=== PATIENT | male | born 1955 | race Two or more races ===

== ENCOUNTER 2018-05-07 10:13 | Emergency (ER) | payer OTHER ==
[~2018-05-07] VITALS: Ht 167.6 cm; Wt 99.8 kg
[2018-05-07] MEDS ORDERED: ETOMIDATE (2MG/ML) 20ML VIAL IV ONE ×3 (11:00→13:15)
[2018-05-07 13:22] VITALS: BP 162/95
== END 2018-05-07 14:24 | disposition home or self-care (01) ==
LOC: ER 10:13
DX: S53.105A Unspecified dislocation of left ulnohumeral joint, initial encounter (principal); S52.022A Displaced fracture of olecranon process without intraarticular extension of left ulna, initial encounter for closed fracture; S00.81XA Abrasion of other part of head, initial encounter; E11.9 Type 2 diabetes mellitus without complications; M10.9 Gout, unspecified; E78.5 Hyperlipidemia, unspecified; Y08.89XA Assault by other specified means, initial encounter; Y93.89 Activity, other specified; Y99.8 Other external cause status; Y92.89 Other specified places as the place of occurrence of the external cause
CPT/HCPCS: 24600; 73060; 73070; 73080; 73090; 99285; J7030

== ENCOUNTER 2019-04-11 11:06 | Emergency (ER) | payer MEDICAID, OTHER ==
[~2019-04-11] VITALS: Ht 167.6 cm; Wt 97.5 kg
[2019-04-11 11:15] VITALS: BP 150/77
== END 2019-04-11 12:19 | disposition home or self-care (01) ==
LOC: ER 11:06
DX: B86 Scabies (principal); E11.9 Type 2 diabetes mellitus without complications; E78.5 Hyperlipidemia, unspecified

== ENCOUNTER 2019-11-07 12:07 | Emergency (ER) | payer SELFPAY ==
[~2019-11-07] VITALS: Ht 167.6 cm; Wt 99.8 kg
[2019-11-07] MEDS ORDERED: cefTRIAXone SOD 1,000 MG VL IM ONE (14:30)
[2019-11-07] MEDS ORDERED: ETHYL CHLORIDE SPRAY TOP ONE (15:00)
[2019-11-07 15:46] VITALS: BP 127/76
== END 2019-11-07 16:02 | disposition home or self-care (01) ==
LOC: ER 12:07
DX: M79.5 Residual foreign body in soft tissue (principal); E11.9 Type 2 diabetes mellitus without complications; M10.9 Gout, unspecified; E78.5 Hyperlipidemia, unspecified
CPT/HCPCS: 10120; 73620; 73630; 96372; 99284; J0696

== ENCOUNTER 2021-03-01 10:49 | Emergency (ER) | payer MEDICAID ==
[~2021-03-01] VITALS: Ht 167.6 cm; Wt 95.3 kg
[2021-03-01 16:43] VITALS: BP 115/72
== END 2021-03-01 15:04 | disposition short-term general hospital (02) ==
LOC: ER 10:49
DX: H54.61 Unqualified visual loss, right eye, normal vision left eye (principal); E11.9 Type 2 diabetes mellitus without complications; E78.5 Hyperlipidemia, unspecified; I10 Essential (primary) hypertension
CPT/HCPCS: 70480

== ENCOUNTER 2023-01-21 11:08 | Emergency (ER) | payer MEDICARE, MEDICAID ==
[~2023-01-21] VITALS: Ht 167.6 cm; Wt 52.0 kg
[2023-01-21] MEDS ORDERED: FLUORESCEIN SOD OPTH TEST STRIP OP ONE (11:35)
[2023-01-21] MEDS ORDERED: SODIUM CHLORIDE 0.9% 1,000 ML IV ONE (11:45)
[2023-01-21] MEDS ORDERED: TETRACAINE HCL 0.5% OPTH(EYE) SOLN 4ML LEFTEYE ONE (11:45)
[2023-01-21] MEDS ORDERED: InsuLIN REG 1unit/0.01ml Soln (100units/ml) IV ONE (11:45)
[2023-01-21 12:02] LABS: Basophils # (auto) 0.1 10 ^3/uL (0-0.2); Basophils % (auto) 1.1 % (0.0-2.0); Eosinophils # (auto) 0.2 10 ^3/uL (0-0.8); Eosinophils % (auto) 1.7 % (0.0-7.0); Hematocrit 41.8 % (41.0-53.0); Hemoglobin 14.3 g/dL (13.5-17.5); Lymphocytes # (auto) 1.6 10 ^3/uL (0.4-5.4); Lymphocytes % (auto) 15.5 % (10.0-50.0); Mean Corpuscular Hemoglobin 29.7 pg (28.0-32.0); Mean Corpuscular Hgb Conc. 34.3 g/dL (32.0-36.0); Mean Corpuscular Volume 86.6 fL (80.0-100.0); Monocytes # (auto) 0.4 10 ^3/uL (0-1.3); Monocytes % (auto) 3.7 % (0.0-12.0); Neutrophils # (auto) 8.2 10 ^3/uL (1.6-8.6); Nucleated Red Blood Cells % 0.1 %; Red Blood Cells 4.83 10^6/uL (4.5-5.90); Red Cell Distribution Width 13.6 % (11.8-14.3); White Blood Cell 10.5 10^3/uL (4.4-10.8)
[2023-01-21 12:24] LABS: Albumin 2.8 g/dL (3.4-5.0); Calcium 9.2 mg/dL (8.5-10.1); Potassium 3.8 mmol/L (3.5-5.1)
[2023-01-21 12:28] LABS: BUN/Creatinine Ratio 15.5 (10.0-20.0); Bilirubin, Total 0.7 mg/dL (0.2-1.0); Total Protein 6.8 g/dL (6.4-8.2)
[2023-01-21] MEDS ORDERED: POLYSOL15 OP (13:19)
[2023-01-21 16:20] VITALS: BP 142/82
== END 2023-01-21 16:20 | disposition home or self-care (01) ==
LOC: ER 11:08
DX: D49.89 Neoplasm of unspecified behavior of other specified sites (principal); H10.9 Unspecified conjunctivitis; E11.9 Type 2 diabetes mellitus without complications; E78.5 Hyperlipidemia, unspecified; I10 Essential (primary) hypertension; M10.9 Gout, unspecified
CPT/HCPCS: 36415; 80053; 82962; 85025; 96361; 96374; 99283; J1815; J7030

== ENCOUNTER 2023-03-09 15:19 | Emergency (ER) | payer MEDICARE, MEDICAID ==
[~2023-03-09] VITALS: Ht 167.6 cm; Wt 77.5 kg
[~2023-03-09 15:19] MED LIST: POLYSOL28 OP
[2023-03-09] MEDS ORDERED: SODIUM CHLORIDE 0.9% 1,000 ML IV ONE (16:00)
[2023-03-09 16:18] LABS: Basophils # (auto) 0.1 10 ^3/uL (0-0.2); Basophils % (auto) 0.5 % (0.0-2.0); Eosinophils # (auto) 0.2 10 ^3/uL (0-0.8); Hematocrit 42.4 % (41.0-53.0); Hemoglobin 14.6 g/dL (13.5-17.5); Lymphocytes # (auto) 1.9 10 ^3/uL (0.4-5.4); Lymphocytes % (auto) 19.1 % (10.0-50.0); Mean Corpuscular Hemoglobin 29.6 pg (28.0-32.0); Mean Corpuscular Hgb Conc. 34.4 g/dL (32.0-36.0); Mean Corpuscular Volume 86.2 fL (80.0-100.0); Monocytes # (auto) 0.6 10 ^3/uL (0-1.3); Monocytes % (auto) 6.3 % (0.0-12.0); Neutrophils # (auto) 7.3 10 ^3/uL (1.6-8.6); Neutrophils % (auto) 72.1 % (37.0-80.0); Nucleated Red Blood Cells % 0.1 %; Red Blood Cells 4.92 10^6/uL (4.5-5.90); Red Cell Distribution Width 14.2 % (11.8-14.3); White Blood Cell 10.1 10^3/uL (4.4-10.8)
[2023-03-09 16:19] LABS: Urine Bacteria NONE SEEN /hpf (None Seen); Urine Blood 1+ /uL (Negative); Urine Hyaline Cast FEW /lpf (0 - 2); Urine Mucus FEW (None Seen); Urine Specific Gravity 1.019 (1.001-1.035); Urine WBC 2 /hpf (0 - 3)
[2023-03-09 16:43] LABS: Albumin 2.9 g/dL (3.4-5.0); Calcium 8.5 mg/dL (8.5-10.1); Potassium 3.6 mmol/L (3.5-5.1)
[2023-03-09 16:47] LABS: BUN/Creatinine Ratio 15.2 (10.0-20.0); Bilirubin, Total 1.1 mg/dL (0.2-1.0); Total Protein 6.4 g/dL (6.4-8.2)
[2023-03-09 19:15] VITALS: BP 149/85
== END 2023-03-09 19:19 | disposition home or self-care (01) ==
LOC: ER 15:19
DX: E11.65 Type 2 diabetes mellitus with hyperglycemia (principal); I10 Essential (primary) hypertension; M10.9 Gout, unspecified; E78.5 Hyperlipidemia, unspecified; Z79.899 Other long term (current) drug therapy
CPT/HCPCS: 36415; 80053; 81001; 82010; 85025; 99283; J7030

== ENCOUNTER 2023-03-25 09:02 | Emergency (ER) | payer MEDICARE, MEDICAID ==
[~2023-03-25] VITALS: Ht 393.7 cm; Wt 74.8 kg
[2023-03-25 09:28] LABS: Basophils # (auto) 0.1 10 ^3/uL (0-0.2); Basophils % (auto) 0.8 % (0.0-2.0); Eosinophils # (auto) 0.2 10 ^3/uL (0-0.8); Eosinophils % (auto) 2.2 % (0.0-7.0); Hematocrit 44.6 % (41.0-53.0); Hemoglobin 15.3 g/dL (13.5-17.5); Lymphocytes # (auto) 1.7 10 ^3/uL (0.4-5.4); Lymphocytes % (auto) 19.8 % (10.0-50.0); Mean Corpuscular Hemoglobin 29.8 pg (28.0-32.0); Mean Corpuscular Hgb Conc. 34.3 g/dL (32.0-36.0); Mean Corpuscular Volume 86.7 fL (80.0-100.0); Monocytes # (auto) 0.4 10 ^3/uL (0-1.3); Monocytes % (auto) 4.4 % (0.0-12.0); Neutrophils # (auto) 6.2 10 ^3/uL (1.6-8.6); Neutrophils % (auto) 72.8 % (37.0-80.0); Red Blood Cells 5.14 10^6/uL (4.5-5.90); Red Cell Distribution Width 14.4 % (11.8-14.3); White Blood Cell 8.4 10^3/uL (4.4-10.8)
[2023-03-25 09:54] LABS: Albumin 2.8 g/dL (3.4-5.0); Calcium 9.4 mg/dL (8.5-10.1); Potassium 4.2 mmol/L (3.5-5.1)
[2023-03-25 09:57] LABS: BUN/Creatinine Ratio 25.5 (10.0-20.0); Bilirubin, Total 0.8 mg/dL (0.2-1.0); Total Protein 7.4 g/dL (6.4-8.2)
[2023-03-25] MEDS ORDERED: KETOROLAC TROMETH 60MG/2ML VIAL IM ONE (10:45)
[2023-03-25 10:47] VITALS: BP 146/90
== END 2023-03-25 10:49 | disposition home or self-care (01) ==
LOC: ER 09:02
DX: R51.9 Headache, unspecified (principal); E11.9 Type 2 diabetes mellitus without complications; E78.5 Hyperlipidemia, unspecified; I10 Essential (primary) hypertension
CPT/HCPCS: 36415; 70450; 80053; 85025

== ENCOUNTER 2023-09-13 12:50 | Emergency (ER) | payer MEDICARE, MEDICAID ==
[~2023-09-13] VITALS: Ht 162.6 cm; Wt 84.0 kg
[2023-09-13] MEDS ORDERED: LABETALOL HCL 5 MG/ML 4ML SYRINGE IV ONE (13:00)
[2023-09-13 13:40] LABS: Basophils # (auto) 0.1 10 ^3/uL (0-0.2); Basophils % (auto) 0.7 % (0.0-2.0); Eosinophils # (auto) 0.3 10 ^3/uL (0-0.8); Hematocrit 37.4 % (41.0-53.0); Hemoglobin 12.6 g/dL (13.5-17.5); Lymphocytes # (auto) 1.6 10 ^3/uL (0.4-5.4); Lymphocytes % (auto) 18.2 % (10.0-50.0); Mean Corpuscular Hemoglobin 30.1 pg (28.0-32.0); Mean Corpuscular Hgb Conc. 33.8 g/dL (32.0-36.0); Mean Corpuscular Volume 88.9 fL (80.0-100.0); Monocytes # (auto) 0.6 10 ^3/uL (0-1.3); Monocytes % (auto) 7.2 % (0.0-12.0); Neutrophils # (auto) 6.2 10 ^3/uL (1.6-8.6); Neutrophils % (auto) 70.9 % (37.0-80.0); White Blood Cell 8.7 10^3/uL (4.4-10.8)
[2023-09-13 13:57] LABS: INR 0.96 (0.9-1.15); Partial Thromboplastin Time 32.2 SEC (24.5-34.5); Prothrombin Time 10.1 sec (9.3-11.8)
[2023-09-13 13:59] LABS: Alkaline Phosphatase 109 U/L (46-116)
[2023-09-13 14:00] LABS: Alanine Aminotransferase 13 U/L (7-40); Albumin 3.7 g/dL (3.2-4.8); Anion Gap 7 (5-15); Aspartate Aminotransferase 24 U/L (13-40); BUN/Creatinine Ratio 23.4 (10.0-20.0); Bilirubin, Total 0.6 mg/dL (0.2-1.0); Blood Urea Nitrogen 26 mg/dL (9-23); Calcium 8.7 mg/dL (8.7-10.4); Carbon Dioxide 25 mmol/L (20-30); Chloride 108 mmol/L (98-107); Glucose 101 mg/dL (74-106); Magnesium 2.2 mg/dL (1.6-2.6); Potassium 4.1 mmol/L (3.5-5.1); Sodium 140 mmol/L (136-145); Total Protein 6.3 g/dL (5.7-8.2)
[2023-09-13] MEDS ORDERED: IOHEXOL 350 MG/ML 100ML IJ ONE (16:51)
[2023-09-13] MEDS ORDERED: FUROSEMIDE 40 MG/4 ML VIAL IV ONE (18:45)
[2023-09-13 21:25] VITALS: PULSE 79; RESP 18; TEMP 98.9; O2SAT 98
[2023-09-13] MEDS ORDERED: AML5T PO (21:35)
[2023-09-13] MEDS ORDERED: CEPH500C PO (21:35)
[2023-09-13] MEDS ORDERED: NEOMYCIN-BACITRACIN-POLYM UNITDOSE PKG TOP OINT TOP ONE (21:45)
[2023-09-13] MEDS ORDERED: FURO1TAB33 PO (21:55)
[2023-09-13 22:38] VITALS: BP 158/80; PULSE 73; RESP 18; O2SAT 98
== END 2023-09-13 22:57 | disposition home or self-care (01) ==
LOC: ER 12:50
DX: T24.231A Burn of second degree of right lower leg, initial encounter (principal); R60.0 Localized edema; I16.9 Hypertensive crisis, unspecified; J90 Pleural effusion, not elsewhere classified; R07.89 Other chest pain; E11.9 Type 2 diabetes mellitus without complications; Z79.899 Other long term (current) drug therapy; X16.XXXA Contact with hot heating appliances, radiators and pipes, initial encounter; Y93.89 Activity, other specified; Y92.89 Other specified places as the place of occurrence of the external cause; Y99.8 Other external cause status
CPT/HCPCS: 36415; 71045; 71275; 80053; 83735; 83880; 84484; 85025; 85379; 85610; 85730; 93005; 96374; 96375; 99285; J1940; J3490; J7030; Q9967

== ENCOUNTER 2023-12-18 09:30 | Inpatient (IN) | payer MEDICARE, MEDICAID ==
[~2023-12-18] VITALS: Ht 167.6 cm; Wt 92.9 kg
[~2023-12-18 09:30] MED LIST changes: +AML5T PO; +CEPH500C PO; +FURO1TAB33 PO
[2023-12-18] MEDS: ALBUTEROL SULF 2.5 MG/0.5ML(0.5%) NEB SOLN NEB ONE (09:59)
[2023-12-18] MEDS: IPRATROPIUM BROM 0.5 MG/2.5ML INH SOL NEB ONE (09:59)
[2023-12-18 10:09] VITALS: PULSE 74; RESP 20; O2SAT 99
[2023-12-18 10:23] LABS: Basophils # (auto) 0 10 ^3/uL (0-0.2); Basophils % (auto) 0.8 % (0.0-2.0); Eosinophils # (auto) 0.2 10 ^3/uL (0-0.8); Eosinophils % (auto) 4.1 % (0.0-7.0); Hematocrit 35.5 % (41.0-53.0); Hemoglobin 11.6 g/dL (13.5-17.5); Lymphocytes # (auto) 1.3 10 ^3/uL (0.4-5.4); Lymphocytes % (auto) 20.6 % (10.0-50.0); Mean Corpuscular Hemoglobin 29.2 pg (28.0-32.0); Mean Corpuscular Hgb Conc. 32.8 g/dL (32.0-36.0); Monocytes # (auto) 0.3 10 ^3/uL (0-1.3); Monocytes % (auto) 5.7 % (0.0-12.0); Neutrophils # (auto) 4.2 10 ^3/uL (1.6-8.6); Neutrophils % (auto) 68.8 % (37.0-80.0); Red Blood Cells 3.98 10^6/uL (4.5-5.90); White Blood Cell 6.1 10^3/uL (4.4-10.8)
[2023-12-18 10:30] LABS: Alanine Aminotransferase 20 U/L (7-40); Alkaline Phosphatase 111 U/L (46-116); Anion Gap 4 (5-15); BUN/Creatinine Ratio 30.5 (10.0-20.0); Blood Urea Nitrogen 43 mg/dL (9-23); Calcium 9.1 mg/dL (8.5-10.1); Carbon Dioxide 26 mmol/L (20-30); Chloride 110 mmol/L (98-107); Glucose 125 mg/dL (74-106); Potassium 4.7 mmol/L (3.5-5.1); Sodium 140 mmol/L (136-145)
[2023-12-18 10:31] LABS: Albumin 3.7 g/dL (3.2-4.8); Aspartate Aminotransferase 26 U/L (13-40); Bilirubin, Total 0.5 mg/dL (0.2-1.0); Total Protein 5.9 g/dL (5.7-8.2)
[2023-12-18] MEDS: LABETALOL HCL 5 MG/ML 4ML SYRINGE IV ONE (10:42)
[2023-12-18 10:56] LABS: INR 0.99 (0.9-1.15); Prothrombin Time 10.4 sec (9.3-11.8)
[2023-12-18] MEDS: ASPirin-EC 325mg tab PO ONE (12:33)
[2023-12-18] MEDS: FUROSEMIDE 40 MG/4 ML VIAL IV ONE (12:37)
[2023-12-18 20:00] VITALS: PULSE 71; RESP 18; O2SAT 96
[2023-12-18] MEDS: METOPROLOL TARTRATE 50 MG TAB PO SCH (20:04)
[2023-12-18] MEDS: FUROSEMIDE 20 MG/2 ML VIAL IV SCH (20:07)
[2023-12-18] MEDS: amLODIPine BESYLATE 5 MG TAB PO SCH (20:07)
[2023-12-18] MEDS ORDERED: METOPROLOL TARTRATE 50 MG TAB PO SCH (22:00)
[2023-12-18] MEDS: ATORVASTATIN 20 MG TAB PO SCH (23:05)
[2023-12-19] VITALS (10 sets, daily range): BP systolic 103–145; BP diastolic 61–79; PULSE 5–64; RESP 14–19; TEMP 96.8–98.2; O2SAT 96–98
[2023-12-19] MEDS: hydrALAZINE HCL 20 MG/ML VL IV PRN (00:30)
[2023-12-19 06:30] LABS: Basophils # (auto) 0.1 10 ^3/uL (0-0.2); Basophils % (auto) 1.1 % (0.0-2.0); Eosinophils # (auto) 0.2 10 ^3/uL (0-0.8); Eosinophils % (auto) 4.4 % (0.0-7.0); Hematocrit 32.2 % (41.0-53.0); Hemoglobin 10.7 g/dL (13.5-17.5); Lymphocytes # (auto) 1.2 10 ^3/uL (0.4-5.4); Lymphocytes % (auto) 21.3 % (10.0-50.0); Mean Corpuscular Hemoglobin 29.6 pg (28.0-32.0); Mean Corpuscular Hgb Conc. 33.2 g/dL (32.0-36.0); Mean Corpuscular Volume 89.1 fL (80.0-100.0); Monocytes # (auto) 0.4 10 ^3/uL (0-1.3); Monocytes % (auto) 7.1 % (0.0-12.0); Neutrophils # (auto) 3.6 10 ^3/uL (1.6-8.6); Neutrophils % (auto) 66.1 % (37.0-80.0); Nucleated Red Blood Cells % 0.1 %; Red Blood Cells 3.62 10^6/uL (4.5-5.90); Red Cell Distribution Width 15.9 % (11.8-14.3); White Blood Cell 5.5 10^3/uL (4.4-10.8)
[2023-12-19 06:53] LABS: Alanine Aminotransferase 15 U/L (7-40); Albumin 3.4 g/dL (3.2-4.8); Alkaline Phosphatase 82 U/L (46-116); Anion Gap 8 (5-15); Aspartate Aminotransferase 25 U/L (13-40); BUN/Creatinine Ratio 23.3 (10.0-20.0); Bilirubin, Total 0.6 mg/dL (0.2-1.0); Blood Urea Nitrogen 35 mg/dL (9-23); Calcium 9.1 mg/dL (8.5-10.1); Carbon Dioxide 22 mmol/L (20-30); Chloride 110 mmol/L (98-107); Cholesterol 157 mg/dL (< 200); Glucose 87 mg/dL (74-106); HDL Cholesterol 57 mg/dL (40-59); LDL Cholesterol 85 mg/dL (< 100); Potassium 4.2 mmol/L (3.5-5.1); Sodium 140 mmol/L (136-145); Total Protein 5.7 g/dL (5.7-8.2); Triglycerides 122 mg/dL (< 150)
[2023-12-19] MEDS: ENOXAPARIN SOD 40 MG/0.4 ML SYRINGE SC SCH (09:19)
[2023-12-19 10:37] LABS: COVID19 ANTIGEN SOFIA FIA NEGATIVE (NEGATIVE)
[2023-12-19 11:02] LABS: Folate (Folic Acid) 8.65 ng/mL (>5.38)
[2023-12-19 11:52] LABS: Amphetamine Screen, Urine Neg (NEGATIVE); Protein, Urine 213.4 mg/dL (0.0-11.9)
[2023-12-19 11:53] LABS: Barbiturate Scree,Urine Neg (NEGATIVE); Benzodiazephine Screen, Urine Neg (NEGATIVE); Cannabinoid Screen, Urine Pos (NEGATIVE); Cocaine Screen, Urine Neg (NEGATIVE); Opiate Scree,Urine Neg (NEGATIVE); Phencyclidine Screen, Urine Neg (NEGATIVE)
[2023-12-19 11:54] LABS: Creatinine, Urine 18.42 mg/dL (30.0-125.0); Urine Protein/Creatinine Ratio 11.59
[2023-12-19 11:56] LABS: Urine Bacteria NONE SEEN /hpf (None Seen); Urine Blood 1+ /uL (Negative); Urine Clarity Clear (Clear); Urine Color Colorless (Yellow); Urine Protein, UAD 2+ (Negative); Urine Specific Gravity 1.008 (1.001-1.035); Urine Urobilinogen Normal (Negative); Urine WBC <1 /hpf (0 - 3); Urine pH 6.5 (5.0-9.0)
[2023-12-19 13:23] LABS: Rapid Influenza A Negative (Negative); Rapid Influenza B Negative (Negative)
[2023-12-19 14:38] LABS: Hepatitis B Surface Antibody Negative (Negative)
[2023-12-19 14:50] LABS: Hepatitis B Surface Antigen Negative (Negative)
[2023-12-19 15:11] LABS: Hepatitis B Core IgM Negative
[2023-12-20] VITALS (11 sets, daily range): BP systolic 125–145; BP diastolic 58–86; PULSE 52–61; RESP 16–18; TEMP 97.6–98.5; O2SAT 96–99
[2023-12-20 06:37] LABS: Chloride 110 mmol/L (98-107); Potassium 4.7 mmol/L (3.5-5.1); Sodium 141 mmol/L (136-145)
[2023-12-20 06:38] LABS: Anion Gap 3 (5-15); Carbon Dioxide 28 mmol/L (20-30)
[2023-12-20 06:39] LABS: Calcium 9.1 mg/dL (8.5-10.1)
[2023-12-20 06:43] LABS: Glucose 103 mg/dL (74-106)
[2023-12-20 06:44] LABS: BUN/Creatinine Ratio 25.9 (10.0-20.0); Blood Urea Nitrogen 41 mg/dL (9-23)
[2023-12-20 08:07] LABS: Complement C3 133 mg/dL (82-167); Immunoglobulin A 482 mg/dL (61-437); Immunoglobulin G, Serum 791 mg/dL (603-1613); Immunoglobulin M 53 mg/dL (20-172)
[2023-12-20] MEDS ORDERED: METF-370 PO (10:56)
[2023-12-20] MEDS ORDERED: LISI10TA34 PO (10:56)
[2023-12-20] MEDS ORDERED: FERR325T20 PO (10:56)
[2023-12-20 11:06] LABS: Anti-Centromere B Antibody <0.2 AI (0.0-0.9); Anti-Jo-1 Antibody <0.2 AI (0.0-0.9); Anti-dsDNA Antibody 6 IU/mL (0-9); Antichromatin Antibody <0.2 AI (0.0-0.9); Antiscleroderma-70 Antibody <0.2 AI (0.0-0.9); RNP Antibody <0.2 AI (0.0-0.9); Sjogren's Anti-SS-A Antibody <0.2 AI (0.0-0.9); Sjogren's Anti-SS-B Antibody <0.2 AI (0.0-0.9); Smith Antibody <0.2 AI (0.0-0.9)
[2023-12-20 13:07] LABS: Albumin 2.8 g/dL (2.9-4.4); Alpha-1-Globulin 0.3 g/dL (0.0-0.4); Alpha-2-Globulin 1.1 g/dL (0.4-1.0); Gamma Globulin 0.8 g/dL (0.4-1.8); Globulin Total 3.6 g/dL (2.2-3.9); Protein Total Serum 6.4 g/dL (6.0-8.5)
[2023-12-21] VITALS (7 sets, daily range): BP systolic 135–156; BP diastolic 66–83; PULSE 51–60; RESP 16–19; TEMP 98–98.5; O2SAT 95–100
[2023-12-21 07:31] LABS: Anion Gap 3 (5-15); Carbon Dioxide 28 mmol/L (20-30); Chloride 109 mmol/L (98-107); Potassium 4.5 mmol/L (3.5-5.1); Sodium 140 mmol/L (136-145)
[2023-12-21 07:37] LABS: BUN/Creatinine Ratio 27.6 (10.0-20.0); Blood Urea Nitrogen 45 mg/dL (9-23); Glucose 113 mg/dL (74-106)
[2023-12-21] MEDS: FUROSEMIDE 20 MG/2 ML VIAL IV SCH (11:24)
[2023-12-21 13:07] LABS: Cytoplasmic (C-ANCA) <1:20 titer (Neg:<1:20); Perinuclear (P-ANCA) <1:20 titer (Neg:<1:20)
[2023-12-21 19:06] LABS: Antiglomerular BM Antibody <0.2 units (0.0-0.9); Antimyeloperoxidase (MPO) Ab <0.2 units (0.0-0.9); Antiproteinase 3 (PR-3) Ab <0.2 units (0.0-0.9)
[2023-12-22] VITALS (9 sets, daily range): BP systolic 111–150; BP diastolic 67–79; PULSE 46–61; RESP 18; TEMP 97.4–98.2; O2SAT 96–99
[2023-12-22] MEDS: amLODIPine BESYLATE 5 MG TAB PO SCH (10:46)
[2023-12-22] MEDS ORDERED: LIDOCAINE 2%HCL (LOCAL ANESTH.) INJ 10ml MDV ONE (12:27)
[2023-12-22] MEDS ORDERED: GELATIN 1 SPONGE SIZE 50 TOP ONE (12:36)
[2023-12-22] MEDS: fentaNYL CITRATE 100 MCG/2 ML VL IV ONE (12:48)
[2023-12-22] MEDS: MIDAZOLAM HCL 2MG/2ML 2ml VIAL (1mg/ml) IV ONE (12:48)
[2023-12-22 16:06] LABS: Albumin Urine 65.7 % (.); Alpha-1-Globulin Urine 7.5 % (.); Alpha-2-Globulin Urine 5.8 % (.); Beta Globulin Urine 13.5 % (.); Gamma Globulin Urine 7.5 % (.); Protein Total Urine 231.3 mg/dL (Not Estab.)
[2023-12-23 01:09] VITALS: BP 150/80; PULSE 51; RESP 18; TEMP 98; O2SAT 93
[2023-12-23 05:00] VITALS: BP 125/67; PULSE 55; RESP 18; TEMP 98.1; O2SAT 94
[2023-12-23 07:09] LABS: Basophils # (auto) 0.1 10 ^3/uL (0-0.2); Basophils % (auto) 1.4 % (0.0-2.0); Eosinophils # (auto) 0.2 10 ^3/uL (0-0.8); Eosinophils % (auto) 3.4 % (0.0-7.0); Hematocrit 29.7 % (41.0-53.0); Hemoglobin 9.7 g/dL (13.5-17.5); Lymphocytes % (auto) 21.2 % (10.0-50.0); Mean Corpuscular Hgb Conc. 32.6 g/dL (32.0-36.0); Monocytes # (auto) 0.4 10 ^3/uL (0-1.3); Neutrophils # (auto) 3.2 10 ^3/uL (1.6-8.6); Red Blood Cells 3.34 10^6/uL (4.5-5.90); White Blood Cell 4.9 10^3/uL (4.4-10.8)
[2023-12-23 07:22] LABS: Anion Gap 4 (5-15); Calcium 8.8 mg/dL (8.5-10.1); Carbon Dioxide 28 mmol/L (20-30); Chloride 109 mmol/L (98-107); Potassium 4.6 mmol/L (3.5-5.1); Sodium 141 mmol/L (136-145)
[2023-12-23 07:28] LABS: BUN/Creatinine Ratio 30.1 (10.0-20.0); Blood Urea Nitrogen 49 mg/dL (9-23); Glucose 86 mg/dL (74-106)
[2023-12-23 08:00] VITALS: PULSE 55; PULSE 59; RESP 20; O2SAT 94
[2023-12-23 08:18] VITALS: BP 112/52; PULSE 59; RESP 20; TEMP 97.9; O2SAT 94
[2023-12-23] MEDS ORDERED: ATOR20TA50 PO (12:02)
[2023-12-23] MEDS ORDERED: AML5T PO (12:02)
[2023-12-23] MEDS ORDERED: FURO1TAB31 PO (12:02)
[2023-12-23] MEDS ORDERED: MET50T PO (12:02)
[2023-12-23 12:33] VITALS: BP 114/66; PULSE 64; RESP 17; TEMP 97.5; O2SAT 93
[2023-12-23 12:57] VITALS: BP 140/64; PULSE 59; TEMP 36.4; O2SAT 96
== END 2023-12-23 15:15 | disposition home or self-care (01) | DRG 291 ==
LOC: ER 09:30 → TELE 13:10 → TELE-WESTW 12-19 01:56
PROVIDERS: ADMIT Nurse Practitioner Family; ATTEND Internal Medicine
DX: I13.0 Hypertensive heart and chronic kidney disease with heart failure and stage 1 through stage 4 chronic kidney disease, or unspecified chronic kidney disease (principal); I50.33 Acute on chronic diastolic (congestive) heart failure; I16.1 Hypertensive emergency; N17.9 Acute kidney failure, unspecified; Z20.822 Contact with and (suspected) exposure to COVID-19; D64.9 Anemia, unspecified; M17.0 Bilateral primary osteoarthritis of knee; I25.10 Atherosclerotic heart disease of native coronary artery without angina pectoris; E11.22 Type 2 diabetes mellitus with diabetic chronic kidney disease; N18.31 Chronic kidney disease, stage 3a; E66.9 Obesity, unspecified; Z68.33 Body mass index [BMI] 33.0-33.9, adult; Z79.899 Other long term (current) drug therapy; Z82.49 Family history of ischemic heart disease and other diseases of the circulatory system; Z83.3 Family history of diabetes mellitus
CPT/HCPCS: 10005; 36415; 71045; 71250; 74150; 74176; 76705; 76775; 77012; 80048; 80053; 80061; 80307; 81001; 82570; 82607; 82746; 82784; 83036; 83516; 83520; 83615; 83880; 84155; 84156; 84165; 84166; 84443; 84484; 85025; 85379; 85610; 86160; 86225; 86235; 86256; 86334; 86335; 86703; 86705; 86706; 86803; 87081; 87340; 87426; 87804; 93005; 93306; 93970; 94640; 96374; 96375; 97110; 97116; 97163; 97530; G0378; J2001; J2250; J3490

== ENCOUNTER 2024-08-06 03:56 | Inpatient (IN) | payer MEDICARE, MEDICAID ==
[2024-08-06] VITALS (12 sets, daily range): BP systolic 131–204; BP diastolic 65–93; PULSE 53–75; RESP 17–20; TEMP 97.4–97.5; O2SAT 95–100
[~2024-08-06] VITALS: Ht 167.6 cm; Wt 82.3 kg
[~2024-08-06 03:56] MED LIST changes: +AMLO1TAB23 PO; +ATOR20TA50 PO; -CEPH500C PO; +FERR325T20 PO; +FURO1TAB31 PO; -FURO1TAB33 PO; +LISI10TA34 PO; +MET50T PO; +METF-370 PO; -POLYSOL28 OP; +POTA-228 PO
--- NOTE | 2024-08-06 04:24 | ED.PDOC ---
History of Present Illness HPI Comments 69 y/o M, with CHF, DM, HLD, HTN, and medication non-compliancy, is BIBA for c/o shortness of breath, today. Per EMS report, patient endorses on unprovoked and sudden onset of difficulty breathing, while going to use his bathroom at home, at 0000, this morning. Patient was found on scene with a SpO2 of 94%RA and bilateral rales in addition to a blood pressure of 220/103 and a blood glucose of 112. All remaining vitals were within normal limits. En route, patient received 2x 0.4mg NTG, with SpO2 improving to mid 90's range. At time of assessment, patient comments on being non-compliant with all his prescribed medications for the past 4-5x months. Patient endorses no recent sick contact, travel, spoiled food, injuries, or substance use/exposure. Patient denies having any chest pain, wheezing, cough, dyspnea, fever, chills, or other associated symptoms or modifiers at this time. Chief Complaint: Shortness of Breath Time Seen by MD: 04:10 Primary Care Provider: ? Reviewed Notes: Nurses Notes, Client Care Manager Notes, Medications, Allergies Allergies: Coded Allergies: NO KNOWN ALLERGIES (Unverified , 05/07/18) Home Meds Active Scripts Furosemide (Lasix) 40 Mg Tab, 40 MG PO BID for 30 Days, #60 TAB 3 Refills Prov:UMA GARNICA MD 12/23/23 Atorvastatin Calcium (ATORVASTATIN CALCIUM) 20 Mg Tab, 20 MG PO HS for 30 Days, #30 TAB 3 Refills Prov:UMA GARNICA MD 12/23/23 Metoprolol Tartrate (LOPRESSOR TABLET) 50 Mg Tb, 50 MG PO BID for 30 Days, #60 TAB 3 Refills Prov:UMA GARNICA MD 12/23/23 Amlodipine Besylate (NORVASC TABLET) 5 Mg Tb, 10 MG PO DAILY for 30 Days, #30 TAB 3 Refills Prov:UMA GARNICA MD 12/23/23 Reported Medications Ferrous Sulfate (Ferosul) 325 Mg Tab, 1 TAB PO DAILY 12/20/23 Metformin Hydrochloride (Metformin Hcl) 500 Mg Tab, 1 TAB PO DAILY 12/20/23 Lisinopril (Lisinopril) 10 Mg Tab, 1 TAB PO DAILY 12/20/23 Information Source: Patient, Emergency Med Personnel Mode of Arrival: EMS Severity: Moderate Timing: Hours Duration: Since onset Prehospital treatment: 12 Lead EKG, Accucheck (112), Process Stripper, NTG (2x 0.4mg ) Past Medical History PAST MEDICAL HISTORY: CHF, DM, High Lipids, HTN Past Medical History (Other): medication non-compliancy Surgical History: Denies all surgeries Family History Family History: Reviewed,noncontributory to illness Social History Smoker: Non-Smoker Alcohol: Denies ETOH Use Drugs: Denies Drug Use Lives In: Home Constitutional: denies: chills, diaphoresis, fatigue, fever, malaise, sweats, weakness, others EENTM: denies: blurred vision, double vision, ear bleeding, ear discharge, ear drainage, ear pain, ear ringing, eye pain, eye redness, hearing loss, mouth pain, mouth swelling, nasal discharge, nose bleeding, nose congestion, nose pain, photophobia, tearing, throat pain, throat swelling, voice changes, others Respiratory: reports: shortness of breath; denies: cough, hemoptysis, orthopnea, SOB at rest, SOB with excertion, stridor, wheezing, others Cardiovascular: denies: chest pain, dizzy spells, diaphoresis, Dyspnea on exertion, edema, irregular heart beat, left arm pain, lightheadedness, palpitations, PND, syncope, others Gastrointestinal: denies: abdomen distended, abdominal pain, blood streaked bowels, constipated, diarrhea, dysphagia, difficulty swallowing, hematemesis, melena, nausea, poor appetite, poor fluid intake, rectal bleeding, rectal pain, vomiting, others Genitourinary: denies: burning, dysuria, flank pain, frequency, hematuria, incontinence, penile discharge, penile sore, pain, testicle pain, testicle swelling, urgency, others Neurological: denies: dizziness, fainting, headache, left sided numbness, left sided weakness, numbness, paresthesia, pre-existing deficit, right sided numbness, right sided weakness, seizure, speech problems, tingling, tremors, weakness, others Musculoskeletal: denies: back pain, gout, joint pain, joint swelling, muscle pain, muscle stiffness, neck pain, others Integumetry: denies: bruises, change in color, change in hair/nails, dryness, laceration, lesions, lumps, rash, wounds, others Allergic/Immunocompromised: denies: Difficulty Healing, Frequent Infections, Hives, Itching, others Hematologic/Lymphatic: denies: anemia, blood clots, easy bleeding, easy bruising, swollen glands, others Endocrine: denies: excessive hunger, excessive sweating, excessive thirst, excessive urination, flushing, intolerance to cold, intolerance to heat, u nexplained weight gain, unexplained weight loss, others Psychiatric: denies: anxiety, bipolar disorder, depression, hopeless, panic disorder, schizophrenia, sleepless, suicidal, others All Other Systems: Reviewed and Negative Physical Exam General Appearance: Moderate Distress HEENT: Normal ENT Inspection, Pharynx Normal, TMs Normal Neck: Full Range of Motion, Non-Tender, Normal, Normal Inspection Respiratory: Other (Coarse breath sounds) Cardiovascular: No Edema, No JVD, No Murmur, No Gallop, Normal Peripheral Pulses, Regular Rate/Rhythm Breast Exam: Deferred Gastrointestinal: No Organomegaly, Non Tender, No Pulsatile Mass, Normal Bowel Sounds, Soft Genitalia: Deferred Pelvic: Deferred Rectal: Deferred Extremities: Pedal edema Musculoskeletal : Apperance: Normal Neurologic: Alert Cerebellar Function: NOT DONE Reflexes: NOT DONE Skin: Normal Color Peripheral Pulses: 3+ Radial (R), 3+ Radial (L) Lymphatic: No Adenopathy Was a procedure done? Was a procedure done?: No EKG EKG : Pulse Rate (adult): 85 [place]: Normal Cardiac Rhythm: NSR Block: None Hypertrophy: None ST: Normal Differential Dx Considerations may include: PNA, bronchitis, Covid19, URI, PE, medication non-compliancy, CHF exacerbation X-Ray, Labs, Meds, VS Vital Signs Date Time Temp Pulse Resp B/P (MAP) Pulse Ox O2 Delivery O2 Flow Rate FiO2 08/06/24 04:50 188/81 08/06/24 04:41 188/81 08/06/24 04:30 98.0 75 18 188/81 (116) 95 98.0 08/06/24 04:24 85 08/06/24 04:02 98.7 90 20 189/91 (123) 95 98.7 08/06/24 04:02 Room Air 08/06/24 04:02 98.7 90 20 189/91 (123) 95 08/06/24 03:59 85 Lab Test 08/06/24 04:00 Range/Units White Blood Count 6.0 4.4-10.8 10^3/uL Red Blood Count 3.09 L 4.5-5.90 10^6/uL Hemoglobin 9.8 L 13.5-17.5 g/dL Hematocrit 29.0 L 41.0-53.0 % Mean Corpuscular Volume 93.8 80.0-100.0 fL Mean Corpuscular Hemoglobin 31.6 28.0-32.0 pg Mean Corpuscular Hemoglobin Concent 33.7 32.0-36.0 g/dL Red Cell Distribution Width 14.8 H 11.8-14.3 % Platelet Count 196 140-450 10^3/uL Mean Platelet Volume 8.6 6.9-10.8 fL Neutrophils (%) (Auto) 65.6 37.0-80.0 % Lymphocytes (%) (Auto) 21.4 10.0-50.0 % Monocytes (%) (Auto) 7.0 0.0-12.0 % Eosinophils (%) (Auto) 5.2 0.0-7.0 % Basophils (%) (Auto) 0.8 0.0-2.0 % Neutrophils # (Auto) 4.0 1.6-8.6 10 ^3/uL Lymphocytes # (Auto) 1.3 0.4-5.4 10 ^3/uL Monocytes # (Auto) 0.4 0-1.3 10 ^3/uL Eosinophils # (Auto) 0.3 0-0.8 10 ^3/uL Basophils # (Auto) 0 0-0.2 10 ^3/uL Nucleated Red Blood Cells 0.0 % Sodium Level 142 136-145 mmol/L Potassium Level 5.3 H 3.5-5.1 mmol/L Chloride Level 115 H 98-107 mmol/L Carbon Dioxide Level 18 L 20-31 mmol/L Anion Gap 9 5-15 Blood Urea Nitrogen 54 H 9-23 mg/dL Creatinine 3.76 H 0.700-1.30 mg/dL Glomerular Filtration Rate Calc 17 >90 mL/min BUN/Creatinine Ratio 14.4 10.0-20.0 Serum Glucose 101 74-106 mg/dL Calcium Level 8.7 8.7-10.4 mg/dL Troponin I High Sensitivity 29 </=54 ng/L B-Type Natriuretic Peptide Pending Current Medications Medications (Trade) Dose Ordered Sig/Scott Route Start Time Stop Time Status Last Admin Furosemide (Lasix Injection) 40 mg ONCE ONCE IV 08/06/24 04:15 08/06/24 04:16 DC 08/06/24 04:41 Clonidine HCl (Catapres Tablet) 0.1 mg ONCE ONCE PO 08/06/24 04:45 08/06/24 04:46 DC 08/06/24 04:50 Patient alert. Complaining of shortness a breath. He does have CHF. Vitals stable. Mild lower extremity edema. Establish intravenous access. Was given Lasix. Chest x-ray reviewed does show CHF with pneumonia. EKG reviewed does not show any acute process. Reviewed his previous visit. Explained to the patient. Continue cardiac monitoring. Time of 1ST Reevaluation: 04:40 Reevaluation 1ST: Unchanged Patient Education/Counseling: Diagnosis, Treatment Family Education/Counseling: No Family Present Departure 1 Departure Time of Disposition: 04:33 Impression: Primary Impression: Congestive heart failure Qualified Codes: I50.43 - Acute on chronic combined systolic (congestive) and diastolic (congestive) heart failure Additional Impressions: Uncontrolled diabetes mellitus Qualified Codes: E13.65 - Other specified diabetes mellitus with hyperglycemia Hypertensive urgency Pneumonia Qualified Codes: J18.9 - Pneumonia, unspecified organism Disposition: ADMITTED INPATIENT Admit to: Med Surg Condition: Guarded Critical Care Note Critical Care Time?: Yes (90 min-critical care time only) Stability Stability form required: No Heart Score Heart Score: Heart Score Response (Comments) Value History Moderate Suspicious 1 EKG Normal 0 Age >65 2 Risk Factors >3 or Hx ASHD 2 Troponin Normal limit 0 Total 5 I personally scribed for LADONNA NORRIS MD ([email or web address]) on 08/06/24 at 04:24. Electronically submitted by Gene Allen [email or web address]). LADONNA NORRIS MD Aug 06, 2024 04:24
[2024-08-06 04:35] LABS: Basophils # (auto) 0 10 ^3/uL (0-0.2); Basophils % (auto) 0.8 % (0.0-2.0); Eosinophils # (auto) 0.3 10 ^3/uL (0-0.8); Eosinophils % (auto) 5.2 % (0.0-7.0); Hemoglobin 9.8 g/dL (13.5-17.5); Lymphocytes # (auto) 1.3 10 ^3/uL (0.4-5.4); Lymphocytes % (auto) 21.4 % (10.0-50.0); Mean Corpuscular Hemoglobin 31.6 pg (28.0-32.0); Mean Corpuscular Hgb Conc. 33.7 g/dL (32.0-36.0); Mean Corpuscular Volume 93.8 fL (80.0-100.0); Monocytes # (auto) 0.4 10 ^3/uL (0-1.3); Neutrophils % (auto) 65.6 % (37.0-80.0); Platelet Count (auto) 196 10^3/uL (140-450); Red Blood Cells 3.09 10^6/uL (4.5-5.90); Red Cell Distribution Width 14.8 % (11.8-14.3)
[2024-08-06 04:36] LABS: Chloride 115 mmol/L (98-107); Potassium 5.3 mmol/L (3.5-5.1); Sodium 142 mmol/L (136-145)
[2024-08-06 04:37] LABS: Anion Gap 9 (5-15); Calcium 8.7 mg/dL (8.7-10.4); Carbon Dioxide 18 mmol/L (20-31)
--- NOTE | 2024-08-06 04:38 | DVH ---
CHEST RADIOGRAPH Indication:sob Technique: Single frontal view of the chest was obtained Comparison: XY CHEST PORTABLE on DOS: 01/03/24 FINDINGS: Lines and Tubes: None Lungs: Diffuse bilateral airspace and interstitial opacities. Pleura: No effusion. No pneumothorax. Cardiomediastinal contours: Unremarkable Bones: No acute osseous abnormality. IMPRESSION: 1. Bilateral interstitial and airspace opacities which may reflect edema or pneumonia.
[2024-08-06] MEDS: FUROSEMIDE 40 MG/4 ML VIAL IV ONE (04:41)
[2024-08-06 04:42] LABS: Blood Urea Nitrogen 54 mg/dL (9-23); Glucose 101 mg/dL (74-106)
[2024-08-06 04:44] LABS: BUN/Creatinine Ratio 14.4 (10.0-20.0)
[2024-08-06] MEDS: cloNIDine HCL 0.1 MG TAB PO ONE (04:50)
[2024-08-06] MEDS: levoFLOXacin 500MG 100 ML IV ONE (05:55)
[2024-08-06] MEDS ORDERED: ONDANSETRON HCL 4 MG/2 ML VIAL IV PRN (14:30)
[2024-08-06] MEDS ORDERED: ACETAMINOPHEN 325 MG TAB PO PRN (14:30)
[2024-08-06] MEDS ORDERED: DOCUSATE SOD 100 MG CAP PO PRN (14:30)
[2024-08-06] MEDS ORDERED: DEXTROSE (50%) 50ML SYRG IV PRN (14:30)
[2024-08-06] MEDS ORDERED: HYDROcodone-ACET 5/325MG TAB PO PRN (14:30)
[2024-08-06] MEDS: cloNIDine HCL 0.1 MG TAB PO PRN (14:54)
--- NOTE | 2024-08-06 14:59 | ECG ---
[facility] Test Date: 2024-08-06 Test Time: 03:59:36 Pat Name: HILTON COLEMAN Department: er Room: 0294T Gender: M Cashier Gambling: valerie : 1954-12-08 Requested By: LADONNA NORRIS Order Number: [id number] Reading MD: Sebastian Li Measurements Intervals [place] Rate: 85 P: 51 GA: 216 QRS: 91 QRSD: 94 T: 22 QT: 371 QTc: 442 Interpretive Statements Sinus rhythm Borderline prolonged GA interval Right axis deviation Electronically Signed On 08-10-2024 17:05:47 PST by Sebastian Li Please click the below link to view image of tracing.
[2024-08-06] MEDS: DOXYCYCLINE 100MG/250ML 250 ML IV SCH (15:03)
--- NOTE | 2024-08-06 15:32 | DVHHP2 ---
History of Present Illness Reason for Visit: Hypertensive urgency History of Present Illness The patient is a 69-year-old male with past medical history of CHF, DM, hyperlipidemia, and hypertension who presented to [facility] ED with complaint of shortness of breaths. Patient reports symptoms progressively get worse with weakness, difficulty breathing with hypoxia, bilateral rales, getting worse that EMS were called. When EMS arrived on the scene, patient's blood pressure was 220/103 and was given breathing treatment en route to our facility ED. Patient reports on being non-compliant with all his prescribed medications for the past 4-5 months. Patient was seen and evaluated in the ED, laboratory data shows WBC 6.0 hemoglobin 9.8, hematocrit 29.0, platelets 196, sodium 142, potassium 5.3, BUN 54, creatinine 3.76, glucose 101, troponin 29, BNP 160.51, blood pressure 200/85, heart rate 55, temperature 97.4 F O2 saturation 98% on oxygen. Chest x-ray revealing bilateral interstitial and airspace opacity which may reflect edema or pneumonia. Please see medication orders section in the computer. On my assessment, patient denies chest pain, no headache, no dizziness, no diaphoresis, currently on oxygen, no nausea, no vomiting, no fever, no chills. Patient was admitted for further evaluation and medical management. Past Medical History CHF, DM, High Lipids, HTN Past Surgical History Denies all surgeries Family History Reviewed, noncontributory to the management of this case. Past Social History The patient lives at home, denies smoking, alcohol or illicit drugs abuse. Review of Systems Constitutional: No: Fever, Chills, Sweats, Weakness, Malaise, Other Eyes: No: Pain, Vision change, Conjunctivae inflammation, Eyelid inflammation, Other, Redness ENT: No: Ear pain, Ear discharge, Nose pain, Nose discharge, Nose congestion, Mouth pain, Mouth swelling, Throat pain, Throat swelling, Other Respiratory: Shortness of breath, SOB with excertion; No: Cough, Dry, Wheezing, Hemoptysis, Pleuritic Pain, Sputum, Wheezing, Other Cardiovascular: No: Chest Pain, Palpitations, Orthopnea, Paroxysmal Noc. Dyspnea, Edema, Lt Headedness, Other Gastrointestinal: No: Nausea, Vomiting, Abdominal Pain, Diarrhea, Constipation, Melena, Hematochezia, Other Genitourinary: No Dysuria, No Frequency, No Incontinence, No Hematuria, No Retention, No Other Musculoskeletal: No: other, neck pain, shoulder pain, arm pain, back pain, hand pain, leg pain, foot pain Skin: No: Rash, Lesions, Jaundice, Bruising, Other Neurological: No: Weakness, Numbness, Incoordination, Change in speech, Confusion, Seizures, Other Allergies: Coded Allergies: NO KNOWN ALLERGIES (Unverified , 05/07/18) Medications Current Medications Medications Dose Ordered Sig/Scott Route Start Time Stop Time Status Last Admin Dose Admin Aspirin 81 mg DAILY PO 08/07/24 10:00 Amlodipine Besylate 5 mg DAILY PO 08/07/24 10:00 Furosemide 40 mg DAILY IV 08/07/24 10:00 Doxycycline Hyclate 250 ml @ 125 mls/hr Q12H IV 08/06/24 14:30 08/06/24 15:03 125 MLS/HR Clonidine HCl 0.1 mg Q4HP PRN PO 08/06/24 14:30 08/06/24 14:54 0.1 MG Atorvastatin Calcium 10 mg HS PO 08/06/24 22:00 Diagnostic Test (Pha) 1 strip ACHS 08/06/24 17:00 Insulin Human Regular ACHS SC 08/06/24 17:00 Dextrose 50 ml UD PRN IV 08/06/24 14:30 Sodium Chloride 10 ml Q8HR IV 08/06/24 22:00 Acetaminophen/ Hydrocodone Bitart 1 tab Q4HP PRN PO 08/06/24 14:30 Ondansetron HCl 4 mg Q4HP PRN IV 08/06/24 14:30 Docusate Sodium 100 mg BIDPRN PRN PO 08/06/24 14:30 Acetaminophen 650 mg Q6HP PRN PO 08/06/24 14:30 Exam Vital Signs Vital Signs Date Time Temp Pulse Resp B/P (MAP) Pulse Ox O2 Delivery O2 Flow Rate FiO2 08/06/24 14:54 204/93 08/06/24 14:33 59 18 99 08/06/24 13:01 97.4 97.4 08/06/24 10:30 Room Air* 0 21 General Appearance: Alert, Oriented X3, Cooperative, No acute distress HEENT: Atraumatic, PERRLA, EOMI, Mucous membr. moist/pink Respiratory: Normal air movement, Other (Diminished breath sounds) Cardiovascular: Regular rate, Normal S1, Normal S2, No murmurs Abdominal: Normal bowel sounds, Soft, No tenderness, No hepatospenomegaly, No masses Extremities: No clubbing, No cyanosis, No edema, Normal pulses, No tenderness/swelling Skin: No rashes, No breakdown, No significant lesion Neuro: Normal speech, Normal tone, Sensation intact, Cranial nerves 3-12 NL, Reflexes 2+, Other (Generalized weakness) Psych/Mental Status: Mental status NL, Mood NL Labs/Xrays Labs Test 08/06/24 04:00 Range/Units White Blood Count 6.0 4.4-10.8 10^3/uL Red Blood Count 3.09 L 4.5-5.90 10^6/uL Hemoglobin 9.8 L 13.5-17.5 g/dL Hematocrit 29.0 L 41.0-53.0 % Mean Corpuscular Volume 93.8 80.0-100.0 fL Mean Corpuscular Hemoglobin 31.6 28.0-32.0 pg Mean Corpuscular Hemoglobin Concent 33.7 32.0-36.0 g/dL Red Cell Distribution Width 14.8 H 11.8-14.3 % Platelet Count 196 140-450 10^3/uL Mean Platelet Volume 8.6 6.9-10.8 fL Neutrophils (%) (Auto) 65.6 37.0-80.0 % Lymphocytes (%) (Auto) 21.4 10.0-50.0 % Monocytes (%) (Auto) 7.0 0.0-12.0 % Eosinophils (%) (Auto) 5.2 0.0-7.0 % Basophils (%) (Auto) 0.8 0.0-2.0 % Neutrophils # (Auto) 4.0 1.6-8.6 10 ^3/uL Lymphocytes # (Auto) 1.3 0.4-5.4 10 ^3/uL Monocytes # (Auto) 0.4 0-1.3 10 ^3/uL Eosinophils # (Auto) 0.3 0-0.8 10 ^3/uL Basophils # (Auto) 0 0-0.2 10 ^3/uL Nucleated Red Blood Cells 0.0 % Sodium Level 142 136-145 mmol/L Potassium Level 5.3 H 3.5-5.1 mmol/L Chloride Level 115 H 98-107 mmol/L Carbon Dioxide Level 18 L 20-31 mmol/L Anion Gap 9 5-15 Blood Urea Nitrogen 54 H 9-23 mg/dL Creatinine 3.76 H 0.700-1.30 mg/dL Glomerular Filtration Rate Calc 17 >90 mL/min BUN/Creatinine Ratio 14.4 10.0-20.0 Serum Glucose 101 74-106 mg/dL Calcium Level 8.7 8.7-10.4 mg/dL Troponin I High Sensitivity 29 </=54 ng/L B-Type Natriuretic Peptide 160.51 0-100 pg/mL PATIENT: HILTON COLEMAN AACCT: [id number] UNIT: [id number] : 12/08/1954 LOC: ER ROOM / BED: / AGE / SEX: 69 / M ADM STATUS: REG ER SERVICE [id number] ORDERING PHYSICIAN: LADONNA NORRIS MD PROCEDURE(s): CXRP - CHEST PORTABLE REASON: sob ORDER NUMBER(s): [id number], ACCESSION NUMBER(s): [id number] CHEST RADIOGRAPH Indication:sob Technique: Single frontal view of the chest was obtained Comparison: XY CHEST PORTABLE on DOS: 01/03/24 FINDINGS: Lines and Tubes: None Lungs: Diffuse bilateral airspace and interstitial opacities. Pleura: No effusion. No pneumothorax. Cardiomediastinal contours: Unremarkable Bones: No acute osseous abnormality. IMPRESSION: 1. Bilateral interstitial and airspace opacities which may reflect edema or pneumonia. Assessment/Plan Assessment/Plan Congestive heart failure Acute on chronic diastolic heart failure Hypertensive urgency Acute renal failure Pneumonia, unspecified organism Plan 1. Admit to telemetry unit 2. Breathing treatment 3. Pain control management 4. IV antibiotic management 5. Management of fluids and electrolytes 6. Consultation for Nephrology/hospitalist 7. Diagnostic test chest x-ray 8. DVT prophylaxis on aspirin 9. Repeat labs CBC, CMP in a.m. 10. Home medication reviewed and reconciled 11. Continue with current medical management 12. Treatment plan discussed with patient and RN. Patient verbalized understanding. Plan discussed with: Patient, Other (RN) My Orders Orders - DESTIN PERALTA DNP Procedure Category Date Status Time Aspirin Tablet PHA 08/07/24 In Process 10:00 Amlodipine Tablet PHA 08/07/24 In Process (Norvasc Tablet) 10:00 Furosemide Injection PHA 08/07/24 In Process (Lasix Injection) 10:00 Doxycycline PHA 08/06/24 In Process 100mg/250ml 14:30 Clonidine Hcl Tablet PHA 08/06/24 In Process (Catapres Tablet) 14:30 *Dr. [facility] CONS 08/06/24 Transmitted -[place] 14:18 Type And Screen BBK 08/06/24 Logged 14:18 Atorvastatin (Lipitor) PHA 08/06/24 In Process 22:00 Glucose Blood PHA 08/06/24 In Process (Accu-Chek Comfort 17:00 Insulin R (Human) PHA 08/06/24 In Process (Insulin R) 17:00 Dextrose 50% Syringe PHA 08/06/24 In Process 14:30 Allergies LIZ 08/06/24 In Process 14:18 Code Status CODE 08/06/24 Transmitted 14:18 Sodium Chloride Lock PHA 08/06/24 In Process (Saline Lock Ns) 22:00 Oxygen Per Hour RT 08/06/24 Transmitted 14:18 Hydrocodone-Acet PHA 08/06/24 In Process 5/325mg Tab ([place] 14:30 Ondansetron Hcl PHA 08/06/24 In Process (Zofran) 14:30 Docusate Sodium PHA 08/06/24 In Process Capsule (Colace 14:30 Complete Blood Count LAB 08/07/24 Verified 04:00 Comprehensive LAB 08/07/24 Verified Metabolic Panel 04:00 Echo 2d Mode Cardiac US 08/06/24 Logged DOP 14:18 Condition: Serious LIZ 08/06/24 In Process 14:18 Acetaminophen Tablet PHA 08/06/24 In Process (Tylenol Tablet) 14:30 Bedrest With Bathroom LIZ 08/06/24 In Process Privileg 14:18 Sequential LIZ 08/06/24 In Process Compression Device Consistent DIET 08/06/24 Transmitted Carb(Ccho)Diabetes Dinner Problem List: (1) Congestive heart failure (2) Pneumonia, unspecified organism (3) Hypertensive urgency (4) Acute renal failure (5) Acute on chronic diastolic heart failure Date of Service: Aug 06, 2024 Billing Provider: DESTIN PERALTA DNP Common Visit Codes: 86498-[id number] INP/OBS CARE (HIGH) DESTIN PERALTA DNP Aug 06, 2024 15:32
[2024-08-06] MEDS ORDERED: MORPHINE SULFATE INJ 2 MG/ml SYRG IV PRN (15:45)
[2024-08-06] MEDS ORDERED: NITROGLYCERIN 0.4 MG SL TAB SL PRN (15:45)
[2024-08-06] MEDS: InsuLIN REG 1unit/0.01ml Soln (100units/ml) SC SCH (17:00)
[2024-08-06] MEDS: hydrALAZINE HCL 20 MG/ML VL IV PRN (17:14)
[2024-08-06] MEDS: ACCU-CHEK COMFORT CURVE STRIP VI SCH (17:27)
[2024-08-06] MEDS: ATORVASTATIN 20 MG TAB PO SCH (21:35)
[2024-08-06] MEDS: SODIUM CHLOR 0.9% PF (SALINE LOCK) 10ML VIAL/SYR IV SCH (21:35)
[2024-08-07] VITALS (9 sets, daily range): BP systolic 119–203; BP diastolic 61–89; PULSE 56–82; RESP 17–18; TEMP 97.3–98.2; O2SAT 98–99
[2024-08-07 07:03] LABS: Basophils # (auto) 0 10 ^3/uL (0-0.2); Basophils % (auto) 0.7 % (0.0-2.0); Eosinophils # (auto) 0.3 10 ^3/uL (0-0.8); Eosinophils % (auto) 5.3 % (0.0-7.0); Hematocrit 25.2 % (41.0-53.0); Hemoglobin 8.7 g/dL (13.5-17.5); Lymphocytes # (auto) 0.8 10 ^3/uL (0.4-5.4); Lymphocytes % (auto) 17.3 % (10.0-50.0); Mean Corpuscular Hemoglobin 31.5 pg (28.0-32.0); Mean Corpuscular Hgb Conc. 34.6 g/dL (32.0-36.0); Monocytes # (auto) 0.4 10 ^3/uL (0-1.3); Neutrophils # (auto) 3.3 10 ^3/uL (1.6-8.6); Neutrophils % (auto) 68.7 % (37.0-80.0); Platelet Count (auto) 167 10^3/uL (140-450); Red Blood Cells 2.77 10^6/uL (4.5-5.90); Red Cell Distribution Width 13.9 % (11.8-14.3); White Blood Cell 4.7 10^3/uL (4.4-10.8)
[2024-08-07 07:17] LABS: Alanine Aminotransferase 10 U/L (7-40); Albumin 3.3 g/dL (3.2-4.8); Alkaline Phosphatase 77 U/L (46-116); Anion Gap 9 (5-15); Aspartate Aminotransferase 14 U/L (13-40); BUN/Creatinine Ratio 13.7 (10.0-20.0); Bilirubin, Total 0.5 mg/dL (0.2-1.0); Blood Urea Nitrogen 51 mg/dL (9-23); Calcium 9.1 mg/dL (8.7-10.4); Carbon Dioxide 20 mmol/L (20-31); Chloride 112 mmol/L (98-107); Glucose 102 mg/dL (74-106); Potassium 4.9 mmol/L (3.5-5.1); Sodium 141 mmol/L (136-145); Total Protein 5.7 g/dL (5.7-8.2)
[2024-08-07] MEDS: ASPirin 81 mg TAB PO SCH (09:28)
[2024-08-07] MEDS: amLODIPine BESYLATE 5 MG TAB PO SCH (09:28)
[2024-08-07] MEDS: FUROSEMIDE 40 MG/4 ML VIAL IV SCH ×2 (09:28→17:58)
[2024-08-07 10:32] LABS: Magnesium 2.2 mg/dL (1.6-2.6)
[2024-08-07 10:34] LABS: Phosphorus 5.1 mg/dL (2.4-5.1)
--- NOTE | 2024-08-07 12:31 | DVH ---
INDICATION: ana TECHNIQUE: Multiple real-time sonographic images of the kidneys and bladder were obtained. COMPARISON: US KIDNEY on DOS: 12/18/23 FINDINGS: RIGHT kidney measures 11.0 cm in length. No hydronephrosis. LEFT kidney measures 10.8 cm in length. No hydronephrosis. No large intraluminal masses are seen in the bladder. IMPRESSION: 1. Unremarkable examination.
[2024-08-07] MEDS: NIFEdipine ER 30 MG TAB PO SCH (12:47)
--- NOTE | 2024-08-07 12:56 | DVHSR ---
APPROVED REPORT EXAM: Two-dimensional and M-mode echocardiogram with Doppler and color Doppler. Blood Pressure: 176/82 mmHg INDICATION Heart Failure RISK FACTORS Height: 5'6", Weight: 180 DIMENSIONS LVDd4.7 (3.8-5.7cm)LA (2D)4.4 (1.9-4.0cm)Aortic Root3.5 (2.0-3.7cm) LVDs3.1 (2.5-4.0cm)LA (MM) (1.9-4.0cm)Aortic Cusp Exc1.7 (1.5-2.0cm) EF (%) 62.0 (55-70%)Rt. Atrium5.0 (1.9-4.0cm)Asc. Aorta3.5 cm IVSd1.5 (0.7-1.1cm)RV (D)4.9 (1.8-2.4cm) PWd1.2 (0.7-1.1cm) Mitral Valve MitralMitral Stenosis E wave0.70m/sMV Mean GR.mmHg A wave0.81m/sMV Peak GR.mmHg E/A ratio0.92D MVAcm2 DECEL [id number] 1/2 Timems Aortic Valve Aortic ValveAortic Stenosis V10.86m/Wandy Mean GR.4mmHg V21.47m/Wandy Peak GR.9mmHg LVOT Diameter2.3 (1.8-2.4cm)Doppler AVA2.43cm2 Pulmonic Valve V20.75m/s Tricuspid Valve TR Velocity2.26m/s [id number] Conclusion Normal left ventricular size and dimension. Normal left ventricular systolic function estimated ejec tion fraction 55%. There is a grade 1 diastolic dysfunction. Normal right ventricular size and dimension. Normal right ventricular systolic function. Normal biatrial size and dimension. Normal aortic valve structure and function normal mitral valve function. Normal tricuspid valve structure and function. The pulmonary valve is grossly normal. No pericardial effusion.
--- NOTE | 2024-08-07 13:13 | DVHPN2 ---
Subjective Patient continues to report having/shortness of breath Reviewed: Care Plan, H&P, Labs Changes from previous H/P or p: No Changes General: Per HPI Eyes: No Pain, No Vision change, No Conjunctivae inflammation, No Eyelid inflammation, No Other, No Redness ENT: No Ear pain, No Ear discharge, No Nose pain, No Nose discharge, No Nose congestion, No Mouth pain, No Mouth swelling, No Throat pain, No Throat swelling, No Other Cardiovascular: No Chest Pain, No Palpitations, No Orthopnea, No Paroxysmal Noc. Dyspnea, No Edema, No Lt Headedness, No Other Respiratory: No Cough, No Dry; Shortness of breath, SOB with excertion; No Wheezing, No Hemoptysis, No Pleuritic Pain, No Sputum, No Other Gastrointestinal: No Nausea, No Vomiting, No Abdominal Pain, No Diarrhea, No Constipation, No Melena, No Hematochezia, No Other Genitourinary: No Dysuria, No Frequency, No Incontinence, No Hematuria, No Retention, No Other Musculoskeletal: No other, No neck pain, No shoulder pain, No arm pain, No back pain, No hand pain, No leg pain, No foot pain Skin: No Rash, No Lesions, No Jaundice, No Bruising, No Other Objective Vitals Vital Signs Date Time Temp Pulse Resp B/P (MAP) Pulse Ox O2 Delivery O2 Flow Rate FiO2 08/07/24 12:49 97.3 65 17 169/83 (111) 99 97.3 08/07/24 08:00 Room Air* 0 21 Intake/Output Intake and Output 08/07/24 07:00 Intake Total 425 ml Balance 425 ml Intake Oral 325 ml IV Total 100 ml # Voids 1 General Appearance: Alert, Oriented X3, Cooperative, mild distress HEENT: Atraumatic, PERRLA Lungs: Clear to auscultation, Normal air movement Cardiovascular: Normal S1, Normal S2 Abdomen: Normal bowel sounds, Soft Genitourinary: No Apparent Abnormalities Musculoskeletal: Normal sensory function, Normal motor function Extremities: No clubbing, No cyanosis Neuro: Normal gait, Normal speech Psych/Mental Status: Mental status NL, Mood NL Medications Current Medications Medications Dose Ordered Sig/Scott Route Start Time Stop Time Status Last Admin Dose Admin Aspirin 81 mg DAILY PO 08/07/24 10:00 08/07/24 09:28 81 MG Furosemide 40 mg DAILY IV 08/07/24 10:00 08/07/24 09:28 40 MG Doxycycline Hyclate 250 ml @ 125 mls/hr Q12H IV 08/06/24 14:30 08/07/24 02:30 125 MLS/HR Clonidine HCl 0.1 mg Q4HP PRN PO 08/06/24 14:30 08/06/24 20:09 0.1 MG Atorvastatin Calcium 10 mg HS PO 08/06/24 22:00 08/06/24 21:35 10 MG Diagnostic Test (Pha) 1 strip ACHS 08/06/24 17:00 08/07/24 11:22 1 STRIP Insulin Human Regular ACHS SC 08/06/24 17:00 Dextrose 50 ml UD PRN IV 08/06/24 14:30 Sodium Chloride 10 ml Q8HR IV 08/06/24 22:00 08/07/24 05:10 10 ML Acetaminophen/ Hydrocodone Bitart 1 tab Q4HP PRN PO 08/06/24 14:30 Ondansetron HCl 4 mg Q4HP PRN IV 08/06/24 14:30 Docusate Sodium 100 mg BIDPRN PRN PO 08/06/24 14:30 Acetaminophen 650 mg Q6HP PRN PO 08/06/24 14:30 Nitroglycerin 0.4 mg Q5MINP PRN SL 08/06/24 15:45 Morphine Sulfate 2 mg Q30M PRN IV 08/06/24 15:45 Hydralazine HCl 10 mg Q6HP PRN IV 08/06/24 17:00 08/07/24 11:12 10 MG Nifedipine 60 mg DAILY PO 08/07/24 12:15 08/07/24 12:47 60 MG Laboratory Results Laboratory Tests 08/07/24 05:35 Chemistry Test 08/07/24 05:35 Albumin 3.3 g/dL (3.2-4.8) Calcium Level 9.1 mg/dL (8.7-10.4) Magnesium Level 2.2 mg/dL (1.6-2.6) Phosphorus Level 5.1 mg/dL (2.4-5.1) Total Protein 5.7 g/dL (5.7-8.2) LFT Test 08/07/24 05:35 Alanine Aminotransferase (ALT) 10 U/L (7-40) Alkaline Phosphatase 77 U/L (46-116) Aspartate Amino Transferase (AST) 14 U/L (13-40) Total Bilirubin 0.5 mg/dL (0.2-1.0) HgA1c, TSH Test 08/07/24 05:35 Hemoglobin A1c 5.1 % A1C (<5.7) Labs and/or images reviewed: Labs reviewed by me, Image(s) reviewed by me Assessment/Plan Assessment/Plan Impression: -hypertensive crisis -pulmonary vascular congestion -chronic kidney disease, probably stage IIIB/four, advanced from previous admission -acute kidney injury, probable vasomotor nephropathy -diabetes mellitus, controlled -medication noncompliance Plan: -nephrology consultation -continue IV diuresis -hold nephrotoxic medications, CHARIS inhibitor -antihypertensives: Nifedipine, hydralazine -renal ultrasound: Reviewed -repeat labs chest x-ray in Total time spent with patient discussing and formulating plan of care: 35 minutes. This medical document was created using an electronic medical record system with [employer] dictation system. Although this document has been carefully reviewed, there may still be some phonetic and typographical errors. These areas are purely typographical due to imperfections of the software programs, and do not reflect any compromise in the patient's medical care. Plan discussed with: Patient, Other (RN) My Orders Orders - GLORIA LEYVA NP Procedure Category Date Status Time Nifedipine Er PHA 08/07/24 In Process (Procardia Xl 12:15 Basic Metabolic Panel LAB 08/08/24 Verified 04:00 Complete Blood Count LAB 08/08/24 Verified 04:00 Date of Service: Aug 07, 2024 Billing Provider: GLORIA LEYVA NP Common Visit Codes: [id number] INP/OBS CARE(HIGH) GLORIA LEYVA NP Aug 07, 2024 13:13
[2024-08-07] MEDS: hydrALAZINE HCL 25 MG TAB PO SCH (14:04)
--- NOTE | 2024-08-07 15:17 | DVHCONRES ---
Date Seen: Aug 07, 2024 Resident Creating Document: DEUCE RAYMOND RESIDENT Referring Physician Marge DICKINSON Reason for Consultation Acute renal failure History of Present Illness Patient is 69-year-old male with past medical history of hypertension, diabetes mellitus type 2, diastolic heart failure, obesity, CKD due to diabetes mellitus and uncontrolled hypertension presented to hospital with a chief complaint of worsening shortness of breath. As per patient shortness of breath is worsening for the past few days that prompted visit to emergency department. As per patient he is not compliant with medication not taking medication for hypertension and diabetes. However he has drinking 10 hyaline herbal tea for diuresis which he taking for last six months. Apart from patient is denying any other symptoms at this point including no chest pain, no generalized weakness, abdominal pain, urinary symptoms, no fever, no chills. Nephrology consultation was done for acute renal failure. No other complaints. Patient has previous hospital visits on 01/07/2024. During that evaluation patient was underwent kidney biopsy for proteinuria. Kidney biopsy results showed glomerulosclerosis and arterial sclerosis testing uncontrolled diabetes and hypertension. However patient did not follow with contract negotiator in outpatient setting. Past Medical History Hypertension, diastolic CHF, diabetes mellitus, obesity, CKD Past Surgical History None Family History: Diabetes during Diabetes mellitus G8 MOTHER G8 FATHER Family History None Social History Former smoker, 20 pack years. Tried multiple drugs during teenage. Allergies: Coded Allergies: NO KNOWN ALLERGIES (Unverified , 05/07/18) Home Meds Active Scripts Furosemide (Lasix) 40 Mg Tab, 40 MG PO BID for 30 Days, #60 TAB 3 Refills Prov:UMA GARNICA MD 12/23/23 Atorvastatin Calcium (ATORVASTATIN CALCIUM) 20 Mg Tab, 20 MG PO HS for 30 Days, #30 TAB 3 Refills Prov:UMA GARNICA MD 12/23/23 Metoprolol Tartrate (LOPRESSOR TABLET) 50 Mg Tb, 50 MG PO BID for 30 Days, #60 TAB 3 Refills Prov:UMA GARNICA MD 12/23/23 Reported Medications Potassium Chloride (Potassium Chloride ER) 10 Meq Tab, 1 TAB PO DAILY for 90 Days, #90 08/07/24 Amlodipine Besylate (Amlodipine Besylate) 10 Mg Tab, 1 TAB PO DAILY for 90 Days, #90 08/07/24 Ferrous Sulfate (Ferosul) 325 Mg Tab, 1 TAB PO DAILY 12/20/23 Metformin Hydrochloride (Metformin Hcl) 500 Mg Tab, 1 TAB PO DAILY 12/20/23 Lisinopril (Lisinopril) 10 Mg Tab, 1 TAB PO DAILY 12/20/23 Current Medications Current Medications Medications (Trade) Dose Ordered Sig/Scott Route PRN Reason Start Time Stop Time Status Last Admin Aspirin 81 mg DAILY PO 08/07/24 10:00 08/07/24 09:28 Amlodipine Besylate (Norvasc Tablet) 5 mg DAILY PO 08/07/24 10:00 08/07/24 12:15 DC 08/07/24 09:28 Furosemide (Lasix Injection) 40 mg DAILY IV 08/07/24 10:00 08/07/24 14:57 DC 08/07/24 09:28 Atorvastatin Calcium (Lipitor) 10 mg HS PO 08/06/24 22:00 08/06/24 21:35 Diagnostic Test (Pha) (Accu-Chek Comfort Curve T) 1 strip ACHS 08/06/24 17:00 08/07/24 11:22 Insulin Human Regular (InsuLIN R) ACHS SC 08/06/24 17:00 Sodium Chloride (Saline Lock Ns) 10 ml Q8HR IV 08/06/24 22:00 08/07/24 14:05 Nitroglycerin (Ntrostat Sublingual) 0.4 mg Q5MINP PRN SL FOR CHEST PAIN 08/06/24 15:45 Morphine Sulfate 2 mg Q30M PRN IV FOR CHEST PAIN 08/06/24 15:45 Hydralazine HCl (Apresoline Injection) 10 mg Q6HP PRN IV SBP>150 08/06/24 17:00 08/07/24 11:12 Nifedipine (Procardia Xl (Time-Release)) 60 mg DAILY PO 08/07/24 12:15 08/07/24 12:47 Hydralazine HCl (Apresoline Tablet) 25 mg Q8HR PO 08/07/24 14:00 08/07/24 14:04 Furosemide (Lasix Injection) 40 mg BID IV 08/07/24 22:00 UNV Review of Systems Eyes: No Pain, No Vision change, No Conjunctivae inflammation, No Eyelid inflammation, No Other, No Redness ENT: No Ear pain, No Ear discharge, No Nose pain, No Nose discharge, No Nose co ngestion, No Mouth pain, No Mouth swelling, No Throat pain, No Throat swelling, No Other Cardiovascular: No Chest Pain, No Palpitations, No Orthopnea, No Paroxysmal Noc. Dyspnea, No Edema, No Lt Headedness, No Other Respiratory: No Cough, No Dry,Shortness of breath, No SOB with excertion, No Wheezing, No Hemoptysis, No Pleuritic Pain, No Sputum, No Other Gastrointestinal: No Nausea, No Vomiting, No Abdominal Pain, No Diarrhea, No Constipation, No Melena, No Hematochezia, No Other Genitourinary: No Dysuria, No Frequency, No Incontinence, No Hematuria, No Retention, No Other Musculoskeletal: No other, No neck pain, No shoulder pain, No arm pain, No back pain, No hand pain, No leg pain, No foot pain Skin: No Rash, No Lesions, No Jaundice, No Bruising, No Other Vital Signs Vital Signs Date Time Temp Pulse Resp B/P (MAP) Pulse Ox O2 Delivery O2 Flow Rate FiO2 08/07/24 14:04 174/84 08/07/24 12:49 97.3 65 17 99 97.3 08/07/24 08:00 Room Air* 0 21 Physical Exam General Appearance: Cooperative. Well developed. Well nourished. NAD Head Exam: Normal inspection Neck Exam: Normal inspection. Non-tender. Normal alignment Pulmonary/Respiratory: Chest non-tender. Bilateral basal crackles. Cardiovascular/Chest: Regular rate and rhythm. No murmurs. No JVD. Peripheral Pulses: 2+ Radial (R). 2+ Radial (L). 2+ Pedal (R). 2+ Pedal (L) Abdominal Exam: Normal bowel sounds. Soft. Nontender. No hepatospenomegaly. No masses Ankle Exam: Negative ankle edema Lower extremities: Negative lower extremity edema Neuro/Mental Status: A&O x4. Coherent Labs/Diagnostic Data Labs Test 08/07/24 11:21 08/07/24 05:35 08/06/24 04:00 Range/Units POC Glucose 127 H 70-106 mg/dl White Blood Count 4.7 4.4-10.8 10^3/uL Red Blood Count 2.77 L 4.5-5.90 10^6/uL Hemoglobin 8.7 L 13.5-17.5 g/dL Hematocrit 25.2 #L 41.0-53.0 % Mean Corpuscular Volume 91.0 80.0-100.0 fL Mean Corpuscular Hemoglobin 31.5 28.0-32.0 pg Mean Corpuscular Hemoglobin Concent 34.6 32.0-36.0 g/dL Red Cell Distribution Width 13.9 11.8-14.3 % Platelet Count 167 140-450 10^3/uL Mean Platelet Volume 8.5 6.9-10.8 fL Neutrophils (%) (Auto) 68.7 37.0-80.0 % Lymphocytes (%) (Auto) 17.3 10.0-50.0 % Monocytes (%) (Auto) 8.0 0.0-12.0 % Eosinophils (%) (Auto) 5.3 0.0-7.0 % Basophils (%) (Auto) 0.7 0.0-2.0 % Neutrophils # (Auto) 3.3 1.6-8.6 10 ^3/uL Lymphocytes # (Auto) 0.8 0.4-5.4 10 ^3/uL Monocytes # (Auto) 0.4 0-1.3 10 ^3/uL Eosinophils # (Auto) 0.3 0-0.8 10 ^3/uL Basophils # (Auto) 0 0-0.2 10 ^3/uL Nucleated Red Blood Cells 0.0 % Sodium Level 141 136-145 mmol/L Potassium Level 4.9 3.5-5.1 mmol/L Chloride Level 112 H 98-107 mmol/L Carbon Dioxide Level 20 20-31 mmol/L Anion Gap 9 5-15 Blood Urea Nitrogen 51 H 9-23 mg/dL Creatinine 3.71 H 0.700-1.30 mg/dL Glomerular Filtration Rate Calc 17 >90 mL/min BUN/Creatinine Ratio 13.7 10.0-20.0 Serum Glucose 102 74-106 mg/dL Hemoglobin A1c 5.1 <5.7 % A1C Calcium Level 9.1 8.7-10.4 mg/dL Phosphorus Level 5.1 2.4-5.1 mg/dL Magnesium Level 2.2 1.6-2.6 mg/dL Total Bilirubin 0.5 0.2-1.0 mg/dL Aspartate Amino Transferase (AST) 14 13-40 U/L Alanine Aminotransferase (ALT) 10 7-40 U/L Alkaline Phosphatase 77 46-116 U/L Total Protein 5.7 5.7-8.2 g/dL Albumin 3.3 3.2-4.8 g/dL Troponin I High Sensitivity 29 </=54 ng/L B-Type Natriuretic Peptide 160.51 0-100 pg/mL Assessment Hypertensive urgency CKD stage 4 Biopsy-proven diabetic and hypertensive nephropathy Diabetes mellitus type 2 Medication noncompliance Use of herbal supplements Pulmonary vascular congestion ? Acute on chronic diastolic heart failure Plan/recommendation3 Dr Silver -IV Lasix 40 mg b.i.d for volume overload -hypertension control: Agreeing with nifedipine 60 mg daily, recommend hydralazine 50 mg p.o. t.i.d. can increase nifedipine to 90 mg tomorrow a.m. if It is not under control. -extensive counseled on medication compliance, advised to not take any non- prescribed herbal supplement given possible worsening kidney function -kidney ultrasound on 08/07/2024: unremarkable -kidney biopsy on 12/22/2023: Glomerular sclerosis in arterial sclerosis suggesting of diabetic and hypertensive nephropathy -patient advised to follow up in outpatient setting nephrology for continuous kidney function monitoring. -recommend 2 g sodium diet -strict I&O -avoid nephrotoxic drugs -ordered urinalysis, urine sodium, serum protein/creatinine ratio, urine protein, urine creatinine, UDS, magnesium, phosphorus. Time spent greater than 78 minutes, majority of time spent interacting [id number] with patient and family. Thank you for consultation. Addendum Patient seen and examined, plan discussed with resident. Agree with above, we will follow closely Patient also noncompliant with his BP medications he does not take his meds . stop Supplements Plan discussed with: Patient, Other (RN) DEUCE RAYMOND RESIDENT Aug 07, 2024 15:17 CHIO SILVER MD Aug 07, 2024 18:27
[2024-08-07 16:53] LABS: % Iron Saturation 17.6 % (20-55)
[2024-08-08 05:00] VITALS: BP 117/63; PULSE 63; RESP 17; TEMP 98.3; O2SAT 97
[2024-08-08 07:23] LABS: Basophils # (auto) 0 10 ^3/uL (0-0.2); Basophils % (auto) 0.7 % (0.0-2.0); Eosinophils # (auto) 0.2 10 ^3/uL (0-0.8); Eosinophils % (auto) 3.1 % (0.0-7.0); Hematocrit 26.1 % (41.0-53.0); Lymphocytes # (auto) 1.4 10 ^3/uL (0.4-5.4); Lymphocytes % (auto) 23.3 % (10.0-50.0); Mean Corpuscular Hemoglobin 31.3 pg (28.0-32.0); Mean Corpuscular Hgb Conc. 34.5 g/dL (32.0-36.0); Mean Corpuscular Volume 90.7 fL (80.0-100.0); Monocytes # (auto) 0.4 10 ^3/uL (0-1.3); Neutrophils # (auto) 3.9 10 ^3/uL (1.6-8.6); Neutrophils % (auto) 65.9 % (37.0-80.0); Nucleated Red Blood Cells % 0.1 %; Platelet Count (auto) 188 10^3/uL (140-450); Red Blood Cells 2.88 10^6/uL (4.5-5.90); Red Cell Distribution Width 14.4 % (11.8-14.3)
[2024-08-08 07:28] LABS: Chloride 111 mmol/L (98-107); Potassium 4.5 mmol/L (3.5-5.1); Sodium 141 mmol/L (136-145)
[2024-08-08 07:29] LABS: Anion Gap 9 (5-15); Calcium 9.2 mg/dL (8.7-10.4); Carbon Dioxide 21 mmol/L (20-31)
[2024-08-08 07:34] LABS: BUN/Creatinine Ratio 13.8 (10.0-20.0); Blood Urea Nitrogen 55 mg/dL (9-23); Glucose 97 mg/dL (74-106)
[2024-08-08 08:00] VITALS: PULSE 100; PULSE 61; RESP 18; O2SAT 97
[2024-08-08 09:00] VITALS: BP 119/49; PULSE 100; RESP 18; TEMP 97.8; O2SAT 97
--- NOTE | 2024-08-08 11:29 | DVHPN2 ---
Progress Note Date Seen: Aug 08, 2024 Resident Creating Document: DEUCE RAYMOND RESIDENT Medical Necessity Reason Pt with a Central, PICC or Fol: No Subjective Review of Systems History of Present Illness Patient is 69-year-old male with past medical history of hypertension, diabetes mellitus type 2, diastolic heart failure, obesity, CKD due to diabetes mellitus and uncontrolled hypertension presented to hospital with a chief complaint of worsening shortness of breath. As per patient shortness of breath is worsening for the past few days that prompted visit to emergency department. As per patient he is not compliant with medication not taking medication for hypertension and diabetes. However he has drinking 10 hyaline herbal tea for diuresis which he taking for last six months. Apart from patient is denying any other symptoms at this point including no chest pain, no generalized weakness, abdominal pain, urinary symptoms, no fever, no chills. Nephrology consultation was done for acute renal failure. No other complaints. Patient has previous hospital visits on 01/07/2024. During that evaluation patient was underwent kidney biopsy for proteinuria. Kidney biopsy results showed glomerulosclerosis and arterial sclerosis testing uncontrolled diabetes and hypertension. However patient did not follow with home school teacher in outpatient setting. Past Medical History Hypertension, diastolic CHF, diabetes mellitus, obesity, CKD Patient is seen and examined bedside. Patient's chest discomfort resolved early in the morning. Blood pressure is under control. No other complaints at this point. Objective vital signs Vital Sign Date Time Temp Pulse Resp B/P (MAP) Pulse Ox O2 Delivery O2 Flow Rate FiO2 08/08/24 10:00 119/49 08/08/24 09:00 97.8 100 18 97 97.8 08/07/24 20:00 Room Air* 0 21 Total Intake and Output 08/07/24 08/07/24 08/08/24 15:00 23:00 07:00 Intake Total 800 ml 325 ml Balance 800 ml 325 ml medications Current Medications Medications Dose Ordered Sig/Scott Route Start Time Stop Time Status Last Admin Dose Admin Aspirin 81 mg DAILY PO 08/07/24 10:00 08/08/24 09:59 81 MG Doxycycline Hyclate 250 ml @ 125 mls/hr Q12H IV 08/06/24 14:30 08/08/24 02:09 125 MLS/HR Clonidine HCl 0.1 mg Q4HP PRN PO 08/06/24 14:30 08/07/24 17:59 0.1 MG Atorvastatin Calcium 10 mg HS PO 08/06/24 22:00 08/07/24 21:16 10 MG Diagnostic Test (Pha) 1 strip ACHS 08/06/24 17:00 08/08/24 06:17 1 STRIP Insulin Human Regular ACHS SC 08/06/24 17:00 Dextrose 50 ml UD PRN IV 08/06/24 14:30 Sodium Chloride 10 ml Q8HR IV 08/06/24 22:00 08/08/24 06:17 10 ML Acetaminophen/ Hydrocodone Bitart 1 tab Q4HP PRN PO 08/06/24 14:30 Ondansetron HCl 4 mg Q4HP PRN IV 08/06/24 14:30 Docusate Sodium 100 mg BIDPRN PRN PO 08/06/24 14:30 Acetaminophen 650 mg Q6HP PRN PO 08/06/24 14:30 Nitroglycerin 0.4 mg Q5MINP PRN SL 08/06/24 15:45 Morphine Sulfate 2 mg Q30M PRN IV 08/06/24 15:45 Hydralazine HCl 10 mg Q6HP PRN IV 08/06/24 17:00 08/07/24 11:12 10 MG Nifedipine 60 mg DAILY PO 08/07/24 12:15 08/08/24 10:00 60 MG Hydralazine HCl 25 mg Q8HR PO 08/07/24 14:00 08/08/24 06:17 25 MG Furosemide 40 mg BIDD IV 08/07/24 18:00 08/08/24 06:17 40 MG Examination General Appearance: Cooperative. Well developed. Well nourished. NAD Head Exam: Normal inspection Neck Exam: Normal inspection. Non-tender. Normal alignment Pulmonary/Respiratory: Chest non-tender. Bilateral basal crackles. Cardiovascular/Chest: Regular rate and rhythm. No murmurs. No JVD. Peripheral Pulses: 2+ Radial (R). 2+ Radial (L). 2+ Pedal (R). 2+ Pedal (L) Abdominal Exam: Normal bowel sounds. Soft. Nontender. No hepatospenomegaly. No masses Ankle Exam: Negative ankle edema Lower extremities: Negative lower extremity edema Neuro/Mental Status: A&O x4. Coherent laboratory and microbiology Laboratory Tests 08/08/24 06:35 Test 08/08/24 06:35 Range/Units Serum Glucose 97 74-106 mg/dL Problem List/Assessment/Plan Problem List/Assessment/Plan Hypertensive urgency SHEREE on CKD stage 4 hemodynamic mediated etiology Biopsy-proven diabetic and hypertensive nephropathy Diabetes mellitus type 2 Medication noncompliance Use of herbal supplements Pulmonary vascular congestion ? Acute on chronic diastolic heart failure Plan/recommendation3 Dr Vazquez -IV Lasix 40 mg b.i.d for volume overload -hypertension control: Nifedipine and hydralazine. Blood pressure well- controlled since service learning coordinator -extensive counseled on medication compliance, advised to not take any non- prescribed herbal supplement given possible worsening kidney function -kidney ultrasound on 08/07/2024: unremarkable -kidney biopsy on 12/22/2023: Glomerular sclerosis in arterial sclerosis suggesting of diabetic and hypertensive nephropathy -patient advised to follow up in outpatient setting nephrology for continuous kidney function monitoring. -recommend 2 g sodium diet -strict I&O -avoid nephrotoxic drugs -ordered urinalysis, urine sodium, serum protein/creatinine ratio, urine protein, urine creatinine, UDS, magnesium, phosphorus. -avoid herbal supplement, likely cause of nephrotoxicity as well. -Patient also noncompliant with his BP medications he does not take his meds Addendum Patient seen and examined, plan discussed with resident. Agree with above, we will follow closely Patient still complains of shortness of breath today BP well controlled Continue diuretics blood pressure meds Plan discussed with: Patient, Other (RN) My Orders My Orders Orders - DEUCE RAYMOND Procedure Category Date Status Time Furosemide Injection PHA 08/07/24 In Process (Lasix Injection) 18:00 2 Gm Sodium Diet DIET 08/07/24 Transmitted Dinner DEUCE RAYMOND Aug 08, 2024 11:29 CHIO VAZQUEZ MD Aug 08, 2024 15:43
[2024-08-08 12:56] VITALS: BP 115/73; PULSE 65; RESP 18; TEMP 97.4; O2SAT 99
--- NOTE | 2024-08-08 14:59 | DVHDS2 ---
Discharge Summary Date of Admission Aug 06, 2024 at 15:31 Date of Discharge: Aug 08, 2024 Admitting Diagnosis Hypertensive crisis Labs/Diagnostic Data: Laboratory Results Test 08/08/24 13:17 08/08/24 06:35 08/07/24 05:35 08/06/24 04:00 POC Glucose 132 mg/dl (70-106) White Blood Count 6.0 10^3/uL (4.4-10.8) Red Blood Count 2.88 10^6/uL (4.5-5.90) Hemoglobin 9.0 g/dL (13.5-17.5) Hematocrit 26.1 % (41.0-53.0) Mean Corpuscular Volume 90.7 fL (80.0-100.0) Mean Corpuscular Hemoglobin 31.3 pg (28.0-32.0) Mean Corpuscular Hemoglobin Concent 34.5 g/dL (32.0-36.0) Red Cell Distribution Width 14.4 % (11.8-14.3) Platelet Count 188 10^3/uL (140-450) Mean Platelet Volume 8.3 fL (6.9-10.8) Neutrophils (%) (Auto) 65.9 % (37.0-80.0) Lymphocytes (%) (Auto) 23.3 % (10.0-50.0) Monocytes (%) (Auto) 7.0 % (0.0-12.0) Eosinophils (%) (Auto) 3.1 % (0.0-7.0) Basophils (%) (Auto) 0.7 % (0.0-2.0) Neutrophils # (Auto) 3.9 10 ^3/uL (1.6-8.6) Lymphocytes # (Auto) 1.4 10 ^3/uL (0.4-5.4) Monocytes # (Auto) 0.4 10 ^3/uL (0-1.3) Eosinophils # (Auto) 0.2 10 ^3/uL (0-0.8) Basophils # (Auto) 0 10 ^3/uL (0-0.2) Nucleated Red Blood Cells 0.1 % Sodium Level 141 mmol/L (136-145) Potassium Level 4.5 mmol/L (3.5-5.1) Chloride Level 111 mmol/L (98-107) Carbon Dioxide Level 21 mmol/L (20-31) Anion Gap 9 (5-15) Blood Urea Nitrogen 55 mg/dL (9-23) Creatinine 4.00 mg/dL (0.700-1.30) Glomerular Filtration Rate Calc 16 mL/min (>90) BUN/Creatinine Ratio 13.8 (10.0-20.0) Serum Glucose 97 mg/dL (74-106) Calcium Level 9.2 mg/dL (8.7-10.4) Hemoglobin A1c 5.1 % A1C (<5.7) Phosphorus Level 5.1 mg/dL (2.4-5.1) Magnesium Level 2.2 mg/dL (1.6-2.6) Iron Level 43 ug/dL (65-175) Total Iron Binding Capacity 244 ug/dL (250-425) Percent Iron Saturation 17.6 % (20-55) Total Bilirubin 0.5 mg/dL (0.2-1.0) Aspartate Amino Transferase (AST) 14 U/L (13-40) Alanine Aminotransferase (ALT) 10 U/L (7-40) Alkaline Phosphatase 77 U/L (46-116) Total Protein 5.7 g/dL (5.7-8.2) Albumin 3.3 g/dL (3.2-4.8) Parathyroid Hormone (Intact) 138.3 pg/mL (18.4-80.1) Troponin I High Sensitivity 29 ng/L (</=54) B-Type Natriuretic Peptide 160.51 pg/mL (0-100) Other Laboratory Tests 08/08/24 06:35 Brief Hx & Hospital Course: History of Present Illness The patient is a 69-year-old male with past medical history of CHF, DM, hyperlipidemia, and hypertension who presented to [facility] ED with complaint of shortness of breaths. Patient reports symptoms progressively get worse with weakness, difficulty breathing with hypoxia, bilateral rales, getting worse that EMS were called. When EMS arrived on the scene, patient's blood pressure was 220/103 and was given breathing treatment en route to our facility ED. Patient reports on being non-compliant with all his prescribed medications for the past 4-5 months. Patient was seen and evaluated in the ED, laboratory data shows WBC 6.0 hemoglobin 9.8, hematocrit 29.0, platelets 196, sodium 142, potassium 5.3, BUN 54, creatinine 3.76, glucose 101, troponin 29, BNP 160.51, blood pressure 200/85, heart rate 55, temperature 97.4 F O2 saturation 98% on oxygen. Chest x-ray revealing bilateral interstitial and airspace opacity which may reflect edema or pneumonia. Please see medication orders section in the computer. On my assessment, patient denies chest pain, no headache, no dizziness, no diaphoresis, currently on oxygen, no nausea, no vomiting, no fever, no chills. Patient was admitted for further evaluation and medical management. Course of Hospitalization: Patient was started on antihypertensive regimen with hydralazine and nifedipine. Patient was blood pressure is not controlled. Nephrology consultation has been obtained, who cleared the patient for discharge. Patient has previous renal biopsy. According to the patient, he takes no medications and has been noncompliant for over a year. Echocardiogram was performed which revealed ejection fraction 55%, diastolic heart failure. Patient's symptoms have improved. He was on room air. He is agreeable to continue antihypertensive regimen with hydralazine and nifedipine as well as Lasix. He will follow up with Nephrology in 1-2 weeks as well as his PCP. He is agreeable with discharge plan. All questions answered. Physical examination General: Alert and Oriented x3. No acute distress. Well-nourished. Eyes: EOMI. Anicteric. HENT: Moist mucous membranes. Lungs: Clear to auscultation bilaterally. No accessory muscle use. Cardiovascular: Regular rate and rhythm. No murmur. No JVD. Abdomen: Soft, non-tender and non-distended. No palpable masses. Extremities: No edema. Non-tender. Skin: No rashes or lesions. Warm. Neurologic: No focal neurological deficits. CN II-XII grossly intact, but not individually tested. Psychiatric: Cooperative. Appropriate mood and affect. Total time spent with patient discussing and formulating plan of care: 35 minutes. This medical document was created using an electronic medical record system with [employer] system. Although this document has been carefully reviewed, there may still be some phonetic and typographical errors. These areas are purely typographical due to imperfections of the software programs, and do not reflect any compromise in the patient's medical care. Consults/Reason for consult Nephrology: Chronic kidney disease Condition at Discharge: Guarded Final Diagnosis/Problems List Hypertensive Crisis Secondary Diagnosis: -pulmonary vascular congestion -chronic kidney disease, probably stage IIIB/four, advanced from previous admission -acute kidney injury, probable vasomotor nephropathy -diabetes mellitus, controlled -medication noncompliance Discharge Disposition: Home Discharge Instruct/Medications Diet: Cardiac 2g Na,low cholest Activity: No Restrictions, As Tolerated Follow Up/Referral: Nephrology in 1-2 weeks PCP in 1-2 weeks Medications: Hydralazine 25mg PO BID Procardia XL 30mg po daily Lasix 40mg po daily 36 Discharge Statement: "Patient was advised to return to the ER or call 911 if any headaches, dizziness, shortness of breath, chest pain, abdominal pain, bleeding, fevers, or worsening of medical condition. Patient was counseled about treatment plan, medications, possible side effects, patientverbalized understanding. All questions were answered to the best of my ability. This discharge took greater then 30 minutes in planning, reviewing documentation, counseling the patient, and discussing with other team members." ASSESSMENT ASSESSMENT Assessment Hypertensive Crisis Date of Service: Aug 08, 2024 Billing Provider: GLORIA LEYVA NP Common Visit Codes: [id number] INP/OBS CARE(HIGH) GLORIA LEYVA NP Aug 08, 2024 14:59
[2024-08-08 16:17] VITALS: BP 119/49; PULSE 100; RESP 18; TEMP 97.8; O2SAT 97
[2024-08-09] MEDS ORDERED: NIFE1TAB31 PO (11:01)
[2024-08-09] MEDS ORDERED: FURO1TAB31 PO (11:01)
[2024-08-09] MEDS ORDERED: HYDR25TA87 PO (11:01)
== END 2024-08-08 17:10 | disposition home or self-care (01) | DRG 177 ==
LOC: EDBD 03:56 → ER 03:56 → TELE 15:31 → TELE-WESTW 19:08
PROVIDERS: ADMIT Nurse Practitioner Family; ATTEND Nurse Practitioner Acute Care
DX: J15.69 Pneumonia due to other Gram-negative bacteria (principal); I50.33 Acute on chronic diastolic (congestive) heart failure; N17.0 Acute kidney failure with tubular necrosis; I13.0 Hypertensive heart and chronic kidney disease with heart failure and stage 1 through stage 4 chronic kidney disease, or unspecified chronic kidney disease; N18.4 Chronic kidney disease, stage 4 (severe); J15.9 Unspecified bacterial pneumonia; I16.0 Hypertensive urgency; E11.65 Type 2 diabetes mellitus with hyperglycemia; E78.5 Hyperlipidemia, unspecified; E11.22 Type 2 diabetes mellitus with diabetic chronic kidney disease; E66.9 Obesity, unspecified; Z91.199 Patient's noncompliance with other medical treatment and regimen due to unspecified reason; Z91.148 Patient's other noncompliance with medication regimen for other reason; Z68.29 Body mass index [BMI] 29.0-29.9, adult; Z83.3 Family history of diabetes mellitus; Z87.891 Personal history of nicotine dependence; R09.89 Other specified symptoms and signs involving the circulatory and respiratory systems
CPT/HCPCS: 36415; 71045; 76775; 80048; 80053; 82962; 83036; 83540; 83550; 83735; 83880; 83970; 84100; 84484; 85025; 86850; 86900; 86901; 93005; 93306; 96365; 96375; 99291; G0378; J1956; J3490

== ENCOUNTER 2024-11-25 10:28 | Inpatient (IN) | payer OTHER, MEDICAID ==
[~2024-11-25] VITALS: Ht 162.6 cm; Wt 78.4 kg
[~2024-11-25 10:28] MED LIST changes: -AML5T PO; +HYDR25TA87 PO; +NIFE1TAB31 PO
--- NOTE | 2024-11-25 10:45 | ECG ---
[facility] Test Date: 2024-11-25 Test Time: 10:44:28 Pat Name: HILTON COLEMAN Department: ER Room: 0215T Gender: M Hall Supervisor: CALLIE : 1954-12-08 Requested By: HOLA WEINSTEIN Order Number: [id number] Reading MD: Sebastian Li Measurements Intervals [place] Rate: 60 P: 0 ND: 0 QRS: 78 QRSD: 96 T: 13 QT: 432 QTc: 432 Interpretive Statements Atrial fibrillation Low voltage, precordial leads Electronically Signed On 11-30-2024 22:56:08 PDT by Sebastian Li Please click the below link to view image of tracing.
[2024-11-25 10:50] VITALS: PULSE 65; RESP 16; O2SAT 100
[2024-11-25] MEDS: FUROSEMIDE 40 MG/4 ML VIAL IV ONE (11:00)
[2024-11-25 11:09] LABS: Basophils # (auto) 0.1 10 ^3/uL (0-0.2); Basophils % (auto) 0.7 % (0.0-2.0); Eosinophils # (auto) 0.1 10 ^3/uL (0-0.8); Eosinophils % (auto) 1.2 % (0.0-7.0); Hematocrit 26.4 % (41.0-53.0); Hemoglobin 8.6 g/dL (13.5-17.5); Lymphocytes # (auto) 0.8 10 ^3/uL (0.4-5.4); Lymphocytes % (auto) 11.4 % (10.0-50.0); Mean Corpuscular Hgb Conc. 32.6 g/dL (32.0-36.0); Mean Corpuscular Volume 95.3 fL (80.0-100.0); Monocytes # (auto) 0.4 10 ^3/uL (0-1.3); Monocytes % (auto) 5.3 % (0.0-12.0); Neutrophils # (auto) 5.8 10 ^3/uL (1.6-8.6); Neutrophils % (auto) 81.4 % (37.0-80.0); Platelet Count (auto) 178 10^3/uL (140-450); Red Blood Cells 2.77 10^6/uL (4.5-5.90); Red Cell Distribution Width 16.1 % (11.8-14.3); White Blood Cell 7.1 10^3/uL (4.4-10.8)
[2024-11-25 11:11] LABS: Alkaline Phosphatase 110 U/L (46-116); Anion Gap 11 (5-15); BUN/Creatinine Ratio 17.6 (10.0-20.0); Glucose 78 mg/dL (74-106); Sodium 139 mmol/L (136-145); Total Protein 6.6 g/dL (5.7-8.2)
[2024-11-25 11:12] LABS: Bilirubin, Total 0.5 mg/dL (0.2-1.0)
--- NOTE | 2024-11-25 11:25 | ED.PDOC ---
Musculoskeletal HPI Comments 69y M who presents to the ED for chief complaint of lower extremity swelling. Pt states he has been having bilateral lower extremity swelling for the past 5 days. Pt states he also noted over the past 5 days, he has started to get increasing shortness of breath with associated intermittent chest tightness. Pt states he also been having increased pain with ambulating and states he has need to use cane to help ambulate and has felt unsteady on his feet. Pt states he did have fall 6 weeks ago but states this pain with ambulating over the past 5 days is new. Pt states he has history of CKD with unknown staging and has history of CHF but states he has not taken his lasix for the past few months for unknown reasons. Pt otherwise has temp of 96.9 F, and elevated BP of 171/62 with 02 sat of 100% on room air and all other vitals in normal range. Pt otherwise denies any other symptoms at this time. Chief Complaint: Lower Extremity Time Seen by MD: 10:22 Primary Care Provider: UNKNOWN Reviewed Notes: Medications, Allergies Allergies: Coded Allergies: NO KNOWN ALLERGIES (Unverified , 05/07/18) Home Meds Active Scripts Hydralazine HCl (Hydralazine HCl) 25 Mg Tab, 25 MG PO BID for 30 Days, #60 TAB 3 Refills Prov:GLORIA LEYVA NP 08/09/24 Nifedipine (Nifedipine Er) 30 Mg Tab, 1 TAB PO DAILY for 30 Days, #30 TAB 3 Refills Prov:GLORIA LEYVA NP 08/09/24 Atorvastatin Calcium (ATORVASTATIN CALCIUM) 20 Mg Tab, 20 MG PO HS for 30 Days, #30 TAB 3 Refills Prov:UMA GARNICA MD 12/23/23 Metoprolol Tartrate (LOPRESSOR TABLET) 50 Mg Tb, 50 MG PO BID for 30 Days, #60 TAB 3 Refills Prov:UMA GARNICA MD 12/23/23 Reported Medications Amlodipine Besylate (Amlodipine Besylate) 10 Mg Tab, 1 TAB PO DAILY for 90 Days, #90 08/07/24 Ferrous Sulfate (Ferosul) 325 Mg Tab, 1 TAB PO DAILY 12/20/23 Lisinopril (Lisinopril) 10 Mg Tab, 1 TAB PO DAILY 12/20/23 Information Source: Patient Mode of Arrival: Wheelchair Brought in by: self Past Medical History PAST MEDICAL HISTORY: CHF, CKF, DM, High Lipids, HTN Surgical History: Denies all surgeries Family History Family History: Reviewed,noncontributory to illness Social History Smoker: Non-Smoker Alcohol: Denies ETOH Use Drugs: Denies Drug Use Lives In: Home Constitutional: denies: chills, diaphoresis, fatigue, fever, malaise, sweats, weakness, others EENTM: denies: blurred vision, double vision, ear bleeding, ear discharge, ear drainage, ear pain, ear ringing, eye pain, eye redness, hearing loss, mouth pain, mouth swelling, nasal discharge, nose bleeding, nose congestion, nose pain, photophobia, tearing, throat pain, throat swelling, voice changes, others Respiratory: reports: shortness of breath; denies: cough, hemoptysis, orthopnea, SOB at rest, SOB with excertion, stridor, wheezing, others Cardiovascular: reports: chest pain; denies: dizzy spells, diaphoresis, Dyspnea on exertion, edema, irregular heart beat, left arm pain, lightheadedness, palpitations, PND, syncope, others Gastrointestinal: denies: abdomen distended, abdominal pain, blood streaked bowels, constipated, diarrhea, dysphagia, difficulty swallowing, hematemesis, melena, nausea, poor appetite, poor fluid intake, rectal bleeding, rectal pain, vomiting, others Genitourinary: denies: burning, dysuria, flank pain, frequency, hematuria, incontinence, penile discharge, penile sore, pain, testicle pain, testicle swelling, urgency, others Neurological: denies: dizziness, fainting, headache, left sided numbness, left sided weakness, numbness, paresthesia, pre-existing deficit, right sided numbness, right sided weakness, seizure, speech problems, tingling, tremors, weakness, others Musculoskeletal: reports: joint swelling (b/l lower extremity); denies: back pain, gout, joint pain, muscle pain, muscle stiffness, neck pain, others Integumetry: denies: bruises, change in color, change in hair/nails, dryness, laceration, lesions, lumps, rash, wounds, others Allergic/Immunocompromised: denies: Difficulty Healing, Frequent Infections, Hives, Itching, others Hematologic/Lymphatic: denies: anemia, blood clots, easy bleeding, easy bruising, swollen glands, others Endocrine: denies: excessive hunger, excessive sweating, excessive thirst, excessive urination, flushing, intolerance to cold, intolerance to heat, unexplained weight gain, unexplained weight loss, others Psychiatric: denies: anxiety, bipolar disorder, depression, hopeless, panic disorder, schizophrenia, sleepless, suicidal, others All Other Systems: Reviewed and Negative Physical Exam General Appearance: No Apparent Distress HEENT: PERRL/EOMI Neck: Full Range of Motion, Normal Inspection Respiratory: Decreased Breath Sounds, No Accessory Muscle Use, No Respiratory Distress Cardiovascular: No JVD, Regular Rate/Rhythm Breast Exam: Deferred Gastrointestinal: Non Tender, Soft Genitalia: Deferred Pelvic: Deferred Rectal: Deferred Extremities: Leg edema, Normal range of motion, Pedal edema, Other (Bilateral lower extremity 3+ edema with diffuse soft tissue tenderness.) Neurologic: Alert (Oriented x4), Normal Affect, Normal Mood, Other (Ambulatory. No gross focal deficit.) Cerebellar Function: NOT DONE Reflexes: NOT DONE Skin: Dry, Normal Color, Warm Lymphatic: NOT DONE Was a procedure done? Was a procedure done?: No EKG EKG : Comments Sinus rhythm, rate 60, normal intervals, normal axis, normal QRS, no ST/T changes. Differential Diagnosis EXT Differential Diagnosis: Cellulitis, CHF, Deep Vein Thrombosis, DJD Other Differential Diagnosis Renal failure, electrolyte abnormality, liver failure, lymphedema, among others X-Ray, Labs, Meds, VS Vital Signs Date Time Temp Pulse Resp B/P (MAP) Pulse Ox O2 Delivery O2 Flow Rate FiO2 11/25/24 15:00 68 18 141/68 (92) 99 11/25/24 13:08 69 11/25/24 13:00 98.0 68 18 137/87 (104) 100 98.0 11/25/24 12:55 159/69 11/25/24 12:37 18 99 Room Air* 0 21 11/25/24 11:00 153/87 11/25/24 10:52 96.0 65 16 153/87 (109) 100 96.0 11/25/24 10:50 65 16 100 Room Air* 0 21 11/25/24 10:44 60 11/25/24 10:41 96.9 66 18 171/62 (98) 100 Lab Test 11/25/24 12:53 11/25/24 11:45 11/25/24 10:45 Range/Units POC Glucose 72 70-106 mg/dl Troponin I High Sensitivity 31 29 </=54 ng/L White Blood Count 7.1 4.4-10.8 10^3/uL Red Blood Count 2.77 L 4.5-5.90 10^6/uL Hemoglobin 8.6 L 13.5-17.5 g/dL Hematocrit 26.4 L 41.0-53.0 % Mean Corpuscular Volume 95.3 80.0-100.0 fL Mean Corpuscular Hemoglobin 31.0 28.0-32.0 pg Mean Corpuscular Hemoglobin Concent 32.6 32.0-36.0 g/dL Red Cell Distribution Width 16.1 H 11.8-14.3 % Platelet Count 178 140-450 10^3/uL Mean Platelet Volume 8.2 6.9-10.8 fL Neutrophils (%) (Auto) 81.4 H 37.0-80.0 % Lymphocytes (%) (Auto) 11.4 10.0-50.0 % Monocytes (%) (Auto) 5.3 0.0-12.0 % Eosinophils (%) (Auto) 1.2 0.0-7.0 % Basophils (%) (Auto) 0.7 0.0-2.0 % Neutrophils # (Auto) 5.8 1.6-8.6 10 ^3/uL Lymphocytes # (Auto) 0.8 0.4-5.4 10 ^3/uL Monocytes # (Auto) 0.4 0-1.3 10 ^3/uL Eosinophils # (Auto) 0.1 0-0.8 10 ^3/uL Basophils # (Auto) 0.1 0-0.2 10 ^3/uL Nucleated Red Blood Cells 0.0 % Prothrombin Time 10.5 9.3-11.8 sec Prothrombin Time INR 0.99 0.9-1.15 Activated Partial Thromboplast Time 34.5 24.5-34.5 SEC Sodium Level 139 136-145 mmol/L Potassium Level 5.3 H 3.5-5.1 mmol/L Chloride Level 113 H 98-107 mmol/L Carbon Dioxide Level 15 L 20-31 mmol/L Anion Gap 11 5-15 Blood Urea Nitrogen 77 H 9-23 mg/dL Creatinine 4.38 H 0.700-1.30 mg/dL Glomerular Filtration Rate Calc 14 >90 mL/min BUN/Creatinine Ratio 17.6 10.0-20.0 Serum Glucose 78 74-106 mg/dL Hemoglobin A1c 4.9 <5.7 % A1C Calcium Level 9.0 8.7-10.4 mg/dL Total Bilirubin 0.5 0.2-1.0 mg/dL Aspartate Amino Transferase (AST) 57 H 13-40 U/L Alanine Aminotransferase (ALT) 40 7-40 U/L Alkaline Phosphatase 110 46-116 U/L B-Type Natriuretic Peptide 390.70 0-100 pg/mL Total Protein 6.6 5.7-8.2 g/dL Albumin 4.0 3.2-4.8 g/dL Current Medications Medications (Trade) Dose Ordered Sig/Scott Route Start Time Stop Time Status Last Admin Furosemide (Lasix Injection) 40 mg ONCE ONCE IV 11/25/24 10:45 11/25/24 11:52 DC 11/25/24 11:00 Bumetanide (Bumex Injection) 1 mg ONCE ONCE IV 11/25/24 12:00 11/25/24 12:01 DC 11/25/24 12:55 Zirconium Oxide (Lokelma) 10 gm ONCE ONCE PO 11/25/24 12:00 11/25/24 12:01 DC 11/25/24 12:51 Insulin Human Regular (InsuLIN R) 10 units ONCE ONCE IV 11/25/24 12:00 11/25/24 12:01 DC 11/25/24 12:54 Dextrose 50 ml ONCE ONCE IV 11/25/24 12:00 11/25/24 12:01 DC 11/25/24 12:54 Albuterol (Ventolin Medneb) 5 mg ONCE ONCE NEB 11/25/24 12:00 11/25/24 12:01 DC 11/25/24 12:37 Calcium Gluconate/ Sodium Chloride 50 ml @ 100 mls/hr ONCE ONCE IV 11/25/24 12:00 11/25/24 12:29 DC 11/25/24 12:51 Sodium Bicarbonate 50 ml ONCE ONCE IV 11/25/24 12:00 11/25/24 12:01 DC 11/25/24 12:51 [place] [id number] Ph: [phone] DIAGNOSTIC IMAGING Diagnostic Imaging Report : [id number] Signed PATIENT: HILTON COLEMAN AACCT: [id number] UNIT: [id number] : 12/08/1954 LOC: ER ROOM / BED: / AGE / SEX: 69 / M ADM STATUS: REG ER SERVICE 1035 ORDERING PHYSICIAN: HOLA AVELAR MD PROCEDURE(s): CXRP - CHEST PORTABLE REASON: ble edema ORDER NUMBER(s): [id number], ACCESSION NUMBER(s): [id number] CHEST RADIOGRAPH Indication: ble edema Technique: Single frontal view of the chest was obtained Comparison: XY CHEST PORTABLE on DOS: 08/06/24 FINDINGS: Lines and Tubes: None Lungs: Mild bilateral opacities similar to prior study. Pleura: No effusion. No pneumothorax. Cardiomediastinal contours: Unremarkable Bones: No acute osseous abnormality. IMPRESSION: 1. Mild bilateral opacities which may reflect edema or pneumonia. ATED BY: IVANIA MALONE MD DICTATED DATE/TIME: 11/25/24 115 SIGNED BY: IVANIA MALONE MD SIGNED DATE/TIME: 11/25/24 115 CC: [place] [id number] Ph: [phone] DIAGNOSTIC IMAGING Diagnostic Imaging Report : [id number] Signed PATIENT: HILTON COLEMAN AACCT: [id number] UNIT: [id number] : 12/08/1954 LOC: ER ROOM / BED: / AGE / SEX: 69 / M ADM STATUS: REG ER SERVICE 1035 ORDERING PHYSICIAN: HOLA AVELAR MD PROCEDURE(s): BLDVT - BiLat Lower DVT REASON: ble edema ORDER NUMBER(s): [id number], ACCESSION NUMBER(s): [id number] Bilateral lower extremity venous duplex Clinical History: ble edema Comparison: US BILAT LOWER DVT on DOS: 12/18/23 Technique: Duplex Doppler evaluation of the deep venous systems of both lower extremities from the common femoral veins to the popliteal veins including color Doppler and spectral/pulsed waveform analysis was performed. Findings: RIGHT SIDE: The common femoral vein demonstrates appropriate compressibility and waveform variability. There is compressibility/patency of the great saphenous vein at the proximal thigh. The femoral vein demonstrates appropriate compressibility and waveform variability. The deep femoral vein demonstrates appropriate compressibility and waveform variability. The popliteal vein demonstrates appropriate compressibility and waveform variability. There is color flow at the tibioperoneal trunk and in the posterior tibial vein. LEFT SIDE: The common femoral vein demonstrates appropriate compressibility and waveform variability. There is compressibility/patency of the great saphenous vein at the proximal thigh. The femoral vein demonstrates appropriate compressibility and waveform variability. The deep femoral vein demonstrates appropriate compressibility and waveform variability. The popliteal vein demonstrates appropriate compressibility and waveform variability. There is color flow at the tibioperoneal trunk and in the posterior tibial vein. Impression: 1. No right or left femoropopliteal venous thrombosis. ATED BY: MARTITA BAIG MD DICTATED DATE/TIME: 11/25/24 1153 SIGNED BY: MARTITA BAIG MD SIGNED DATE/TIME: 11/25/24 1153 CC: X-Ray, Labs, Meds, VS Comment 69-year-old male with history of hypertension, hyperlipidemia, diabetes, CKD and CHF complaining of lower extremity edema, chest discomfort, weakness and shortness of breath Vitals unremarkable Exam remarkable for 3+ pitting edema bilateral lower extremities, diminished breath sounds at bilateral bases Rhythm strip independently interpreted by me: Sinus rhythm, rate 60, no ectopy. Chest x-ray IMPRESSION: 1. Mild bilateral opacities which may reflect edema or pneumonia. Bilateral lower extremity ultrasound Impression: 1. No right or left femoropopliteal venous thrombosis. CBC remarkable for hemoglobin 8.6, hematocrit 26.4, metabolic panel remarkable for potassium 5.3, BUN 77, creatinine 4.38, BNP 390.7, troponins negative, UA abnormal Patient treated with the following in the ED: Bumex 1 mg IV, regular insulin 10 units IV, D50 50 mL IV, sodium bicarb 50 mL IV, calcium gluconate 1 g IV, albuterol 5 mg nebulized, Lokelma 10 g p.o. On re-evaluation, patient is resting comfortably with stable vitals. Plan is to admit the patient for diuresis, electrolyte correction, cardiology and nephrology evaluation Time of 1ST Reevaluation: 11:00 Reevaluation 1ST: Unchanged Patient Education/Counseling: Diagnosis, Treatment Family Education/Counseling: No Family Present Additional Information -Reviewed patient's previous visit(s): - The following tests were ordered, and results were reviewed by me: trop x2, cbc, cmp, bnp, ptptt, chest x-ray, ua, ekg x1, peyman lower extremity, - Additional information was gathered from interviewing the following independent Historian: patient - I reviewed and agreed with the following test results read by other provider: radiologist - I discussed treatments and results with medical personnel and: patient Comprehensive systems review obtained and negative except for what is stated in the HPI. Departure 1 Departure Time of Disposition: 11:54 Impression: Primary Impression: Acute renal failure Qualified Codes: N17.9 - Acute kidney failure, unspecified Additional Impressions: Fluid overload Qualified Codes: E87.70 - Fluid overload, unspecified Hyperkalemia Disposition: ADMITTED INPATIENT Admit to: Tele Condition: Guarded Critical Care Note Critical Care Time?: No Stability Stability form required: No Heart Score Heart Score: Heart Score Response (Comments) Value History N/A 0 EKG N/A 0 Age N/A 0 Risk Factors N/A 0 Troponin N/A 0 Total 0 I personally scribed for HOLA AVELAR MD ([email or web address]) on 11/25/24 at 11:25. Electronically submitted by Lee Cazares ([facility] I personally scribed for HOLA AVELAR MD ([email or web address]) on 11/25/24 at 12:01. Electronically submitted by Lee Cazares ([facility]). I personally scribed for HOLA AVELAR MD ([email or web address]) on 11/25/24 at 12:02. Electronically submitted by Lee Cazares ([facility]). HOLA AVELAR MD Nov 25, 2024 11:25
[2024-11-25 11:28] LABS: Alanine Aminotransferase 40 U/L (7-40); Aspartate Aminotransferase 57 U/L (13-40); Blood Urea Nitrogen 77 mg/dL (9-23); Carbon Dioxide 15 mmol/L (20-31); Chloride 113 mmol/L (98-107); Potassium 5.3 mmol/L (3.5-5.1)
[2024-11-25 11:32] LABS: INR 0.99 (0.9-1.15); Partial Thromboplastin Time 34.5 SEC (24.5-34.5); Prothrombin Time 10.5 sec (9.3-11.8)
--- NOTE | 2024-11-25 11:55 | DVH ---
CHEST RADIOGRAPH Indication: ble edema Technique: Single frontal view of the chest was obtained Comparison: XY CHEST PORTABLE on DOS: 08/06/24 FINDINGS: Lines and Tubes: None Lungs: Mild bilateral opacities similar to prior study. Pleura: No effusion. No pneumothorax. Cardiomediastinal contours: Unremarkable Bones: No acute osseous abnormality. IMPRESSION: 1. Mild bilateral opacities which may reflect edema or pneumonia.
--- NOTE | 2024-11-25 11:55 | DVH ---
Bilateral lower extremity venous duplex Clinical History: ble edema Comparison: US BILAT LOWER DVT on DOS: 12/18/23 Technique: Duplex Doppler evaluation of the deep venous systems of both lower extremities from the co mmon femoral veins to the popliteal veins including color Doppler and spectral/pulsed waveform analys is was performed. Findings: RIGHT SIDE: The common femoral vein demonstrates appropriate compressibility and waveform variability. There is compressibility/patency of the great saphenous vein at the proximal thigh. The femoral vein demonstrates appropriate compressibility and waveform variability. The deep femoral vein demonstrates appropriate compressibility and waveform variability. The popliteal vein demonstrates appropriate compressibility and waveform variability. There is color flow at the tibioperoneal trunk and in the posterior tibial vein. LEFT SIDE: The common femoral vein demonstrates appropriate compressibility and waveform variability. There is compressibility/patency of the great saphenous vein at the proximal thigh. The femoral vein demonstrates appropriate compressibility and waveform variability. The deep femoral vein demonstrates appropriate compressibility and waveform variability. The popliteal vein demonstrates appropriate compressibility and waveform variability. There is color flow at the tibioperoneal trunk and in the posterior tibial vein. Impression: 1. No right or left femoropopliteal venous thrombosis.
[2024-11-25] MEDS: ALBUTEROL SULF 2.5 MG/0.5ML(0.5%) NEB SOLN NEB ONE (12:37)
[2024-11-25] MEDS: SODIUM BICARB 8.4% 50Meq/50ml SYR Vial IV ONE (12:51)
[2024-11-25] MEDS: CALCIUM GLUC 1,000mg/50ml-NS 50 ML IV ONE (12:51)
[2024-11-25] MEDS: SODIUM ZIRCONIUM CYCL 10 GM PAK PO ONE (12:51)
[2024-11-25] MEDS: DEXTROSE (50%) 50ML SYRG IV ONE (12:54)
[2024-11-25] MEDS: InsuLIN REG 1unit/0.01ml Soln (100units/ml) IV ONE (12:54)
[2024-11-25] MEDS: BUMETANIDE 1mg/4ml VIAL (0.25mg/ml) IV ONE (12:55)
[2024-11-25] MEDS ORDERED: DEXTROSE (50%) 50ML SYRG IV PRN (16:00)
[2024-11-25] MEDS ORDERED: ACETAMINOPHEN 325 MG TAB PO PRN (16:00)
--- NOTE | 2024-11-25 16:00 | DVHHP2 ---
History of Present Illness Reason for Visit: Bilateral lower extremity edema with shortness of breath History of Present Illness Matias Borges is a 69-year-old male with past medical history of hy pertension, hyperlipidemia, diabetes type 2 and CHF who presents to the ED with bilateral lower extremity edema with shortness of breath and chest tightness x4 days. Patient reports that he has no medications that he is currently taking and has not seen a primary care physician for years. He states that he was in [place] last week with his kids and had gone to the emergency department and was discharged with no medications. Patient is unsure what medical diagnosis he has but he states that he just does not like to take medications. Patient denies any currently chest pain, abdominal pain, nausea, vomiting, diarrhea, fever, chills, recent trauma or injury, lightheadedness, weakness, and dizziness. Patient also reports that he does not have any kidney issues. Cardiovascular: CHF, HTN, hyperipidemia Endocrine: Diabetes Past Surgical History: None Family History: DM, Other (Dad with diabetes) Smoke: No ALCOHOL: none Drugs: Marijuana Lives: Roommate Domestic Violence: Neg Review of Systems Respiratory: Shortness of breath Cardiovascular: Other (Chest tightness) Other Bilateral lower extremity edema Allergies: Coded Allergies: NO KNOWN ALLERGIES (Unverified , 05/07/18) Medications Current Medications Medications Dose Ordered Sig/Scott Route Start Time Stop Time Status Last Admin Dose Admin Furosemide 40 mg BIDD IV 11/25/24 18:00 UNV Ceftriaxone Sodium 50 ml @ 100 mls/hr DAILY@09 IV 11/26/24 09:00 UNV Atorvastatin Calcium 20 mg HS PO 11/25/24 22:00 UNV Hydralazine HCl 25 mg BID PO 11/25/24 22:00 UNV Metoprolol Tartrate 50 mg BID PO 11/25/24 22:00 UNV Nifedipine 30 mg DAILY PO 11/26/24 10:00 UNV Patient Own Medication 1 tab DAILY PO 11/26/24 10:00 UNV Patient Own Medication 1 tab DAILY PO 11/26/24 10:00 UNV Patient Own Medication 1 tab DAILY PO 11/26/24 10:00 UNV Exam Vital Signs Vital Signs Date Time Temp Pulse Resp B/P (MAP) Pulse Ox O2 Delivery O2 Flow Rate FiO2 11/25/24 15:00 68 18 141/68 (92) 99 11/25/24 13:00 98.0 98.0 11/25/24 12:37 Room Air* 0 21 General Appearance: Alert, Oriented X3, Cooperative, No acute distress HEENT: Atraumatic, PERRLA, EOMI, Mucous membr. moist/pink Respiratory: Normal air movement Cardiovascular: Regular rate, Normal S1, Normal S2, No murmurs Abdominal: Normal bowel sounds, Soft, No tenderness, No hepatospenomegaly, No masses Extremities: No clubbing, No cyanosis, Normal pulses Skin: No significant lesion Neuro: Normal speech, Strength at 5/5 X4 ext, Normal tone, Sensation intact Psych/Mental Status: Mental status NL, Mood NL Labs/Xrays Labs Test 11/25/24 12:53 11/25/24 11:45 11/25/24 10:45 Range/Units POC Glucose 72 70-106 mg/dl Troponin I High Sensitivity 31 </=54 ng/L White Blood Count 7.1 4.4-10.8 10^3/uL Red Blood Count 2.77 L 4.5-5.90 10^6/uL Hemoglobin 8.6 L 13.5-17.5 g/dL Hematocrit 26.4 L 41.0-53.0 % Mean Corpuscular Volume 95.3 80.0-100.0 fL Mean Corpuscular Hemoglobin 31.0 28.0-32.0 pg Mean Corpuscular Hemoglobin Concent 32.6 32.0-36.0 g/dL Red Cell Distribution Width 16.1 H 11.8-14.3 % Platelet Count 178 140-450 10^3/uL Mean Platelet Volume 8.2 6.9-10.8 fL Neutrophils (%) (Auto) 81.4 H 37.0-80.0 % Lymphocytes (%) (Auto) 11.4 10.0-50.0 % Monocytes (%) (Auto) 5.3 0.0-12.0 % Eosinophils (%) (Auto) 1.2 0.0-7.0 % Basophils (%) (Auto) 0.7 0.0-2.0 % Neutrophils # (Auto) 5.8 1.6-8.6 10 ^3/uL Lymphocytes # (Auto) 0.8 0.4-5.4 10 ^3/uL Monocytes # (Auto) 0.4 0-1.3 10 ^3/uL Eosinophils # (Auto) 0.1 0-0.8 10 ^3/uL Basophils # (Auto) 0.1 0-0.2 10 ^3/uL Nucleated Red Blood Cells 0.0 % Prothrombin Time 10.5 9.3-11.8 sec Prothrombin Time INR 0.99 0.9-1.15 Activated Partial Thromboplast Time 34.5 24.5-34.5 SEC Sodium Level 139 136-145 mmol/L Potassium Level 5.3 H 3.5-5.1 mmol/L Chloride Level 113 H 98-107 mmol/L Carbon Dioxide Level 15 L 20-31 mmol/L Anion Gap 11 5-15 Blood Urea Nitrogen 77 H 9-23 mg/dL Creatinine 4.38 H 0.700-1.30 mg/dL Glomerular Filtration Rate Calc 14 >90 mL/min BUN/Creatinine Ratio 17.6 10.0-20.0 Serum Glucose 78 74-106 mg/dL Calcium Level 9.0 8.7-10.4 mg/dL Total Bilirubin 0.5 0.2-1.0 mg/dL Aspartate Amino Transferase (AST) 57 H 13-40 U/L Alanine Aminotransferase (ALT) 40 7-40 U/L Alkaline Phosphatase 110 46-116 U/L B-Type Natriuretic Peptide 390.70 0-100 pg/mL Total Protein 6.6 5.7-8.2 g/dL Albumin 4.0 3.2-4.8 g/dL Bilateral lower extremity venous duplex Clinical History: ble edema Comparison: US BILAT LOWER DVT on DOS: 12/18/23 Technique: Duplex Doppler evaluation of the deep venous systems of both lower extremities from the common femoral veins to the popliteal veins including color Doppler and spectral/pulsed waveform analysis was performed. Findings: RIGHT SIDE: The common femoral vein demonstrates appropriate compressibility and waveform variability. There is compressibility/patency of the great saphenous vein at the proximal thigh. The femoral vein demonstrates appropriate compressibility and waveform variability. The deep femoral vein demonstrates appropriate compressibility and waveform variability. The popliteal vein demonstrates appropriate compressibility and waveform variability. There is color flow at the tibioperoneal trunk and in the posterior tibial vein. LEFT SIDE: The common femoral vein demonstrates appropriate compressibility and waveform variability. There is compressibility/patency of the great saphenous vein at the proximal thigh. The femoral vein demonstrates appropriate compressibility and waveform variability. The deep femoral vein demonstrates appropriate compressibility and waveform variability. The popliteal vein demonstrates appropriate compressibility and waveform variability. There is color flow at the tibioperoneal trunk and in the posterior tibial vein. Impression: 1. No right or left femoropopliteal venous thrombosis. CHEST RADIOGRAPH Indication: ble edema Technique: Single frontal view of the chest was obtained Comparison: XY CHEST PORTABLE on DOS: 08/06/24 FINDINGS: Lines and Tubes: None Lungs: Mild bilateral opacities similar to prior study. Pleura: No effusion. No pneumothorax. Cardiomediastinal contours: Unremarkable Bones: No acute osseous abnormality. IMPRESSION: 1. Mild bilateral opacities which may reflect edema or pneumonia. Assessment/Plan Assessment/Plan Assessment Acute on chronic CHF exacerbation PNA Anemia Hyperkalemia SHEREE Marijuana use Obesity History of hypertension History of hyperlipidemia History of diabetes Plan Admit to med surge Hyperkalemia protocol Diuretics Troponin negative x2 Bilateral lower extremity DVT noted EKG UA Chest x-ray PT/PTT BNP DVT prophylaxis Lovenox Strict I&Os Daily weights IV antibiotics-ceftriaxone Nephro consult Diet Discussed plan of care with patient and nurse Home medications resumed Rounding hospitalist to decide when to resume home medication of potassium chloride Counseled patient on cessation of marijuana use Counseled patient on lifestyle modifications, diet, and exercise Plan discussed with: Patient My Orders Orders - DINA HICKS LICENSED CERTIFIED ORTHOTIST Procedure Category Date Status Time Furosemide Injection PHA 11/25/24 Logged (Lasix Injection) 18:00 *Dr. [facility] CONS 11/25/24 Transmitted -[place] 15:48 Ceftriaxone 1gm/50ml PHA 11/26/24 Logged D5w (Rocephin) 09:00 Ceftriaxone 1gm/50ml PHA 11/25/24 Logged D5w (Rocephin) 16:00 * Cardiology Consult CONS 11/25/24 Transmitted 15:48 Atorvastatin (Lipitor) PHA 11/25/24 Logged 22:00 Hydralazine Hcl PHA 11/25/24 Logged Tablet (Apresoline 22:00 Metoprolol Tartrate PHA 11/25/24 Logged Tablet (Lopressor Ta 22:00 Nifedipine Er PHA 11/26/24 Logged (Procardia Xl 10:00 (Nf) Amlodipine PHA 11/26/24 Logged Besylate 10:00 (Nf) Ferrous Sulfate PHA 11/26/24 Logged (Ferosul) 10:00 (Nf) Lisinopril PHA 11/26/24 Logged 10:00 Date of Service: Nov 25, 2024 Billing Provider: DINA HICKS Common Visit Codes: [id number] INP/OBS CARE (HIGH) DINA HICKS Nov 25, 2024 16:00
[2024-11-25] MEDS: InsuLIN REG 1unit/0.01ml Soln (100units/ml) SC SCH (17:00)
[2024-11-25] MEDS: cefTRIAXone 1GM/50ML D5W 50 ML IV ONE (17:01)
[2024-11-25] MEDS: ACCU-CHEK COMFORT CURVE STRIP VI SCH (17:05)
[2024-11-25 17:33] LABS: Urine Bacteria FEW /hpf (None Seen); Urine Blood 2+ /uL (Negative); Urine Clarity Clear (Clear); Urine Color Colorless (Yellow); Urine Protein, UAD 2+ (Negative); Urine Specific Gravity 1.011 (1.001-1.035); Urine Squamous Epithelial Cell FEW /hpf (<5); Urine Urobilinogen Normal (Negative); Urine WBC 1 /HPF (0-3); Urine pH 5.5 (5.0-9.0)
[2024-11-25] MEDS: FUROSEMIDE 40 MG/4 ML VIAL IV SCH (18:10)
[2024-11-25] MEDS: HYDROcodone-ACET 5/325MG TAB PO PRN (18:25)
[2024-11-25 21:00] VITALS: BP 134/68; PULSE 65; RESP 18; TEMP 97.3; O2SAT 97
[2024-11-25] MEDS: hydrALAZINE HCL 25 MG TAB PO SCH (21:10)
[2024-11-25] MEDS: ATORVASTATIN 20 MG TAB PO SCH (21:11)
[2024-11-25] MEDS: METOPROLOL TARTRATE 50 MG TAB PO SCH (21:11)
[2024-11-26] VITALS (12 sets, daily range): BP systolic 115–166; BP diastolic 60–82; PULSE 14–61; RESP 14–18; TEMP 97.2–98.5; O2SAT 94–100
[2024-11-26 06:27] LABS: Eosinophils # (auto) 0.1 10 ^3/uL (0-0.8); Lymphocytes # (auto) 0.9 10 ^3/uL (0.4-5.4); Monocytes # (auto) 0.3 10 ^3/uL (0-1.3); Neutrophils # (auto) 2.4 10 ^3/uL (1.6-8.6); White Blood Cell 3.8 10^3/uL (4.4-10.8)
[2024-11-26 06:31] LABS: Basophils # (auto) 0 10 ^3/uL (0-0.2); Basophils % (auto) 1.2 % (0.0-2.0); Eosinophils % (auto) 3.1 % (0.0-7.0); Hematocrit 21.3 % (41.0-53.0); Hemoglobin 7.5 g/dL (13.5-17.5); Lymphocytes % (auto) 22.7 % (10.0-50.0); Mean Corpuscular Hemoglobin 32.6 pg (28.0-32.0); Mean Corpuscular Hgb Conc. 35.3 g/dL (32.0-36.0); Mean Corpuscular Volume 92.5 fL (80.0-100.0); Monocytes % (auto) 8.7 % (0.0-12.0); Neutrophils % (auto) 64.3 % (37.0-80.0); Platelet Count (auto) 161 10^3/uL (140-450); Red Blood Cells 2.31 10^6/uL (4.5-5.90); Red Cell Distribution Width 16.1 % (11.8-14.3)
[2024-11-26 06:51] LABS: Alanine Aminotransferase 33 U/L (7-40); Albumin 3.5 g/dL (3.2-4.8); Alkaline Phosphatase 84 U/L (46-116); Anion Gap 13 (5-15); BUN/Creatinine Ratio 18.4 (10.0-20.0); Bilirubin, Total 0.5 mg/dL (0.2-1.0); Calcium 9.3 mg/dL (8.7-10.4); Sodium 141 mmol/L (136-145); Total Protein 5.8 g/dL (5.7-8.2)
[2024-11-26 06:54] LABS: Aspartate Aminotransferase 41 U/L (13-40); Carbon Dioxide 16 mmol/L (20-31); Chloride 112 mmol/L (98-107); Glucose 69 mg/dL (74-106)
[2024-11-26 06:56] LABS: Blood Urea Nitrogen 86 mg/dL (9-23)
[2024-11-26] MEDS: FERROUS SULFATE 325mg EC TAB PO SCH (09:42)
[2024-11-26] MEDS: ENOXAPARIN SOD 30 MG/0.3 ML SYRINGE SC SCH (09:42)
[2024-11-26] MEDS: cefTRIAXone 1GM/50ML D5W 50 ML IV SCH (09:45)
[2024-11-26] MEDS: NIFEdipine ER 30 MG TAB PO SCH (09:49)
--- NOTE | 2024-11-26 09:51 | DVHPN2 ---
Subjective 69-year-old male with a history of chronic kidney disease, diastolic heart failure, type 2 diabetes, hypertension comes with chief complaint of swelling in his legs and shortness of breaths The patient says he has not taken any medications for about a month, he does not know what medications he is supposed to be taking, he was here 4 months ago with hypertensive urgency, he was here about a year ago for anasarca and edema He has stage 3 kidney disease, creatinine has worsened up to 4.6 today with a potassium of 5.0 He is anemic with a hemoglobin of 7.5 Chest x-ray shows pulmonary edema He has 2+ edema bilaterally in his legs Changes from previous H/P or p: Changes Cardiovascular: Other (Chest tightness) Respiratory: Shortness of breath Objective Vitals Vital Signs Date Time Temp Pulse Resp B/P (MAP) Pulse Ox O2 Delivery O2 Flow Rate FiO2 11/26/24 08:30 97.4 61 14 154/82 (106) 96 97.4 11/25/24 20:00 Room Air* 0 21 Intake/Output Intake and Output 11/26/24 07:00 Intake Total 1000 ml Output Total 600 ml Balance 400 ml Intake Oral 1000 ml Output Urine Total 600 ml General Appearance: Alert, Oriented X3, Cooperative, No acute distress Lungs: Other (Crackles at the bases) Cardiovascular: Regular rate, Normal S1, Normal S2 Abdomen: Normal bowel sounds, Soft, No tenderness Extremities: Other (2+ edema bilaterally in the legs) Medications Current Medications Medications Dose Ordered Sig/Scott Route Start Time Stop Time Status Last Admin Dose Admin Furosemide 40 mg BIDD IV 11/25/24 18:00 11/26/24 05:49 40 MG Ceftriaxone Sodium 50 ml @ 100 mls/hr DAILY@09 IV 11/26/24 09:00 Atorvastatin Calcium 20 mg HS PO 11/25/24 22:00 11/25/24 21:11 20 MG Hydralazine HCl 25 mg BID PO 11/25/24 22:00 11/25/24 21:10 25 MG Metoprolol Tartrate 50 mg BID PO 11/25/24 22:00 11/25/24 21:11 50 MG Nifedipine 30 mg DAILY PO 11/26/24 10:00 Amlodipine Besylate 10 mg DAILY PO 11/26/24 10:00 Future Hold Ferrous Sulfate 325 mg DAILY PO 11/26/24 10:00 Lisinopril 10 mg DAILY PO 11/26/24 10:00 Diagnostic Test (Pha) 1 strip ACHS 11/25/24 17:00 11/26/24 06:42 1 STRIP Insulin Human Regular ACHS SC 11/25/24 17:00 Dextrose 50 ml UD PRN IV 11/25/24 16:00 Acetaminophen/ Hydrocodone Bitart 1 tab Q4HP PRN PO 11/25/24 16:00 11/25/24 18:25 1 TAB Ondansetron HCl 4 mg Q4HP PRN IV 11/25/24 16:00 Enoxaparin Sodium 30 mg DAILY SC 11/26/24 10:00 Acetaminophen 650 mg Q6HP PRN PO 11/25/24 16:00 Laboratory Results Laboratory Tests 11/26/24 06:00 Chemistry Test 11/25/24 10:45 11/26/24 06:00 Albumin 4.0 g/dL (3.2-4.8) 3.5 g/dL (3.2-4.8) Calcium Level 9.0 mg/dL (8.7-10.4) 9.3 mg/dL (8.7-10.4) Total Protein 6.6 g/dL (5.7-8.2) 5.8 g/dL (5.7-8.2) Coagulation Test 11/25/24 10:45 Prothrombin Time 10.5 sec (9.3-11.8) Prothrombin Time INR 0.99 (0.9-1.15) Activated Partial Thromboplast Time 34.5 SEC (24.5-34.5) Cardiac Markers Test 11/25/24 10:45 B-Type Natriuretic Peptide 390.70 pg/mL (0-100) LFT Test 11/25/24 10:45 11/26/24 06:00 Alanine Aminotransferase (ALT) 40 U/L (7-40) 33 U/L (7-40) Alkaline Phosphatase 110 U/L (46-116) 84 U/L (46-116) Aspartate Amino Transferase (AST) 57 U/L (13-40) H 41 U/L (13-40) H Total Bilirubin 0.5 mg/dL (0.2-1.0) 0.5 mg/dL (0.2-1.0) HgA1c, TSH Test 11/25/24 10:45 Hemoglobin A1c 4.9 % A1C (<5.7) Urinalysis Test 11/25/24 17:00 Urine Color Colorless (Yellow) Urine Clarity Clear (Clear) Urine pH 5.5 (5.0-9.0) Urine Specific [place] 1.011 (1.001-1.035) Urine Protein 2+ (Negative) H Urine Ketones Negative (Negative) Urine Blood 2+ /uL (Negative) H Urine Nitrite Negative (Negative) Urine Bilirubin Negative (Negative) Urine Urobilinogen Normal mg/dL (Negative) Urine Leukocyte Esterase Negative /uL (Negative) Urine RBC 4 /hpf (0 - 3) Urine Microscopic WBC 1 /HPF (0-3) Urine Squamous Epithelial Cells Few /hpf (<5) Urine Bacteria Few /hpf (None Seen) H Urine Glucose Normal mg/dL (Normal) Assessment/Plan Assessment/Plan Acute hypoxic respiratory failure Generalized edema Worsening chronic kidney disease Diastolic heart failure Chronic anemia most likely due to chronic kidney disease Type 2 diabetes Hypertension Mixed hyperlipidemia Hyperkalemia Pulmonary edema Plan IV Lasix 40 mg twice a day Nephrology consult Discontinue lisinopril Continue metoprolol and nifedipine and hydralazine Cardiology consult Echocardiogram Rocephin IV for possible underlying pneumonia The patient is on room air now, feels better Cloth Hand closely Full code Plan discussed with: Patient My Orders Orders - VINITA RICHARDS MD Procedure Category Date Status Time Transfer Orders XFER 11/26/24 Transmitted 08:30 Date of Service: Nov 26, 2024 Billing Provider: VINITA RICHARDS MD Common Visit Codes: NOT BILLABLE VINITA RICHARDS MD Nov 26, 2024 09:51
[2024-11-26] MEDS ORDERED: LISINOPRIL 5 MG TAB PO SCH (10:00)
[2024-11-26] MEDS ORDERED: amLODIPine BESYLATE 5 MG TAB PO SCH (10:00)
--- NOTE | 2024-11-26 10:55 | DVHINCON2 ---
Date of service: Nov 26, [address] Zapien Reason for Consultation Acute kidney injury History of Present Illness Patient is 69-year-old male with past medical history significant for CHF, CKD stage IV, DM, High Lipids, and HTN is admitted for generalized weakness and bilateral lower extremity swelling on admission patient found to have elevated BUN creatinine nephrology is consulted for acute kidney injury Past Medical History PAST MEDICAL HISTORY: CHF, CKF, DM, High Lipids, HTN Past Surgical History Surgical History: Denies all surgeries Allergies: Coded Allergies: NO KNOWN ALLERGIES (Unverified , 05/07/18) Home Meds Active Scripts Hydralazine HCl (Hydralazine HCl) 25 Mg Tab, 25 MG PO BID for 30 Days, #60 TAB 3 Refills Prov:GLORIA LEYVA [employer] MACHINE BINDERY OPERATOR 08/09/24 Nifedipine (Nifedipine Er) 30 Mg Tab, 1 TAB PO DAILY for 30 Days, #30 TAB 3 Refills Prov:GLORIA LEYVA SMALL MACHINE BINDERY OPERATOR 08/09/24 Atorvastatin Calcium (ATORVASTATIN CALCIUM) 20 Mg Tab, 20 MG PO HS for 30 Days, #30 TAB 3 Refills Prov:UMA GARNICA MD 12/23/23 Metoprolol Tartrate (LOPRESSOR TABLET) 50 Mg Tb, 50 MG PO BID for 30 Days, #60 TAB 3 Refills Prov:MUA GARNICA MD 12/23/23 Reported Medications Amlodipine Besylate (Amlodipine Besylate) 10 Mg Tab, 1 TAB PO DAILY for 90 Days, #90 08/07/24 Ferrous Sulfate (Ferosul) 325 Mg Tab, 1 TAB PO DAILY 12/20/23 Lisinopril (Lisinopril) 10 Mg Tab, 1 TAB PO DAILY 12/20/23 Current Medications Current Medications Medications (Trade) Dose Ordered Sig/Scott Route PRN Reason Start Time Stop Time Status Last Admin Furosemide (Lasix Injection) 40 mg BIDD IV 11/25/24 18:00 11/26/24 05:49 Ceftriaxone Sodium 50 ml @ 100 mls/hr DAILY@09 IV 11/26/24 09:00 11/26/24 09:45 Atorvastatin Calcium (Lipitor) 20 mg HS PO 11/25/24 22:00 11/25/24 21:11 Hydralazine HCl (Apresoline Tablet) 25 mg BID PO 11/25/24 22:00 11/26/24 09:41 Metoprolol Tartrate (Lopressor Tablet) 50 mg BID PO 11/25/24 22:00 11/25/24 21:11 Nifedipine (Procardia Xl (Time-Release)) 30 mg DAILY PO 11/26/24 10:00 11/26/24 09:49 Amlodipine Besylate (Norvasc Tablet) 10 mg DAILY PO 11/26/24 10:00 Hold Ferrous Sulfate 325 mg DAILY PO 11/26/24 10:00 11/26/24 09:42 Lisinopril (Zestril Tablet) 10 mg DAILY PO 11/26/24 10:00 11/26/24 09:50 DC Diagnostic Test (Pha) (Accu-Chek Comfort Curve T) 1 strip ACHS 11/25/24 17:00 11/26/24 06:42 Insulin Human Regular (InsuLIN R) ACHS SC 11/25/24 17:00 Dextrose 50 ml UD PRN IV Blood Sugar LESS THAN 60 11/25/24 16:00 Acetaminophen/ Hydrocodone Bitart ([place] 5/325MG Tab) 1 tab Q4HP PRN PO MODERATE PAIN (4-6 PAIN SCALE) 11/25/24 16:00 11/25/24 18:25 Ondansetron HCl (Zofran) 4 mg Q4HP PRN IV NAUSEA / VOMITING 11/25/24 16:00 Enoxaparin Sodium (Lovenox) 30 mg DAILY SC 11/26/24 10:00 11/26/24 09:42 Acetaminophen (Tylenol Tablet) 650 mg Q6HP PRN PO PAIN SCALE 1-3 OR TEMP>100.4 11/25/24 16:00 Family History: Diabetes during Diabetes mellitus G8 MOTHER G8 FATHER Review of Systems All 12 item review of systems reviewed with the patient nonsignificant except what is mentioned in the history of present illness H&P Exam Vital Signs/I&O Vital Sign Date Time Temp Pulse Resp B/P (MAP) Pulse Ox O2 Delivery O2 Flow Rate FiO2 11/26/24 09:49 157/82 11/26/24 09:48 59 11/26/24 08:30 97.4 14 96 97.4 11/25/24 20:00 Room Air* 0 21 Intake and Output 11/25/24 11/26/24 19:00 07:00 Intake Total 1000 ml Output Total 600 ml Balance 400 ml Intake Oral 1000 ml Output Urine Total 600 ml Physical Exam The patient is awake alert Lungs clear to auscultation bilaterally Cardiac exam regular rate and rhythm GI soft nontender was normal Extremity 1+ edema bilaterally Neuro nonfocal Labs/Diagnostic Data Labs/Diagnostic Data Laboratory Tests Test 11/26/24 06:16 11/26/24 06:00 11/25/24 21:02 11/25/24 17:04 Range/Units POC Glucose 70 97 92 70-106 mg/dl White Blood Count 3.8 #L 4.4-10.8 10^3/uL Red Blood Count 2.31 L 4.5-5.90 10^6/uL Hemoglobin 7.5 L 13.5-17.5 g/dL Hematocrit 21.3 #L 41.0-53.0 % Mean Corpuscular Volume 92.5 80.0-100.0 fL Mean Corpuscular Hemoglobin 32.6 H 28.0-32.0 pg Mean Corpuscular Hemoglobin Concent 35.3 32.0-36.0 g/dL Red Cell Distribution Width 16.1 H 11.8-14.3 % Platelet Count 161 140-450 10^3/uL Mean Platelet Volume 8.4 6.9-10.8 fL Neutrophils (%) (Auto) 64.3 37.0-80.0 % Lymphocytes (%) (Auto) 22.7 10.0-50.0 % Monocytes (%) (Auto) 8.7 0.0-12.0 % Eosinophils (%) (Auto) 3.1 0.0-7.0 % Basophils (%) (Auto) 1.2 0.0-2.0 % Neutrophils # (Auto) 2.4 1.6-8.6 10 ^3/uL Lymphocytes # (Auto) 0.9 0.4-5.4 10 ^3/uL Monocytes # (Auto) 0.3 0-1.3 10 ^3/uL Eosinophils # (Auto) 0.1 0-0.8 10 ^3/uL Basophils # (Auto) 0 0-0.2 10 ^3/uL Nucleated Red Blood Cells 0.0 % Sodium Level 141 136-145 mmol/L Potassium Level 5.0 3.5-5.1 mmol/L Chloride Level 112 H 98-107 mmol/L Carbon Dioxide Level 16 L 20-31 mmol/L Anion Gap 13 5-15 Blood Urea Nitrogen 86 *H 9-23 mg/dL Creatinine 4.67 H 0.700-1.30 mg/dL Glomerular Filtration Rate Calc 13 >90 mL/min BUN/Creatinine Ratio 18.4 10.0-20.0 Serum Glucose 69 L 74-106 mg/dL Calcium Level 9.3 8.7-10.4 mg/dL Total Bilirubin 0.5 0.2-1.0 mg/dL Aspartate Amino Transferase (AST) 41 H 13-40 U/L Alanine Aminotransferase (ALT) 33 7-40 U/L Alkaline Phosphatase 84 46-116 U/L Total Protein 5.8 5.7-8.2 g/dL Albumin 3.5 3.2-4.8 g/dL Test 11/25/24 17:00 11/25/24 12:53 11/25/24 11:45 11/25/24 10:45 Range/Units Urine Color Colorless Yellow Urine Clarity Clear Clear Urine pH 5.5 5.0-9.0 Urine Specific [place] 1.011 1.001-1.035 Urine Protein 2+ H Negative Urine Ketones Negative Negative Urine Blood 2+ H Negative /uL Urine Nitrite Negative Negative Urine Bilirubin Negative Negative Urine Urobilinogen Normal Negative mg/dL Urine Leukocyte Esterase Negative Negative /uL Urine RBC 4 0 - 3 /hpf Urine Microscopic WBC 1 0-3 /HPF Urine Squamous Epithelial Cells Few <5 /hpf Urine Bacteria Few H None Seen /hpf Urine Glucose Normal Normal mg/dL POC Glucose 72 70-106 mg/dl Troponin I High Sensitivity 31 29 </=54 ng/L White Blood Count 7.1 4.4-10.8 10^3/uL Red Blood Count 2.77 L 4.5-5.90 10^6/uL Hemoglobin 8.6 L 13.5-17.5 g/dL Hematocrit 26.4 L 41.0-53.0 % Mean Corpuscular Volume 95.3 80.0-100.0 fL Mean Corpuscular Hemoglobin 31.0 28.0-32.0 pg Mean Corpuscular Hemoglobin Concent 32.6 32.0-36.0 g/dL Red Cell Distribution Width 16.1 H 11.8-14.3 % Platelet Count 178 140-450 10^3/uL Mean Platelet Volume 8.2 6.9-10.8 fL Neutrophils (%) (Auto) 81.4 H 37.0-80.0 % Lymphocytes (%) (Auto) 11.4 10.0-50.0 % Monocytes (%) (Auto) 5.3 0.0-12.0 % Eosinophils (%) (Auto) 1.2 0.0-7.0 % Basophils (%) (Auto) 0.7 0.0-2.0 % Neutrophils # (Auto) 5.8 1.6-8.6 10 ^3/uL Lymphocytes # (Auto) 0.8 0.4-5.4 10 ^3/uL Monocytes # (Auto) 0.4 0-1.3 10 ^3/uL Eosinophils # (Auto) 0.1 0-0.8 10 ^3/uL Basophils # (Auto) 0.1 0-0.2 10 ^3/uL Nucleated Red Blood Cells 0.0 % Prothrombin Time 10.5 9.3-11.8 sec Prothrombin Time INR 0.99 0.9-1.15 Activated Partial Thromboplast Time 34.5 24.5-34.5 SEC Sodium Level 139 136-145 mmol/L Potassium Level 5.3 H 3.5-5.1 mmol/L Chloride Level 113 H 98-107 mmol/L Carbon Dioxide Level 15 L 20-31 mmol/L Anion Gap 11 5-15 Blood Urea Nitrogen 77 H 9-23 mg/dL Creatinine 4.38 H 0.700-1.30 mg/dL Glomerular Filtration Rate Calc 14 >90 mL/min BUN/Creatinine Ratio 17.6 10.0-20.0 Serum Glucose 78 74-106 mg/dL Hemoglobin A1c 4.9 <5.7 % A1C Calcium Level 9.0 8.7-10.4 mg/dL Total Bilirubin 0.5 0.2-1.0 mg/dL Aspartate Amino Transferase (AST) 57 H 13-40 U/L Alanine Aminotransferase (ALT) 40 7-40 U/L Alkaline Phosphatase 110 46-116 U/L B-Type Natriuretic Peptide 390.70 0-100 pg/mL Total Protein 6.6 5.7-8.2 g/dL Albumin 4.0 3.2-4.8 g/dL Assessment Acute kidney injury superimposed Chronic Kidney Disease stage IV now progressed to end-stage renal disease requiring initiation of hemodialysis Congestive heart failure exacerbation Hypertension Diabetes mellitus type 2 Anemia of chronic kidney disease Metabolic acidosis secondary to chronic kidney disease Recommendation I discussed risk and benefits of hemodialysis with the patient he agrees Consents for tunneled hemodialysis catheter on hemodialysis Check hep B surface antigen Check urine protein excretion phosphorus PTH and 25 hydroxyvitamin D Check kidney ultrasound Blood pressure control Renal diet We will continue to follow Patient seen and examined by myself. I discussed my plan of care with the patient and primary nurse at the bedside I would like to thank Dr. Zapien for the consult, will Plan discussed with: Patient JULIANNE ROMERO MD Nov 26, 2024 10:55
[2024-11-26] MEDS: MIDAZOLAM HCL 2MG/2ML 2ml VIAL (1mg/ml) ONE (11:14)
[2024-11-26] MEDS: HEPARIN SODIUM (PORCINE) 5000 UNITS/ML 1ML VIAL ONE (11:14)
[2024-11-26] MEDS: fentaNYL CITRATE 100 MCG/2 ML VL ONE (11:14)
[2024-11-26 11:18] LABS: Magnesium 2.3 mg/dL (1.6-2.6)
[2024-11-26] MEDS: LIDOCAINE 2%HCL (LOCAL ANESTH.) INJ 20ML MDV ONE (11:33)
[2024-11-26 11:38] LABS: Hepatitis B Surface Antigen Negative (Negative)
--- NOTE | 2024-11-26 11:45 | DVH ---
RENAL ULTRASOUND CLINICAL HISTORY: ana TECHNIQUE: Multiple ultrasound images of the kidneys and bladder were obtained. COMPARISON: US KIDNEY on DOS: 08/07/24, US KIDNEY on DOS: 12/18/23 FINDINGS: The right kidney measures 9.5 cm in length. The left kidney measures 10.0 cm. There is no sonographic evidence of a discrete renal lesion, nephrolithiasis or hydronephrosis kidneys demonstrate appropria te cortical thickness. There is small amount of right perinephric fluid. Incidental note is made of b ilateral pleural effusions. The bladder appears within normal limits with prevoid volume 332 cc. IMPRESSION: 1. Small amount of right perinephric fluid. 2. The kidneys otherwise demonstrate unremarkable sonographic appearance. HS:Y
[2024-11-26 11:58] LABS: Hepatitis C Antibody Negative (Negative)
--- NOTE | 2024-11-26 13:17 | DVH ---
XY Insertion of Venous Cath HISTORY: HD CATH PROCEDURE: Informed consent was obtained. The patient was placed supine on the interventional table. A limited localization ultrasound of the right neck base was obtained. The right neck base and upper chest were prepped with chlorhexidine which was allowed to dry and draped in the usual sterile fashio n. Time out was performed. IV sedation was administered. The skin and the soft tissues were infiltrat ed with 1% Lidocaine mixed with Epinephrine. With real-time ultrasound guidance, the internal jugular vein was accessed with a micropuncture kit, and an image documenting patency was recorded to PACS. A subcutaneous tunneled tract was created from the right upper chest to the venotomy site. A 14.5 Fren [address] [place] [address], 19 cm long hemodialysis catheter was advanced through the tunneled tract. Fluoroscopy was used to advance a guidewire through the internal jugular vein into the inferior vena cava. Following serial dilatation, a 15 [place]ese peel-away sheath was introduced, though which was adva nced the catheter into the right atrium. The catheter tip position was confirmed with fluoroscopy. Th ere was satisfactory flow in both lumens. The catheter lumens were flushed with saline and heparin wa s left indwelling in the catheter. A post-procedure image of the chest was obtained. The neck incisio n site was closed with a and dressed sterilely. The catheter was sutured at the skin surface and exi t site also dressed sterilely. No immediate complication was identified. DAP 76 FLUOROSCOPY TIME: 0.9 minutes. SEDATION: Dr. Sherry Chaidez was personally responsible for the administration of moderate sedation during the procedure performed, including the use of an independent trained observer who had no other duties during the procedure. The drugs utilized were IV fentanyl and versed (see nursing log for details). The total time of supervision by the attending physician was approximately 30 minutes. FINDINGS: Widely patent right IJV. Post procedure image demonstrates smooth course of the hemodialysi s catheter with the tip in the right atrium. IMPRESSION: Successful placement of 14.5 [place] [address], 19 cm long hemodialysis catheter through right purchasing internship al jugular vein. Plan: Please contact IR for removal when no longer needed.
--- NOTE | 2024-11-26 17:49 | DVH ---
EXAM: XY L KNEE 2V XRAY CLINICAL HISTORY: left knee pain COMPARISON: None TECHNIQUE: XY L KNEE 2V XRAY Findings/Impression: 2 views of the left knee. There is no evidence of an acute fracture, dislocation, blastic, or lytic lesions. Moderate to severe osteoarthritis. No radiopaque foreign bodies. Small joint effusion. Mild soft tissue edema.
[2024-11-26] MEDS: hydrALAZINE HCL 20 MG/ML VL IV PRN (18:02)
[2024-11-27] VITALS (8 sets, daily range): BP systolic 106–154; BP diastolic 54–82; PULSE 57–72; RESP 15–20; TEMP 97.3–97.7; O2SAT 96–99
[2024-11-27 06:51] LABS: Potassium 4.8 mmol/L (3.5-5.1); Sodium 139 mmol/L (136-145)
[2024-11-27 06:52] LABS: Anion Gap 13 (5-15); Basophils # (auto) 0.1 10 ^3/uL (0-0.2); Eosinophils # (auto) 0.1 10 ^3/uL (0-0.8); Eosinophils % (auto) 2.5 % (0.0-7.0); Hematocrit 23.5 % (41.0-53.0); Hemoglobin 8.2 g/dL (13.5-17.5); Lymphocytes # (auto) 0.9 10 ^3/uL (0.4-5.4); Lymphocytes % (auto) 16.3 % (10.0-50.0); Mean Corpuscular Hemoglobin 33.1 pg (28.0-32.0); Mean Corpuscular Hgb Conc. 35.1 g/dL (32.0-36.0); Mean Corpuscular Volume 94.3 fL (80.0-100.0); Monocytes # (auto) 0.4 10 ^3/uL (0-1.3); Monocytes % (auto) 7.5 % (0.0-12.0); Neutrophils # (auto) 4.1 10 ^3/uL (1.6-8.6); Neutrophils % (auto) 72.7 % (37.0-80.0); Platelet Count (auto) 156 10^3/uL (140-450); Red Blood Cells 2.49 10^6/uL (4.5-5.90); Red Cell Distribution Width 16.4 % (11.8-14.3); White Blood Cell 5.7 10^3/uL (4.4-10.8)
[2024-11-27 06:57] LABS: BUN/Creatinine Ratio 17.7 (10.0-20.0); Glucose 84 mg/dL (74-106)
[2024-11-27 06:58] LABS: Magnesium 2.3 mg/dL (1.6-2.6)
[2024-11-27] MEDS ORDERED: SODIUM CHL 0.9% 1000 ML BAG XX ONE (07:00)
[2024-11-27 07:18] LABS: Carbon Dioxide 17 mmol/L (20-31); Chloride 109 mmol/L (98-107)
[2024-11-27 07:20] LABS: Blood Urea Nitrogen 82 mg/dL (9-23)
[2024-11-27] MEDS: hydrALAZINE HCL 25 MG TAB PO SCH (08:00)
[2024-11-27] MEDS: FUROSEMIDE 40 MG/4 ML VIAL IV SCH (09:00)
--- NOTE | 2024-11-27 12:19 | DVHPN2 ---
Subjective He says he feels better He is still has 2+ edema bilaterally in his legs Scheduled for dialysis today Changes from previous H/P or p: Changes Cardiovascular: Other (Chest tightness) Respiratory: Shortness of breath Objective Vitals Vital Signs Date Time Temp Pulse Resp B/P (MAP) Pulse Ox O2 Delivery O2 Flow Rate FiO2 11/27/24 09:00 97.6 69 20 145/74 (97) 96 97.6 11/26/24 20:00 Room Air* 0 21 Intake/Output Intake and Output 11/27/24 07:00 Intake Total 930 ml Output Total 3000 ml Balance -2070 ml Intake Oral 880 ml IV Total 50 ml Output Urine Total 3000 ml # Voids 2 # Bowel Movements 1 General Appearance: Alert, Oriented X3, Cooperative, No acute distress Lungs: Other (Crackles at the bases) Cardiovascular: Regular rate, Normal S1, Normal S2 Abdomen: Normal bowel sounds, Soft, No tenderness Extremities: Other (2+ edema bilaterally in the legs) Medications Current Medications Medications Dose Ordered Sig/Scott Route Start Time Stop Time Status Last Admin Dose Admin Ceftriaxone Sodium 50 ml @ 100 mls/hr DAILY@09 IV 11/26/24 09:00 11/27/24 08:55 100 MLS/HR Atorvastatin Calcium 20 mg HS PO 11/25/24 22:00 11/26/24 21:34 20 MG Metoprolol Tartrate 50 mg BID PO 11/25/24 22:00 11/25/24 21:11 50 MG Nifedipine 30 mg DAILY PO 11/26/24 10:00 11/26/24 09:49 30 MG Amlodipine Besylate 10 mg DAILY PO 11/26/24 10:00 Hold Ferrous Sulfate 325 mg DAILY PO 11/26/24 10:00 11/27/24 09:00 325 MG Diagnostic Test (Pha) 1 strip ACHS 11/25/24 17:00 11/27/24 06:57 1 STRIP Insulin Human Regular ACHS SC 11/25/24 17:00 Dextrose 50 ml UD PRN IV 11/25/24 16:00 Acetaminophen/ Hydrocodone Bitart 1 tab Q4HP PRN PO 11/25/24 16:00 11/26/24 17:04 1 TAB Ondansetron HCl 4 mg Q4HP PRN IV 11/25/24 16:00 Enoxaparin Sodium 30 mg DAILY SC 11/26/24 10:00 11/27/24 08:55 30 MG Acetaminophen 650 mg Q6HP PRN PO 11/25/24 16:00 Furosemide 40 mg DAILY IV 11/27/24 10:00 11/27/24 09:00 40 MG Hydralazine HCl 25 mg Q8H PO 11/27/24 08:00 Hydralazine HCl 10 mg Q6HP PRN IV 11/26/24 17:00 11/26/24 18:02 10 MG Laboratory Results Laboratory Tests 11/27/24 05:35 Chemistry Test 11/27/24 05:35 Calcium Level 9.0 mg/dL (8.7-10.4) Magnesium Level 2.3 mg/dL (1.6-2.6) Urinalysis Test 11/25/24 17:00 Urine Color Colorless (Yellow) Urine Clarity Clear (Clear) Urine pH 5.5 (5.0-9.0) Urine Specific [place] 1.011 (1.001-1.035) Urine Protein 2+ (Negative) H Urine Ketones Negative (Negative) Urine Blood 2+ /uL (Negative) H Urine Nitrite Negative (Negative) Urine Bilirubin Negative (Negative) Urine Urobilinogen Normal mg/dL (Negative) Urine Leukocyte Esterase Negative /uL (Negative) Urine RBC 4 /hpf (0 - 3) Urine Microscopic WBC 1 /HPF (0-3) Urine Squamous Epithelial Cells Few /hpf (<5) Urine Bacteria Few /hpf (None Seen) H Urine Glucose Normal mg/dL (Normal) Microbiology Microbiology Date/Time Source Procedure Growth Status 11/26/24 15:11 Nose MRSA Screen - Final Complete Assessment/Plan Assessment/Plan Acute hypoxic respiratory failure Generalized edema Worsening chronic kidney disease Diastolic heart failure Chronic anemia most likely due to chronic kidney disease Type 2 diabetes Hypertension Mixed hyperlipidemia Hyperkalemia Pulmonary edema Plan IV Lasix 40 mg twice a day Nephrology consult Discontinue lisinopril Continue metoprolol and nifedipine and hydralazine Cardiology consult Echocardiogram Rocephin IV for possible underlying pneumonia The patient is on room air now, feels better University Manager closely Full code 11/27/2024: Hemodialysis for today The patient had a dialysis catheter in his right chest area Monitor closely Plan discussed with: Patient My Orders Orders - VINITA RICHARDS MD Procedure Category Date Status Time Insertion Of Venous XY 11/26/24 Resulted Cath 12:58 L Knee 2v Xray XY 11/26/24 Resulted 15:36 Hydralazine Hcl PHA 11/27/24 In Process Tablet (Apresoline 08:00 Hydralazine Injection PHA 11/26/24 In Process (Apresoline Inject 17:00 Date of Service: Nov 27, 2024 Billing Provider: VINITA RICHARDS MD Common Visit Codes: NOT BILLABLE VINITA RICHARDS MD Nov 27, 2024 12:19
--- NOTE | 2024-11-27 15:00 | DVHPN2 ---
Progress Note Date Seen: Nov 27, 2024 Medical Necessity Reason Pt with a Central, PICC or Fol: No Subjective Patient reports: No new complaints Other Systems: Patient seen and examined by myself today in follow-up Objective vital signs Vital Sign Date Time Temp Pulse Resp B/P (MAP) Pulse Ox O2 Delivery O2 Flow Rate FiO2 11/27/24 13:24 97.7 66 18 141/76 (97) 98 97.7 11/26/24 20:00 Room Air* 0 21 Total Intake and Output 11/26/24 11/26/24 11/27/24 15:00 23:00 07:00 Intake Total 50 ml 480 ml 400 ml Output Total 3000 ml Balance 50 ml 480 ml -2600 ml medications Current Medications Medications Dose Ordered Sig/Scott Route Start Time Stop Time Status Last Admin Dose Admin Ceftriaxone Sodium 50 ml @ 100 mls/hr DAILY@09 IV 11/26/24 09:00 11/27/24 08:55 100 MLS/HR Atorvastatin Calcium 20 mg HS PO 11/25/24 22:00 11/26/24 21:34 20 MG Metoprolol Tartrate 50 mg BID PO 11/25/24 22:00 11/25/24 21:11 50 MG Nifedipine 30 mg DAILY PO 11/26/24 10:00 11/26/24 09:49 30 MG Amlodipine Besylate 10 mg DAILY PO 11/26/24 10:00 Hold Ferrous Sulfate 325 mg DAILY PO 11/26/24 10:00 11/27/24 09:00 325 MG Diagnostic Test (Pha) 1 strip ACHS 11/25/24 17:00 11/27/24 12:25 1 STRIP Insulin Human Regular ACHS SC 11/25/24 17:00 Dextrose 50 ml UD PRN IV 11/25/24 16:00 Acetaminophen/ Hydrocodone Bitart 1 tab Q4HP PRN PO 11/25/24 16:00 11/26/24 17:04 1 TAB Ondansetron HCl 4 mg Q4HP PRN IV 11/25/24 16:00 Enoxaparin Sodium 30 mg DAILY SC 11/26/24 10:00 11/27/24 08:55 30 MG Acetaminophen 650 mg Q6HP PRN PO 11/25/24 16:00 Furosemide 40 mg DAILY IV 11/27/24 10:00 11/27/24 09:00 40 MG Hydralazine HCl 25 mg Q8H PO 11/27/24 08:00 Hydralazine HCl 10 mg Q6HP PRN IV 11/26/24 17:00 11/26/24 18:02 10 MG Examination: LUNGS:Normal, CVS:Normal, MSK:Normal laboratory and microbiology Laboratory Tests 11/27/24 05:35 Test 11/27/24 05:35 Range/Units Serum Glucose 84 74-106 mg/dL Microbiology Date/Time Source Procedure Growth Status 11/26/24 15:11 Nose MRSA Screen - Final Complete Problem List/Assessment/Plan Problem List/Assessment/Plan Acute kidney injury superimposed Chronic Kidney Disease stage IV now progressed to end-stage renal disease requiring initiation of hemodialysis Congestive heart failure exacerbation Hypertension Diabetes mellitus type 2 Anemia of chronic kidney disease Metabolic acidosis secondary to chronic kidney disease Hyperphosphatemia Status post tunneled IJ hemodialysis catheter Recommendation Hemodialysis tomorrow Epogen 76006 IV post hemodialysis Check hep B surface antigen kidney ultrasound reported within normal limits Blood pressure control Renvela 1600 mg p.o. t.i.d. with meals Renal diet We will continue to follow Plan discussed with: Patient My Orders My Orders Orders - JULIANNE ROMERO MD Procedure Category Date Status Time Hemodialysis Orders ORDERS 11/28/24 Verified 07:00 JULIANNE ROMERO MD Nov 27, 2024 15:00
--- NOTE | 2024-11-27 16:07 | DVHINCON2 ---
SASHA CLARK [facility] 11/27/24 1607: Date Seen: Nov 27, 2024 Referring Physician ALOK Urena Reason for Consultation CHF History of Present Illness This is a pleasant 69-year-old man who presented to the emergency room with a chief complaint of bilateral lower extremity edema. Complains of progressive lower extremity edema associated with HEARD, and anasarca. Denies chest pain, palpitations, diaphoresis, dizziness, or syncopal events. He underwent a 12 lead electrocardiogram revealing a sinus rhythm with artifact (read as atrial fibrillation by ECG machine). Serial troponin levels are negative. Significant medical history includes advanced chronic kidney disease, hypertension, diabetes mellitus, cannabinoid use, and obesity. Past Medical History Past medical history reviewed. No other significant than mentioned above. Past Surgical History Right upper chest Morgan cath Family History: Diabetes during Diabetes mellitus G8 MOTHER G8 FATHER Family History Family history reviewed. Social History Denies the use of alcohol or tobacco use. Admits to cannabinoid use. Allergies: Coded Allergies: NO KNOWN ALLERGIES (Unverified , 05/07/18) Home Meds Active Scripts Atorvastatin Calcium (ATORVASTATIN CALCIUM) 20 Mg Tab, 1 TAB PO DAILY, #30 TAB 5 Refills Prov:VINITA RICHARDS MD 11/28/24 Hydralazine HCl (Hydralazine HCl) 25 Mg Tab, 25 MG PO TID, #90 TAB 3 Refills Prov:VINITA RICHARDS MD 11/28/24 Metoprolol Succinate (Metoprolol Succinate Er) 50 Mg Tab, 1 TAB PO BID, #60 TAB 5 Refills Prov:VINITA RICHARDS MD 11/28/24 Nifedipine (Nifedipine Er) 60 Mg Tab, 1 TAB PO DAILY, #30 TAB 5 Refills Prov:VINITA RICHARDS MD 11/28/24 Nifedipine (Nifedipine Er) 30 Mg Tab, 1 TAB PO DAILY for 30 Days, #30 TAB 3 Refills Prov:GLORIA LEYVA NP 08/09/24 Atorvastatin Calcium (ATORVASTATIN CALCIUM) 20 Mg Tab, 20 MG PO HS for 30 Days, #30 TAB 3 Refills Prov:UMA GARNICA MD 12/23/23 Metoprolol Tartrate (LOPRESSOR TABLET) 50 Mg Tb, 50 MG PO BID for 30 Days, #60 TAB 3 Refills Prov:UMA GARNICA MD 12/23/23 Reported Medications Ferrous Sulfate (Ferosul) 325 Mg Tab, 1 TAB PO DAILY 12/20/23 Discontinued Reported Medications Amlodipine Besylate (Amlodipine Besylate) 10 Mg Tab, 1 TAB PO DAILY for 90 Days, #90 08/07/24 Lisinopril (Lisinopril) 10 Mg Tab, 1 TAB PO DAILY 12/20/23 Discontinued Scripts Hydralazine HCl (Hydralazine HCl) 25 Mg Tab, 25 MG PO BID for 30 Days, #60 TAB 3 Refills Prov:GLORIA LEYVA NP 08/09/24 Home Meds Home medications reviewed. Current Medications Current Medications Medications (Trade) Dose Ordered Sig/Scott Route PRN Reason Start Time Stop Time Status Last Admin Furosemide (Lasix Injection) 40 mg DAILY IV 11/27/24 10:00 11/27/24 09:00 Hydralazine HCl (Apresoline Tablet) 25 mg Q8H PO 11/27/24 08:00 Hydralazine HCl (Apresoline Injection) 10 mg Q6HP PRN IV SBP>150 11/26/24 17:00 11/26/24 18:02 Sevelamer HCl (Renagel) 1,600 mg TIDWM PO 11/27/24 18:00 Review of Systems Constitutional: Anasarca Ears, Nose, & Throat: No symptom reported Eyes: No symptom reported Neurological: No symptoms reported Pulmonary/Respiratory: SOB Cardiovascular: No symptom reported Gastrointestinal: No symptom reported Genitourinary: No symptom reported Musculoskeletal: No symptom reported Skin: No symptom reported Psychiatric: No symptom reported Endocrine: No symptom reported Hemotologic/Lymphatic: No symptom reported Vital Signs Vital Signs Date Time Temp Pulse Resp B/P (MAP) Pulse Ox O2 Delivery O2 Flow Rate FiO2 11/27/24 13:24 97.7 66 18 141/76 (97) 98 97.7 11/27/24 08:00 Room Air* 0 21 Physical Exam General Appearance: Cooperative. Well developed. Obese. In no acute distress Head Exam: Normal inspection Neck Exam: Normal inspection. Non-tender. Normal alignment Pulmonary/Respiratory: Chest non-tender. Diminished bilateral breath sounds Cardiovascular/Chest: Regular rate and rhythm. S1, S2. NSR. No murmurs. No JVD. Peripheral Pulses: 2+ Radial (R). 2+ Radial (L). 2+ Pedal (R). 2+ Pedal (L) Abdominal Exam: Normal bowel sounds. Soft. Nontender. No hepatospenomegaly. No masses Ankle Exam: Negative ankle edema Lower extremities: Negative lower extremity edema Neuro/Mental Status: A&O x4. Coherent Thoughts/Psych: Normal thought pattern. Appropriate mood and affect. Good judgement and insight Appearance: In no acute distress Skin Exam: Normal inspection. Normal color. Warm. Dry Labs/Diagnostic Data Labs Test 11/27/24 10:59 11/27/24 05:35 11/26/24 06:00 11/25/24 17:00 Range/Units POC Glucose 106 70-106 mg/dl White Blood Count 5.7 # 4.4-10.8 10^3/uL Red Blood Count 2.49 L 4.5-5.90 10^6/uL Hemoglobin 8.2 L 13.5-17.5 g/dL Hematocrit 23.5 #L 41.0-53.0 % Mean Corpuscular Volume 94.3 80.0-100.0 fL Mean Corpuscular Hemoglobin 33.1 H 28.0-32.0 pg Mean Corpuscular Hemoglobin Concent 35.1 32.0-36.0 g/dL Red Cell Distribution Width 16.4 H 11.8-14.3 % Platelet Count 156 140-450 10^3/uL Mean Platelet Volume 8.6 6.9-10.8 fL Neutrophils (%) (Auto) 72.7 37.0-80.0 % Lymphocytes (%) (Auto) 16.3 10.0-50.0 % Monocytes (%) (Auto) 7.5 0.0-12.0 % Eosinophils (%) (Auto) 2.5 0.0-7.0 % Basophils (%) (Auto) 1.0 0.0-2.0 % Neutrophils # (Auto) 4.1 1.6-8.6 10 ^3/uL Lymphocytes # (Auto) 0.9 0.4-5.4 10 ^3/uL Monocytes # (Auto) 0.4 0-1.3 10 ^3/uL Eosinophils # (Auto) 0.1 0-0.8 10 ^3/uL Basophils # (Auto) 0.1 0-0.2 10 ^3/uL Nucleated Red Blood Cells 0.0 % Sodium Level 139 136-145 mmol/L Potassium Level 4.8 3.5-5.1 mmol/L Chloride Level 109 H 98-107 mmol/L Carbon Dioxide Level 17 L 20-31 mmol/L Anion Gap 13 5-15 Blood Urea Nitrogen 82 *H 9-23 mg/dL Creatinine 4.64 H 0.700-1.30 mg/dL Glomerular Filtration Rate Calc 13 >90 mL/min BUN/Creatinine Ratio 17.7 10.0-20.0 Serum Glucose 84 74-106 mg/dL Calcium Level 9.0 8.7-10.4 mg/dL Magnesium Level 2.3 1.6-2.6 mg/dL Phosphorus Level 7.0 H 2.4-5.1 mg/dL Total Bilirubin 0.5 0.2-1.0 mg/dL Aspartate Amino Transferase (AST) 41 H 13-40 U/L Alanine Aminotransferase (ALT) 33 7-40 U/L Alkaline Phosphatase 84 46-116 U/L Total Protein 5.8 5.7-8.2 g/dL Albumin 3.5 3.2-4.8 g/dL Vitamin D 25-Hydroxy 30.7 30.0-100 ng/mL Parathyroid Hormone (Intact) 224.0 H 18.4-80.1 pg/mL Hepatitis B Surface Antigen Negative Negative Hepatitis C Antibody Negative Negative Urine Color Colorless Yellow Urine Clarity Clear Clear Urine pH 5.5 5.0-9.0 Urine Specific [place] 1.011 1.001-1.035 Urine Protein 2+ H Negative Urine Ketones Negative Negative Urine Blood 2+ H Negative /uL Urine Nitrite Negative Negative Urine Bilirubin Negative Negative Urine Urobilinogen Normal Negative mg/dL Urine Leukocyte Esterase Negative Negative /uL Urine RBC 4 0 - 3 /hpf Urine Microscopic WBC 1 0-3 /HPF Urine Squamous Epithelial Cells Few <5 /hpf Urine Bacteria Few H None Seen /hpf Urine Glucose Normal Normal mg/dL Test 11/25/24 11:45 11/25/24 10:45 Range/Units Troponin I High Sensitivity 31 </=54 ng/L Prothrombin Time 10.5 9.3-11.8 sec Prothrombin Time INR 0.99 0.9-1.15 Activated Partial Thromboplast Time 34.5 24.5-34.5 SEC Hemoglobin A1c 4.9 <5.7 % A1C B-Type Natriuretic Peptide 390.70 0-100 pg/mL Microbiology Date/Time Source Procedure Growth Status 11/26/24 15:11 Nose MRSA Screen - Final Complete Assessment Renocardiac syndrome type 4 Advanced CKD, now for HD Hypertension Dyslipidemia Diabetes mellitus type 2 Acute on chronic anemia Obesity Plan/Recommendation (Dr. Aleman) The patient presents with renocardiac syndrome type 4. Continue nephrology recommendations for hemodialysis. Agree with furosemide treatment. Recent echocardiogram from 07/1924 revealed an LVEF of 55%. There is no further cardiac workup indicated at this time. Kindly call if in need to re-consult. Thank you for allowing us to participate in this patient's care. Please call if you have any questions or concerns. This medical document was created using an electronic medical record system with voice recognition software and computerized dictation system. Although this document has been carefully reviewed, there might still be some phonetic and typographical errors. Occasional wrong-word or ``sound-alike substitutions may have occurred due to the inherent limitations of voice recognition software. These areas are purely typographical due to imperfections of the software programs and do not reflect any compromise in the patient's medical care. Please read the chart carefully and recognize, using context, where these substitutions have occurred. Plan discussed with: Patient, Other NYHA Physical activity limitations: NA Date of Service: Nov 27, 2024 Billing Provider: SASAH CLARK [facility] Cardiology Common Codes: [id number] INP/OBS CARE (High) IKE ALEMAN MD 11/29/24 1616: Date Seen: Nov 27, 2024 Family History: Diabetes during Diabetes mellitus G8 MOTHER G8 FATHER Allergies: Coded Allergies: NO KNOWN ALLERGIES (Unverified , 05/07/18) Home Meds Active Scripts Atorvastatin Calcium (ATORVASTATIN CALCIUM) 20 Mg Tab, 1 TAB PO DAILY, #30 TAB 5 Refills Prov:VINITA RICHARDS MD 11/28/24 Hydralazine HCl (Hydralazine HCl) 25 Mg Tab, 25 MG PO TID, #90 TAB 3 Refills Prov:VINITA RICHARDS MD 11/28/24 Metoprolol Succinate (Metoprolol Succinate Er) 50 Mg Tab, 1 TAB PO BID, #60 TAB 5 Refills Prov:VINITA RICHARDS MD 11/28/24 Nifedipine (Nifedipine Er) 60 Mg Tab, 1 TAB PO DAILY, #30 TAB 5 Refills Prov:VINITA RICHARDS MD 11/28/24 Nifedipine (Nifedipine Er) 30 Mg Tab, 1 TAB PO DAILY for 30 Days, #30 TAB 3 Refills Prov:GLORIA LEYVA NP 08/09/24 Atorvastatin Calcium (ATORVASTATIN CALCIUM) 20 Mg Tab, 20 MG PO HS for 30 Days, #30 TAB 3 Refills Prov:UMA GARNICA MD 12/23/23 Metoprolol Tartrate (LOPRESSOR TABLET) 50 Mg Tb, 50 MG PO BID for 30 Days, #60 TAB 3 Refills Prov:UMA GARNICA MD 12/23/23 Reported Medications Ferrous Sulfate (Ferosul) 325 Mg Tab, 1 TAB PO DAILY 12/20/23 Discontinued Reported Medications Amlodipine Besylate (Amlodipine Besylate) 10 Mg Tab, 1 TAB PO DAILY for 90 Days, #90 08/07/24 Lisinopril (Lisinopril) 10 Mg Tab, 1 TAB PO DAILY 12/20/23 Discontinued Scripts Hydralazine HCl (Hydralazine HCl) 25 Mg Tab, 25 MG PO BID for 30 Days, #60 TAB 3 Refills Prov:GLORIA LEYVA NP 08/09/24 Assessment 69 year-old male presenting with acute chronic renal failure, volume overload, likely secondary to renal failure. Minimal urine output. Poor quality EKG incorrectly read as atrial fibrillation. Patient is a normal sinus at bedside.Recommend management nephrology for optimization of volume status. Echocardiogram in July with normal LV ejection fraction. Referred to outpatient cardiology as needed. Thank you for this consultation. Plan discussed with: Patient Cardiology Common Codes: [id number] INP/OBS CARE (Mod) SASHA CLARK [employer] Nov 27, 2024 16:07 IKE ALEMAN MD Nov 29, 2024 16:16
[2024-11-27] MEDS: SEVELAMER 800 MG TAB PO SCH (17:16)
[2024-11-27] MEDS ORDERED: EPOETIN ALFA-EPBX 10,000 UNIT/1ML VIAL SC ONE (21:00)
[2024-11-27] MEDS: MELATONIN 5 MG TAB PO PRN (21:38)
[2024-11-28 05:00] VITALS: BP 129/78; PULSE 58; RESP 18; TEMP 97.4; O2SAT 98
[2024-11-28 06:33] LABS: Anion Gap 13 (5-15); Potassium 4.6 mmol/L (3.5-5.1); Sodium 140 mmol/L (136-145)
[2024-11-28 06:34] LABS: Calcium 9.1 mg/dL (8.7-10.4)
[2024-11-28 06:39] LABS: BUN/Creatinine Ratio 17.8 (10.0-20.0); Glucose 75 mg/dL (74-106)
[2024-11-28 06:43] LABS: Carbon Dioxide 17 mmol/L (20-31); Chloride 110 mmol/L (98-107)
[2024-11-28 06:45] LABS: Blood Urea Nitrogen 80 mg/dL (9-23)
[2024-11-28 08:00] VITALS: PULSE 55; PULSE 56; RESP 16; O2SAT 93
[2024-11-28 09:22] VITALS: BP 143/68; PULSE 56; RESP 16; TEMP 97.6; O2SAT 93
--- NOTE | 2024-11-28 11:35 | DVHPN2 ---
Progress Note Date Seen: Nov 28, 2024 Medical Necessity Reason Pt with a Central, PICC or Fol: No Subjective Other Systems: Patient seen and examined by myself today in follow-up Patient examined hemodialysis, Objective vital signs Vital Sign Date Time Temp Pulse Resp B/P (MAP) Pulse Ox O2 Delivery O2 Flow Rate FiO2 11/28/24 09:22 97.6 56 16 143/68 (93) 93 97.6 11/27/24 19:50 Nasal Cannula* 2 28 Total Intake and Output 11/27/24 11/27/24 11/28/24 15:00 23:00 07:00 Intake Total 580 ml 500 ml Output Total 600 ml 300 ml Balance -20 ml 200 ml medications Current Medications Medications Dose Ordered Sig/Scott Route Start Time Stop Time Status Last Admin Dose Admin Ceftriaxone Sodium 50 ml @ 100 mls/hr DAILY@09 IV 11/26/24 09:00 11/27/24 08:55 100 MLS/HR Atorvastatin Calcium 20 mg HS PO 11/25/24 22:00 11/27/24 21:38 20 MG Metoprolol Tartrate 50 mg BID PO 11/25/24 22:00 11/27/24 21:39 50 MG Nifedipine 30 mg DAILY PO 11/26/24 10:00 11/26/24 09:49 30 MG Ferrous Sulfate 325 mg DAILY PO 11/26/24 10:00 11/28/24 10:13 325 MG Diagnostic Test (Pha) 1 strip ACHS 11/25/24 17:00 11/28/24 06:44 1 STRIP Insulin Human Regular ACHS SC 11/25/24 17:00 Dextrose 50 ml UD PRN IV 11/25/24 16:00 Acetaminophen/ Hydrocodone Bitart 1 tab Q4HP PRN PO 11/25/24 16:00 11/26/24 17:04 1 TAB Ondansetron HCl 4 mg Q4HP PRN IV 11/25/24 16:00 Enoxaparin Sodium 30 mg DAILY SC 11/26/24 10:00 11/28/24 10:12 30 MG Acetaminophen 650 mg Q6HP PRN PO 11/25/24 16:00 Furosemide 40 mg DAILY IV 11/27/24 10:00 11/27/24 09:00 40 MG Hydralazine HCl 25 mg Q8H PO 11/27/24 08:00 11/27/24 17:17 25 MG Hydralazine HCl 10 mg Q6HP PRN IV 11/26/24 17:00 11/26/24 18:02 10 MG Sevelamer HCl 1,600 mg TIDWM PO 11/27/24 18:00 11/28/24 10:12 1,600 MG Melatonin 10 mg HS PRN PO 11/27/24 22:00 11/27/24 21:38 10 MG Examination: LUNGS:Normal (Blood pressure stable), CVS:Normal, MSK:Normal laboratory and microbiology Laboratory Tests 11/28/24 05:05 11/27/24 05:35 Test 11/28/24 05:05 Range/Units Serum Glucose 75 74-106 mg/dL Microbiology Date/Time Source Procedure Growth Status 11/26/24 15:11 Nose MRSA Screen - Final Complete Problem List/Assessment/Plan Problem List/Assessment/Plan Acute kidney injury superimposed Chronic Kidney Disease stage IV now progressed to end-stage renal disease requiring initiation of hemodialysis Congestive heart failure exacerbation Hypertension Diabetes mellitus type 2 Anemia of chronic kidney disease Metabolic acidosis secondary to chronic kidney disease Hyperphosphatemia Status post tunneled IJ hemodialysis catheter Recommendation Continue with UF 1-2 L as tolerated Epogen 56578 IV post hemodialysis Check hep B surface antigen kidney ultrasound reported within normal limits Blood pressure control Renvela 1600 mg p.o. t.i.d. with meals Renal diet Patient was cleared from Nephrology for discharge after hemodialysis today when chair time is available at [facility] dialysis Plan discussed with: Patient My Orders My Orders Orders - JULIANNE ROMERO MD Procedure Category Date Status Time Hemodialysis Orders ORDERS 11/28/24 Transmitted 07:00 Sevelamer (Renagel) PHA 11/27/24 In Process 18:00 JULIANNE ROMERO MD Nov 28, 2024 11:35
[2024-11-28] MEDS: ONDANSETRON HCL 4 MG/2 ML VIAL IV PRN (11:51)
[2024-11-28 13:26] VITALS: BP 181/94; PULSE 67; RESP 17; TEMP 96.7; O2SAT 97
[2024-11-28] MEDS ORDERED: ATOR20TA50 PO (14:12)
[2024-11-28] MEDS ORDERED: METO-289 PO (14:12)
[2024-11-28] MEDS ORDERED: NIFE1TAB30 PO (14:12)
[2024-11-28] MEDS ORDERED: HYDR25TA87 PO (14:12)
--- NOTE | 2024-11-28 14:15 | DVHDS2 ---
Discharge Summary Date of Admission Nov 25, 2024 at 15:50 Date of Discharge: Nov 28, 2024 Labs/Diagnostic Data: Laboratory Results Test 11/28/24 11:04 11/28/24 05:05 11/27/24 05:35 11/26/24 06:00 POC Glucose 104 mg/dl (70-106) Sodium Level 140 mmol/L (136-145) Potassium Level 4.6 mmol/L (3.5-5.1) Chloride Level 110 mmol/L (98-107) Carbon Dioxide Level 17 mmol/L (20-31) Anion Gap 13 (5-15) Blood Urea Nitrogen 80 mg/dL (9-23) Creatinine 4.50 mg/dL (0.700-1.30) Glomerular Filtration Rate Calc 14 mL/min (>90) BUN/Creatinine Ratio 17.8 (10.0-20.0) Serum Glucose 75 mg/dL (74-106) Calcium Level 9.1 mg/dL (8.7-10.4) White Blood Count 5.7 10^3/uL (4.4-10.8) Red Blood Count 2.49 10^6/uL (4.5-5.90) Hemoglobin 8.2 g/dL (13.5-17.5) Hematocrit 23.5 % (41.0-53.0) Mean Corpuscular Volume 94.3 fL (80.0-100.0) Mean Corpuscular Hemoglobin 33.1 pg (28.0-32.0) Mean Corpuscular Hemoglobin Concent 35.1 g/dL (32.0-36.0) Red Cell Distribution Width 16.4 % (11.8-14.3) Platelet Count 156 10^3/uL (140-450) Mean Platelet Volume 8.6 fL (6.9-10.8) Neutrophils (%) (Auto) 72.7 % (37.0-80.0) Lymphocytes (%) (Auto) 16.3 % (10.0-50.0) Monocytes (%) (Auto) 7.5 % (0.0-12.0) Eosinophils (%) (Auto) 2.5 % (0.0-7.0) Basophils (%) (Auto) 1.0 % (0.0-2.0) Neutrophils # (Auto) 4.1 10 ^3/uL (1.6-8.6) Lymphocytes # (Auto) 0.9 10 ^3/uL (0.4-5.4) Monocytes # (Auto) 0.4 10 ^3/uL (0-1.3) Eosinophils # (Auto) 0.1 10 ^3/uL (0-0.8) Basophils # (Auto) 0.1 10 ^3/uL (0-0.2) Nucleated Red Blood Cells 0.0 % Magnesium Level 2.3 mg/dL (1.6-2.6) Phosphorus Level 7.0 mg/dL (2.4-5.1) Total Bilirubin 0.5 mg/dL (0.2-1.0) Aspartate Amino Transferase (AST) 41 U/L (13-40) Alanine Aminotransferase (ALT) 33 U/L (7-40) Alkaline Phosphatase 84 U/L (46-116) Total Protein 5.8 g/dL (5.7-8.2) Albumin 3.5 g/dL (3.2-4.8) Vitamin D 25-Hydroxy 30.7 ng/mL (30.0-100) Parathyroid Hormone (Intact) 224.0 pg/mL (18.4-80.1) Hepatitis B Surface Antigen Negative (Negative) Hepatitis C Antibody Negative (Negative) Test 11/25/24 17:00 11/25/24 11:45 11/25/24 10:45 Urine Color Colorless (Yellow) Urine Clarity Clear (Clear) Urine pH 5.5 (5.0-9.0) Urine Specific [place] 1.011 (1.001-1.035) Urine Protein 2+ (Negative) Urine Ketones Negative (Negative) Urine Blood 2+ /uL (Negative) Urine Nitrite Negative (Negative) Urine Bilirubin Negative (Negative) Urine Urobilinogen Normal mg/dL (Negative) Urine Leukocyte Esterase Negative /uL (Negative) Urine RBC 4 /hpf (0 - 3) Urine Microscopic WBC 1 /HPF (0-3) Urine Squamous Epithelial Cells Few /hpf (<5) Urine Bacteria Few /hpf (None Seen) Urine Glucose Normal mg/dL (Normal) Troponin I High Sensitivity 31 ng/L (</=54) Prothrombin Time 10.5 sec (9.3-11.8) Prothrombin Time INR 0.99 (0.9-1.15) Activated Partial Thromboplast Time 34.5 SEC (24.5-34.5) Hemoglobin A1c 4.9 % A1C (<5.7) B-Type Natriuretic Peptide 390.70 pg/mL (0-100) Other Laboratory Tests 11/28/24 05:05 11/27/24 05:35 Brief Hx & Hospital Course: Final diagnoses: Acute hypoxic respiratory failure due to fluid overload and pulmonary edema Generalized edema Worsening chronic kidney disease Diastolic heart failure Chronic anemia most likely due to chronic kidney disease Type 2 diabetes Hypertension Mixed hyperlipidemia Hyperkalemia Pulmonary edema End-stage kidney disease 69-year-old male with a history of chronic kidney disease who came with generalized edema and pulmonary edema and shortness of breaths He has not been compliant with his medications He had chronic kidney disease for a long time but now he has progressed to end- stage renal disease Nephrology saw the patient recommended to initiate hemodialysis He had a catheter inserted and then he had a dialysis initiated The patient is feeling better He is on room air Nephrology has cleared the patient since he already has a chair time in 2 days and he will be going to dialysis 3 times a week The patient is stable for discharge He will be given refills on his medications which include nifedipine and Lipitor and hydralazine and metoprolol Follow up with the dialysis clinic on 11/30/2024 and then 3 times a week as scheduled Condition at Discharge: Stable Final Diagnosis/Problems List Acute hypoxic respiratory failure due to fluid overload and pulmonary edema Generalized edema Worsening chronic kidney disease Diastolic heart failure Chronic anemia most likely due to chronic kidney disease Type 2 diabetes Hypertension Mixed hyperlipidemia Hyperkalemia Pulmonary edema End-stage kidney disease Discharge Disposition: Home SNF Discharge Will this Physician continue t: No Discharge Statement: "Patient was advised to return to the ER or call 911 if any headaches, dizziness, shortness of breath, chest pain, abdominal pain, bleeding, fevers, or worsening of medical condition. Patient was counseled about treatment plan, medications, possible side effects, patientverbalized understanding. All questions were answered to the best of my ability. This discharge took greater then 30 minutes in planning, reviewing documentation, counseling the patient, and discussing with other team members." ASSESSMENT ASSESSMENT Assessment Date of Service: Nov 28, 2024 Billing Provider: VINITA RICHARDS MD Common Visit Codes: NOT BILLABLE VINITA RICHARDS MD Nov 28, 2024 14:15
[2024-11-28 17:03] VITALS: BP 143/71
== END 2024-11-28 17:35 | disposition home or self-care (01) | DRG 291 ==
LOC: ER 10:28 → EDBD 10:28 → OVERFLOW 15:50 → CENTRAL 17:35 → TELE-CENTR 11-26 09:17
PROVIDERS: ADMIT Internal Medicine Geriatric Medicine; ATTEND Internal Medicine Geriatric Medicine
PROC: 0JH63XZ Insertion of Tunneled Vascular Access Device into Chest Subcutaneous Tissue and Fascia, Percutaneous Approach (ICD-10-PCS; principal; 2024-11-26)
PROC: 02H633Z Insertion of Infusion Device into Right Atrium, Percutaneous Approach (ICD-10-PCS; 2024-11-26)
PROC: B518ZZA Fluoroscopy of Superior Vena Cava, Guidance (ICD-10-PCS; 2024-11-26)
PROC: B548ZZA Ultrasonography of Superior Vena Cava, Guidance (ICD-10-PCS; 2024-11-26)
PROC: 5A1D70Z Performance of Urinary Filtration, Intermittent, Less than 6 Hours Per Day (ICD-10-PCS; 2024-11-28)
DX: I13.2 Hypertensive heart and chronic kidney disease with heart failure and with stage 5 chronic kidney disease, or end stage renal disease (principal); I50.33 Acute on chronic diastolic (congestive) heart failure; J96.01 Acute respiratory failure with hypoxia; N18.6 End stage renal disease; I82.403 Acute embolism and thrombosis of unspecified deep veins of lower extremity, bilateral; E87.20 Acidosis, unspecified; E11.22 Type 2 diabetes mellitus with diabetic chronic kidney disease; E66.9 Obesity, unspecified; E78.2 Mixed hyperlipidemia; I48.91 Unspecified atrial fibrillation; E83.39 Other disorders of phosphorus metabolism; E87.5 Hyperkalemia; D63.1 Anemia in chronic kidney disease; Z79.899 Other long term (current) drug therapy; Z79.84 Long term (current) use of oral hypoglycemic drugs; Z83.3 Family history of diabetes mellitus; Z79.2 Long term (current) use of antibiotics; Z68.30 Body mass index [BMI] 30.0-30.9, adult; Z79.1 Long term (current) use of non-steroidal anti-inflammatories (NSAID); Z79.891 Long term (current) use of opiate analgesic; Z91.148 Patient's other noncompliance with medication regimen for other reason; Z99.2 Dependence on renal dialysis
CPT/HCPCS: 36415; 36558; 71045; 73560; 76775; 77001; 80048; 80053; 81001; 82306; 82962; 83036; 83735; 83880; 83970; 84100; 84484; 85025; 85610; 85730; 86803; 87081; 87340; 90935; 93005; 93970; 94640; 96365; 96375; 99152; C1894; G0378; J1815; J2250; J2405

== ENCOUNTER 2024-12-02 19:34 | Emergency (ER) | payer OTHER, MEDICAID ==
[~2024-12-02] VITALS: Ht 157.5 cm; Wt 78.6 kg
[~2024-12-02 19:34] MED LIST changes: -AMLO1TAB23 PO; -FURO1TAB31 PO; -LISI10TA34 PO; -METF-370 PO; +METO-289 PO; +NIFE1TAB30 PO; -POTA-228 PO
[2024-12-02 20:00] VITALS: BP 111/92; PULSE 74; RESP 20; TEMP 97.4; O2SAT 99
[2024-12-02 20:43] LABS: Basophils # (auto) 0.1 10 ^3/uL (0-0.2); Basophils % (auto) 1.1 % (0.0-2.0); Eosinophils # (auto) 0.2 10 ^3/uL (0-0.8); Eosinophils % (auto) 3.5 % (0.0-7.0); Hematocrit 26.3 % (41.0-53.0); Hemoglobin 8.9 g/dL (13.5-17.5); Lymphocytes % (auto) 15.4 % (10.0-50.0); Mean Corpuscular Hemoglobin 31.7 pg (28.0-32.0); Mean Corpuscular Volume 93.3 fL (80.0-100.0); Monocytes # (auto) 0.4 10 ^3/uL (0-1.3); Monocytes % (auto) 5.5 % (0.0-12.0); Neutrophils % (auto) 74.5 % (37.0-80.0); Platelet Count (auto) 221 10^3/uL (140-450); Red Blood Cells 2.82 10^6/uL (4.5-5.90); Red Cell Distribution Width 15.9 % (11.8-14.3); White Blood Cell 6.8 10^3/uL (4.4-10.8)
[2024-12-02 21:04] LABS: BUN/Creatinine Ratio 13.3 (10.0-20.0); Blood Urea Nitrogen 57 mg/dL (9-23); Calcium 9.5 mg/dL (8.7-10.4); Chloride 108 mmol/L (98-107)
[2024-12-02 21:05] LABS: Anion Gap 9 (5-15); Carbon Dioxide 22 mmol/L (20-31); Glucose 105 mg/dL (74-106); Potassium 4.3 mmol/L (3.5-5.1); Sodium 139 mmol/L (136-145)
--- NOTE | 2024-12-02 21:14 | ED.PDOC ---
History of Present Illness HPI Comments 69 y/o M presents with c/o abdominal pain, nausea, diarrhea, and generalized weakness, today. Patient is a poor historian and endorses on sudden onset of symptoms, all day, today, after starting HD, recently. He comments on attending his first dialysis session on 11/29/24 and missing his second one on 12/01/24. Patient describes pain as "cramping" in quality. He denies any vomiting, constipation, hematochezia, fever, chills, urinary symptoms, or other associated symptoms or modifiers at this time. Per [facility] medical records, patient has a history of acute hypoxic respiratory failure, anemia, CHF, DMII, ESRD w/HD T//TUE, HLD, and HTN. Chief Complaint: Diarrhea Time Seen by MD: 20:45 Primary Care Provider: UNKNOWN Reviewed Notes: Nurses Notes, Medications, Allergies Allergies: Coded Allergies: NO KNOWN ALLERGIES (Unverified , 05/07/18) Home Meds Active Scripts Atorvastatin Calcium (ATORVASTATIN CALCIUM) 20 Mg Tab, 1 TAB PO DAILY, #30 TAB 5 Refills Prov:VINITA RICHARDS MD 11/28/24 Hydralazine HCl (Hydralazine HCl) 25 Mg Tab, 25 MG PO TID, #90 TAB 3 Refills Prov:VINITA RICHARDS MD 11/28/24 Metoprolol Succinate (Metoprolol Succinate Er) 50 Mg Tab, 1 TAB PO BID, #60 TAB 5 Refills Prov:VINITA RICHARDS MD 11/28/24 Nifedipine (Nifedipine Er) 60 Mg Tab, 1 TAB PO DAILY, #30 TAB 5 Refills Prov:VINITA RICHARDS MD 11/28/24 Nifedipine (Nifedipine Er) 30 Mg Tab, 1 TAB PO DAILY for 30 Days, #30 TAB 3 Refills Prov:GLORIA LEYVA NP 08/09/24 Atorvastatin Calcium (ATORVASTATIN CALCIUM) 20 Mg Tab, 20 MG PO HS for 30 Days, #30 TAB 3 Refills Prov:UMA GARNICA MD 12/23/23 Metoprolol Tartrate (LOPRESSOR TABLET) 50 Mg Tb, 50 MG PO BID for 30 Days, #60 TAB 3 Refills Prov:UMA GARNICA MD 12/23/23 Reported Medications Ferrous Sulfate (Ferosul) 325 Mg Tab, 1 TAB PO DAILY 12/20/23 Discontinued Reported Medications Amlodipine Besylate (Amlodipine Besylate) 10 Mg Tab, 1 TAB PO DAILY for 90 Days, #90 08/07/24 Lisinopril (Lisinopril) 10 Mg Tab, 1 TAB PO DAILY 12/20/23 Discontinued Scripts Hydralazine HCl (Hydralazine HCl) 25 Mg Tab, 25 MG PO BID for 30 Days, #60 TAB 3 Refills Prov:GLORIA LEYVA NP 08/09/24 Information Source: Patient Mode of Arrival: Ambulatory Severity: Moderate Timing: Hours Duration: Since onset Prehospital treatment: None Past Medical History PAST MEDICAL HISTORY: Anemia, CHF (diastolic ), CKF, DM (type II), ESRD, High Lipids, HTN Past Medical History (Other): acute hypoxic respiratory failure Surgical History: Denies all surgeries Family History Family History: Reviewed,noncontributory to illness Social History Smoker: Non-Smoker Alcohol: Denies ETOH Use Drugs: Denies Drug Use Lives In: Home Gastrointestinal: reports: abdominal pain, diarrhea, nausea Neurological: reports: weakness All Other Systems: Reviewed and Negative (negative unless otherwise stated above or in HPI) Physical Exam General Appearance: No Apparent Distress, Obese, Other (chronically, ill- appearing ) HEENT: Normal ENT Inspection, Pharynx Normal, TMs Normal Neck: Full Range of Motion, Non-Tender, Normal, Normal Inspection Respiratory: Chest Non-Tender, Lungs Clear, No Accessory Muscle Use, No Respiratory Distress, Normal Breath Sounds Cardiovascular: No Edema, No JVD, No Murmur, No Gallop, Normal Peripheral Pulses, Regular Rate/Rhythm Breast Exam: Deferred Gastrointestinal: No Organomegaly, Non Tender, No Pulsatile Mass, Normal Bowel Sounds, Soft Genitalia: Deferred Pelvic: Deferred Rectal: Deferred Extremities: No calf tenderness, Normal capillary refill, Normal inspection, Normal range of motion, Non-tender, No pedal edema Musculoskeletal : Apperance: Normal Neurologic: Alert, printer apprentice II-XII nml as Tested, No Motor Deficits, Normal Affect, Normal Mood, No Sensory Deficits Cerebellar Function: Normal Reflexes: Normal Skin: Dry, Normal Color, Warm Lymphatic: No Adenopathy Was a procedure done? Was a procedure done?: No Differential Dx Considerations may include: electrolyte imbalance, dehydration, viral syndrome, adverse affect of hemodialysis X-Ray, Labs, Meds, VS Vital Signs Date Time Temp Pulse Resp B/P (MAP) Pulse Ox O2 Delivery O2 Flow Rate FiO2 12/02/24 20:00 97.4 74 20 111/92 (98) 99 97.4 Lab Test 12/02/24 20:20 Range/Units White Blood Count 6.8 4.4-10.8 10^3/uL Red Blood Count 2.82 L 4.5-5.90 10^6/uL Hemoglobin 8.9 L 13.5-17.5 g/dL Hematocrit 26.3 #L 41.0-53.0 % Mean Corpuscular Volume 93.3 80.0-100.0 fL Mean Corpuscular Hemoglobin 31.7 28.0-32.0 pg Mean Corpuscular Hemoglobin Concent 34.0 32.0-36.0 g/dL Red Cell Distribution Width 15.9 H 11.8-14.3 % Platelet Count 221 140-450 10^3/uL Mean Platelet Volume 8.5 6.9-10.8 fL Neutrophils (%) (Auto) 74.5 37.0-80.0 % Lymphocytes (%) (Auto) 15.4 10.0-50.0 % Monocytes (%) (Auto) 5.5 0.0-12.0 % Eosinophils (%) (Auto) 3.5 0.0-7.0 % Basophils (%) (Auto) 1.1 0.0-2.0 % Neutrophils # (Auto) 5.0 1.6-8.6 10 ^3/uL Lymphocytes # (Auto) 1.0 0.4-5.4 10 ^3/uL Monocytes # (Auto) 0.4 0-1.3 10 ^3/uL Eosinophils # (Auto) 0.2 0-0.8 10 ^3/uL Basophils # (Auto) 0.1 0-0.2 10 ^3/uL Nucleated Red Blood Cells 0.0 % Sodium Level Pending Potassium Level Pending Chloride Level Pending Carbon Dioxide Level Pending Anion Gap Pending Blood Urea Nitrogen Pending Creatinine Pending Glomerular Filtration Rate Calc Pending BUN/Creatinine Ratio Pending Serum Glucose Pending Calcium Level Pending Troponin I High Sensitivity Pending B-Type Natriuretic Peptide Pending Time of 1ST Reevaluation: 21:15 Reevaluation 1ST: Unchanged Patient Education/Counseling: Diagnosis, Treatment Family Education/Counseling: Other Additional Information Previous visit documents reviewed: November 25, 2024 encounter for acute on chronic CHF exacerbation The following tests were ordered, and results were reviewed by me: troponin, UA,. BNP, CBC, BMP Additional Information was gathered from interviewing the following independent historians: n/a I reviewed and agreed with the following test results read by other providers: n/a I discussed treatment and results with medical personnel and: Patient Critical Care Note Critical Care Time?: No Stability Stability form required: No Heart Score Heart Score: Heart Score Response (Comments) Value History N/A 0 EKG N/A 0 Age N/A 0 Risk Factors N/A 0 Troponin N/A 0 Total 0 I personally scribed for MICHAEL KING MD ([email or web address]) on 12/02/24 at 21:14. Electronically submitted by Gene Allen [email or web address]). MICHAEL KING MD Dec 02, 2024 21:14
== END 2024-12-03 02:31 | disposition left against medical advice (07) ==
LOC: ER 19:34
DX: R10.84 Generalized abdominal pain (principal); R11.0 Nausea; R19.7 Diarrhea, unspecified; R53.1 Weakness; E11.22 Type 2 diabetes mellitus with diabetic chronic kidney disease; I13.2 Hypertensive heart and chronic kidney disease with heart failure and with stage 5 chronic kidney disease, or end stage renal disease; I50.32 Chronic diastolic (congestive) heart failure; N18.6 End stage renal disease; E78.5 Hyperlipidemia, unspecified; Z79.899 Other long term (current) drug therapy
CPT/HCPCS: 36415; 80048; 83880; 84484; 85025

== ENCOUNTER 2024-12-06 10:12 | Emergency (ER) | payer OTHER, MEDICAID ==
[~2024-12-06] VITALS: Ht 162.6 cm; Wt 74.7 kg
--- NOTE | 2024-12-06 10:30 | ED.PDOC ---
Back pain HPI HPI Comments 69y M who presents to the ED for chief complaint of Rib pain. Pt had the following course of events: - pt states he had fall last night while attempting to lift firewood in residence, - pt denies any associated loss of consciousness after fall,but has noted pain on the L side of rib age, constant, non-radiating pain - pt states in the ED, he is having pain on the L side of his rib cage, with noted increased pain with deep inspiration - pt denies use of any current blood thinner at this time - pt states he is currently on dialysis and received dialysis 1 days prior -pt otherwise denies chest pain, shortness of breath, diaphoresis, palpitations, or any associated symptoms at this time. Patient denies any head or neck injury. PMH: ESRD on dialysis M,W, F, hypertension, DM 2, hyperlipidemia, CHF PSH: denies Allergies: nkda Social history: denies tobacco use, denies ETOH use, denies drug use, HPI: Poor Historian. REVIEW OF SYSTEMS: CONSTITUTIONAL: Denies acute: fever, diaphoresis, chills, generalized weakness. HEAD: Denies acute: headache, photophobia Eyes: Denies acute: Double vision, vision loss, eye pain, eye discharge. EARS: Denies acute: tinnitus, hearing loss, ear discharge, ear pain, THROAT: Denies acute: sore throat, swelling, difficulty swallowing , pain with swallowing, change in voice. NECK: Denies acute: neck pain, neck swelling, stiff neck. HEART: Denies acute : chest pain, palpitations, LUNGS: Denies acute: SOB, wheezing, cough, hemoptysis ABDOMEN: Denies acute: abdominal pain, Nausea, Vomiting, diarrhea, melena , hematemesis, hematochezia SKIN: Denies acute: rash, redness, lesions, itchiness. EXTREMITIES: Denies acute: calf pain, numbness, tingling, weakness, denies pain in extremity. Denies acute: Low back pain. Neuro: Denies acute: focal neurological deficit, motor or sensory focal neurological deficit, tremors, seizure like activity, confusion, dizziness, change in mental status, loss of bowel or bladder function, cauda equina like symptoms. : Denies acute: dysuria, hematuria, flank pain, increase in urinary frequency. PSYCH: Denies acute: hallucination, suicidal ideation, homicidal ideation. PHYSICAL EXAM: General: [id number] acute distress, awake and alert. Head: normocephalic, atraumatic. Neck: supple, trachea is midline, no swelling. Throat: Normal phonation. Eyes:, no erythema, no purulent discharge, no proptosis, no icterus. Heart: regular rate, regular rhythm, no significant murmur appreciated. Lungs: no apparent respiratory distress, Able to speak in full sentences. No wheezing, no rhonchi, no crackles. No stridors Clear to auscultation bilaterally. Abdomen: non tender to palpation, non distended, soft, no guarding, no rebound, + bowel sounds. Noted left ribcage at the mid axillary line at the lower part of the ribcage: A swelling that is tender to palpation. No erythema or discoloration noted. No appreciated crepitus. Patient area of complaint is very localized. Neuro: Awake, Alert, oriented to name, self, situation, follows commands GCS=15. Speech is normal. Skin: no petechia, no purpura, no cyanosis, non-pale, not jaundice. Lower extremities: --trace bilateral - Pitting edema no deformity, no focal swelling, no calf TTP. Makes eye contact. moves all four extremities. Face: no apparent facial droop. Ambulating in the ED independently. ED COURSE: Chief Complaint: Rib Pain Time Seen by MD: 10:45 Primary Care Provider: UNKNOWN Reviewed Notes: Nurses Notes, Medications, Allergies Allergies: Coded Allergies: NO KNOWN ALLERGIES (Unverified , 05/07/18) Home Meds Active Scripts Atorvastatin Calcium (ATORVASTATIN CALCIUM) 20 Mg Tab, 1 TAB PO DAILY, #30 TAB 5 Refills Prov:VINITA RICHARDS MD 11/28/24 Hydralazine HCl (Hydralazine HCl) 25 Mg Tab, 25 MG PO TID, #90 TAB 3 Refills Prov:VINITA RICHARDS MD 11/28/24 Metoprolol Succinate (Metoprolol Succinate Er) 50 Mg Tab, 1 TAB PO BID, #60 TAB 5 Refills Prov:VINITA RICHARDS MD 11/28/24 Nifedipine (Nifedipine Er) 60 Mg Tab, 1 TAB PO DAILY, #30 TAB 5 Refills Prov:VINITA RICHARDS MD 11/28/24 Nifedipine (Nifedipine Er) 30 Mg Tab, 1 TAB PO DAILY for 30 Days, #30 TAB 3 Refills Prov:GLORIA LEYVA NP 08/09/24 Atorvastatin Calcium (ATORVASTATIN CALCIUM) 20 Mg Tab, 20 MG PO HS for 30 Days, #30 TAB 3 Refills Prov:UMA GARNICA MD 12/23/23 Metoprolol Tartrate (LOPRESSOR TABLET) 50 Mg Tb, 50 MG PO BID for 30 Days, #60 TAB 3 Refills Prov:UMA GARNICA MD 12/23/23 Reported Medications Ferrous Sulfate (Ferosul) 325 Mg Tab, 1 TAB PO DAILY 12/20/23 Information Source: Patient Mode of Arrival: Ambulatory Brought in by: self Past Medical History PAST MEDICAL HISTORY: Anemia, CHF, CKF, DM, ESRD, High Lipids, HTN Surgical History: Denies all surgeries Family History Family History: Reviewed,noncontributory to illness Social History Smoker: Non-Smoker Alcohol: Denies ETOH Use Drugs: Denies Drug Use Lives In: Home Was a procedure done? Was a procedure done?: No Back Pain Differential Dx Differential Diagnosis: Fracture, Musculoskeletal Pain, Other (Pneumothorax, cardiac contusion, pulmonary contusion, hematoma) X-Ray, Labs, Meds, VS Vital Signs Date Time Temp Pulse Resp B/P (MAP) Pulse Ox O2 Delivery O2 Flow Rate FiO2 12/06/24 11:50 72 17 100 Room Air 12/06/24 11:50 97.7 72 17 149/64 (92) 100 97.7 12/06/24 10:18 97.6 64 20 147/44 (78) 100 97.6 Lab Test 12/06/24 10:30 Range/Units White Blood Count 8.1 4.4-10.8 10^3/uL Red Blood Count 2.67 L 4.5-5.90 10^6/uL Hemoglobin 8.6 L 13.5-17.5 g/dL Hematocrit 25.0 L 41.0-53.0 % Mean Corpuscular Volume 93.7 80.0-100.0 fL Mean Corpuscular Hemoglobin 32.2 H 28.0-32.0 pg Mean Corpuscular Hemoglobin Concent 34.4 32.0-36.0 g/dL Red Cell Distribution Width 15.8 H 11.8-14.3 % Platelet Count 211 140-450 10^3/uL Mean Platelet Volume 8.1 6.9-10.8 fL Neutrophils (%) (Auto) 78.0 37.0-80.0 % Lymphocytes (%) (Auto) 14.2 10.0-50.0 % Monocytes (%) (Auto) 5.8 0.0-12.0 % Eosinophils (%) (Auto) 1.1 0.0-7.0 % Basophils (%) (Auto) 0.9 0.0-2.0 % Neutrophils # (Auto) 6.3 1.6-8.6 10 ^3/uL Lymphocytes # (Auto) 1.1 0.4-5.4 10 ^3/uL Monocytes # (Auto) 0.5 0-1.3 10 ^3/uL Eosinophils # (Auto) 0.1 0-0.8 10 ^3/uL Basophils # (Auto) 0.1 0-0.2 10 ^3/uL Nucleated Red Blood Cells 0.0 % Prothrombin Time 10.7 9.3-11.8 sec Prothrombin Time INR 1.01 0.9-1.15 Activated Partial Thromboplast Time 31.7 24.5-34.5 SEC Sodium Level 143 136-145 mmol/L Potassium Level 3.6 3.5-5.1 mmol/L Chloride Level 106 98-107 mmol/L Carbon Dioxide Level 29 20-31 mmol/L Anion Gap 8 5-15 Blood Urea Nitrogen 17 9-23 mg/dL Creatinine 2.59 H 0.700-1.30 mg/dL Glomerular Filtration Rate Calc 26 >90 mL/min BUN/Creatinine Ratio 6.6 L 10.0-20.0 Serum Glucose 84 74-106 mg/dL Calcium Level 8.9 8.7-10.4 mg/dL Total Bilirubin 0.6 0.2-1.0 mg/dL Aspartate Amino Transferase (AST) 58 H 13-40 U/L Alanine Aminotransferase (ALT) 30 7-40 U/L Alkaline Phosphatase 83 46-116 U/L Troponin I High Sensitivity 19 </=54 ng/L Total Protein 6.6 5.7-8.2 g/dL Albumin 4.1 3.2-4.8 g/dL [facility] [id number] [place] [id number] Ph: [phone] DIAGNOSTIC IMAGING Diagnostic Imaging Report : [id number] Signed PATIENT: HILTON COLEMAN AACCT: [id number] UNIT: [id number] : 12/08/1954 LOC: ER ROOM / BED: / AGE / SEX: 69 / M ADM STATUS: REG ER SERVICE 1030 ORDERING PHYSICIAN: SHANTE SCHULZ DO PROCEDURE(s): CTCAP - CHST AB PEL WO CON-NO IV/ORAL REASON: RIB PAIN; S/P FALL ORDER NUMBER(s): [id number], ACCESSION NUMBER(s): [id number] CT CHST AB PEL WO CON-NO IV/ORAL INDICATION: RIB PAIN; S/P FALL EXAM DATE: 12/06/2024 10:38 AM COMPARISON: CT CHST AB PEL WO CON-NO IV/ORAL on DOS: 12/19/23 RADIATION DOSE: CTDIvol: 7 mGy, DLP: 543 mGy*cm PROCEDURE: Helical CT images were obtained of the chest, abdomen, and pelvis without intravenous contrast. Sagittal and coronal reconstructions are provided. ORAL CONTRAST: None. ADDITIONAL IMAGES / REFORMATS: None All CT scans at this medical facility are performed using dose modulation techniques as appropriate to a performed exam including the following: Automated exposure control was utilized; adjustment of the MA and/or KV according to patient size; and use of iterative reconstruction technique. FINDINGS: CHEST: BONES: Nondisplaced fracture of the left posterior 8, 9 ribs. CHEST WALL: Normal. SOFT TISSUES:A hemodialysis catheter is seen. MEDIASTINUM: Normal. HEART: Normal. VESSELS: Normal. LYMPH NODES: Normal. PLEURA: Normal. AIRWAYS: Normal. LUNG: Bilateral subpleural scarring. ABDOMEN AND PELVIS: BONES: Normal LIVER: 1.4 cm liver cyst. GALLBLADDER AND BILIARY TREE: Distended with gallstones. No intra- or extrahepatic biliary ductal dilation. PANCREAS: Normal. SPLEEN: 1.3 cm hypodense spleen cystic lesion. BOWEL: Moderate colonic diverticulosis. Normal appendix. ADRENALS: Normal. KIDNEYS AND URETER: Bilateral nonobstructive kidney stones. BLADDER: Decompressed with thickened green. REPRODUCTIVE ORGANS: Normal. LYMPH NODES:No lymphadenopathy. PERITONEUM: No ascites or free air. No other fluid collection. VESSELS: Normal RETROPERITONEUM: Normal. ABDOMINAL WALL: Edematous. IMPRESSION: No acute intrathoracic or intraabdominal abnormality. Nondisplaced fracture of the left posterior 8, 9 ribs. Cholelithiasis. Moderate colonic diverticulosis. ATED BY: SATHISH CHAIDEZ MD DICTATED DATE/TIME: 12/06/24 1108 SIGNED BY: SATHISH CHAIDEZ MD SIGNED DATE/TIME: 12/06/24 1108 CC: Time of 1ST Reevaluation: 00:00 Reevaluation 1ST: Unchanged Patient Education/Counseling: Diagnosis, Treatment Family Education/Counseling: No Family Present Comments Patient presented with the above HPI.-ribcage pain----workup was initiated. patient was found with the above mentioned diagnosis. the following medications were ordered: please refer to order lists of meds and tests obtained by myself Dr. Schulz. Patient ED course and VS have been stabilized. Patient has been reassessed in the ED and remained in a stable condition. Pertinent incidental findings were discussed with the patient and/or family. Patient/family voices understanding and is agreeable with plan. Patient has been observed in the ED adequate length of time to insure improvement/stability. Escalation of care considered: Consideration of escalation to observation or admission Incentive spirometry was ordered for the patient. Patient was DISCHARGED home in a stable condition. All the reports of any imaging studies that were ordered by myself were reviewed by myself. Departure 1 Departure Time of Disposition: 11:24 Impression: Primary Impression: Rib fractures Additional Impression: Hematoma Disposition: 01 HOME / SELF CARE / HOMELESS Condition: Stable Additional Instructions: Additional discharge instructions: You MUST follow-up with your primary care/family doctor in 1 to 2 days. If you are unable to see your primary care/family doctor, please return to our emergency room for re-assessment and re-evaluation in 1 to 2 days. Return to the emergency room here in our facility or to the nearest ER [facility] if your symptoms change or worsen. CONSULTATIONS: you MUST Follow-up for consultation as soon as possible with: -Cardiothoracic surgeon in 1-2 days. Please call for appointment. You MUST call the consultants office yourself to make an appointment. You may need to arrange that through your insurance and/or your primary/family doctor. If you are unable to see the delivery consultant in 1 to 2 days, you must return to our emergency room (or any other ER of your choice) for re-assessment and re- evaluation. Adequate fluid hydration. Use incentive spirometry as instructed. Below is a copy of your radiological report for follow up: [address] [address] Ph: [phone] DIAGNOSTIC IMAGING Diagnostic Imaging Report : [id number] Signed PATIENT: HILTON COLEMAN ACCT: [id number] UNIT: [id number] : 12/08/1954 LOC: ER ROOM / BED: / AGE / SEX: 69 / M ADM STATUS: REG ER SERVICE 1030 ORDERING PHYSICIAN: SHANTE SCHULZ DO PROCEDURE(s): CTCAP - CHST AB PEL WO CON-NO IV/ORAL REASON: RIB PAIN; S/P FALL ORDER NUMBER(s): [id number], ACCESSION NUMBER(s): [id number] CT CHST AB PEL WO CON-NO IV/ORAL INDICATION: RIB PAIN; S/P FALL EXAM DATE: 12/06/2024 10:38 AM COMPARISON: CT CHST AB PEL WO CON-NO IV/ORAL on DOS: 12/19/23 RADIATION DOSE: CTDIvol: 7 mGy, DLP: 543 mGy*cm PROCEDURE: Helical CT images were obtained of the chest, abdomen, and pelvis without intravenous contrast. Sagittal and coronal reconstructions are provided. ORAL CONTRAST: None. ADDITIONAL IMAGES / REFORMATS: None All CT scans at this medical facility are performed using dose modulation techniques as appropriate to a performed exam including the following: Automated exposure control was utilized; adjustment of the MA and/or KV according to patient size; and use of iterative reconstruction technique. FINDINGS: CHEST: BONES: Nondisplaced fracture of the left posterior 8, 9 ribs. CHEST WALL: Normal. SOFT TISSUES:A hemodialysis catheter is seen. MEDIASTINUM: Normal. HEART: Normal. VESSELS: Normal. LYMPH NODES: Normal. PLEURA: Normal. AIRWAYS: Normal. LUNG: Bilateral subpleural scarring. ABDOMEN AND PELVIS: BONES: Normal LIVER: 1.4 cm liver cyst. GALLBLADDER AND BILIARY TREE: Distended with gallstones. No intra- or extrahepatic biliary ductal dilation. PANCREAS: Normal. SPLEEN: 1.3 cm hypodense spleen cystic lesion. BOWEL: Moderate colonic diverticulosis. Normal appendix. ADRENALS: Normal. KIDNEYS AND URETER: Bilateral nonobstructive kidney stones. BLADDER: Decompressed with thickened green. REPRODUCTIVE ORGANS: Normal. LYMPH NODES:No lymphadenopathy. PERITONEUM: No ascites or free air. No other fluid collection. VESSELS: Normal RETROPERITONEUM: Normal. ABDOMINAL WALL: Edematous. IMPRESSION: No acute intrathoracic or intraabdominal abnormality. Nondisplaced fracture of the left posterior 8, 9 ribs. Cholelithiasis. Moderate colonic diverticulosis. ATED BY: SATHISH CHAIDEZ MD DICTATED DATE/TIME: 12/06/24 1108 SIGNED BY: SATHISH CHAIDEZ MD SIGNED DATE/TIME: 12/06/24 1108 CC: Discharged With: Self Critical Care Note Critical Care Time?: No I personally scribed for SHANTE SCHULZ DO ([email or web address]) on 12/06/24 at 10:30. Electronically submitted by Lee Cazares ([facility] I personally scribed for SHANTE SCHULZ DO ([email or web address]) on 12/06/24 at 10:46. Electronically submitted by Lee Cazares ([employer]). I personally scribed for SHANTE SCHULZ DO ([email or web address]) on 12/06/24 at 10:52. Electronically submitted by Lee Cazares ([facility]). I personally scribed for SHANTE SCHULZ DO ([email or web address]) on 12/06/24 at 11:28. Electronically submitted by Lee Cazares ([facility]). SHANTE SCHULZ DO Dec 06, 2024 10:30
[2024-12-06 10:42] LABS: Basophils # (auto) 0.1 10 ^3/uL (0-0.2); Basophils % (auto) 0.9 % (0.0-2.0); Eosinophils # (auto) 0.1 10 ^3/uL (0-0.8); Eosinophils % (auto) 1.1 % (0.0-7.0); Hemoglobin 8.6 g/dL (13.5-17.5); Lymphocytes # (auto) 1.1 10 ^3/uL (0.4-5.4); Lymphocytes % (auto) 14.2 % (10.0-50.0); Mean Corpuscular Hemoglobin 32.2 pg (28.0-32.0); Mean Corpuscular Hgb Conc. 34.4 g/dL (32.0-36.0); Mean Corpuscular Volume 93.7 fL (80.0-100.0); Monocytes # (auto) 0.5 10 ^3/uL (0-1.3); Monocytes % (auto) 5.8 % (0.0-12.0); Neutrophils # (auto) 6.3 10 ^3/uL (1.6-8.6); Platelet Count (auto) 211 10^3/uL (140-450); Red Blood Cells 2.67 10^6/uL (4.5-5.90); Red Cell Distribution Width 15.8 % (11.8-14.3); White Blood Cell 8.1 10^3/uL (4.4-10.8)
[2024-12-06 10:58] LABS: Alanine Aminotransferase 30 U/L (7-40); Albumin 4.1 g/dL (3.2-4.8); Alkaline Phosphatase 83 U/L (46-116); Anion Gap 8 (5-15); BUN/Creatinine Ratio 6.6 (10.0-20.0); Blood Urea Nitrogen 17 mg/dL (9-23); Calcium 8.9 mg/dL (8.7-10.4); Carbon Dioxide 29 mmol/L (20-31); Chloride 106 mmol/L (98-107); Glucose 84 mg/dL (74-106); Potassium 3.6 mmol/L (3.5-5.1); Sodium 143 mmol/L (136-145); Total Protein 6.6 g/dL (5.7-8.2)
[2024-12-06 10:59] LABS: Aspartate Aminotransferase 58 U/L (13-40); Bilirubin, Total 0.6 mg/dL (0.2-1.0)
--- NOTE | 2024-12-06 11:10 | DVH ---
CT CHST AB PEL WO CON-NO IV/ORAL INDICATION: RIB PAIN; S/P FALL EXAM DATE: 12/06/2024 10:38 AM COMPARISON: CT CHST AB PEL WO CON-NO IV/ORAL on DOS: 12/19/23 RADIATION DOSE: CTDIvol: 7 mGy, DLP: 543 mGy*cm PROCEDURE: Helical CT images were obtained of the chest, abdomen, and pelvis without intravenous cont rast. Sagittal and coronal reconstructions are provided. ORAL CONTRAST: None. ADDITIONAL IMAGES / REFORMATS: None All CT scans at this medical facility are performed using dose modulation techniques as appropriate t o a performed exam including the following: Automated exposure control was utilized; adjustment of th e MA and/or KV according to patient size; and use of iterative reconstruction technique. FINDINGS: CHEST: BONES: Nondisplaced fracture of the left posterior 8, 9 ribs. CHEST WALL: Normal. SOFT TISSUES:A hemodialysis catheter is seen. MEDIASTINUM: Normal. HEART: Normal. VESSELS: Normal. LYMPH NODES: Normal. PLEURA: Normal. AIRWAYS: Normal. LUNG: Bilateral subpleural scarring. ABDOMEN AND PELVIS: BONES: Normal LIVER: 1.4 cm liver cyst. GALLBLADDER AND BILIARY TREE: Distended with gallstones. No intra- or extrahepatic biliary ductal dil ation. PANCREAS: Normal. SPLEEN: 1.3 cm hypodense spleen cystic lesion. BOWEL: Moderate colonic diverticulosis. Normal appendix. ADRENALS: Normal. KIDNEYS AND URETER: Bilateral nonobstructive kidney stones. BLADDER: Decompressed with thickened green. REPRODUCTIVE ORGANS: Normal. LYMPH NODES:No lymphadenopathy. PERITONEUM: No ascites or free air. No other fluid collection. VESSELS: Normal RETROPERITONEUM: Normal. ABDOMINAL WALL: Edematous. IMPRESSION: No acute intrathoracic or intraabdominal abnormality. Nondisplaced fracture of the left posterior 8, 9 ribs. Cholelithiasis. Moderate colonic diverticulosis.
[2024-12-06 11:21] LABS: INR 1.01 (0.9-1.15); Partial Thromboplastin Time 31.7 SEC (24.5-34.5); Prothrombin Time 10.7 sec (9.3-11.8)
[2024-12-06 11:50] VITALS: BP 149/64; PULSE 72; RESP 17; TEMP 97.7; O2SAT 100
== END 2024-12-06 11:53 | disposition home or self-care (01) ==
LOC: ER 10:12
DX: S22.42XA Multiple fractures of ribs, left side, initial encounter for closed fracture (principal); I13.2 Hypertensive heart and chronic kidney disease with heart failure and with stage 5 chronic kidney disease, or end stage renal disease; I50.9 Heart failure, unspecified; E11.22 Type 2 diabetes mellitus with diabetic chronic kidney disease; N18.6 End stage renal disease; E78.5 Hyperlipidemia, unspecified; Z99.2 Dependence on renal dialysis; Z79.899 Other long term (current) drug therapy; X58.XXXA Exposure to other specified factors, initial encounter; Y93.89 Activity, other specified; Y92.89 Other specified places as the place of occurrence of the external cause; Y99.8 Other external cause status
CPT/HCPCS: 36415; 71250; 74176; 80053; 84484; 85025; 85610; 85730

== ENCOUNTER 2025-02-14 18:25 | Inpatient (IN) | payer OTHER, MEDICAID ==
[~2025-02-14] VITALS: Ht 162.6 cm; Wt 74.3 kg
--- NOTE | 2025-02-14 18:43 | ED.PDOC ---
SOB-HPI HPI Comments HPI: Poor Historian. 70-year-old male presents to emergency department for evaluation of generalized weakness and dizziness and shortness of breath and leg edema. Patient missed his dialysis for a whole week because of insurance. He stopped taking his Lasix a month ago because he can not afford it. Last dialysis session was this past Tuesday. Patient still makes urine. Past Medical History: End-stage renal disease on hemodialysis, diabetes, hypert ension. Past Surgical History: Dialysis catheter on right anterior chest wall. REVIEW OF SYSTEMS: CONSTITUTIONAL: Denies acute: fever, diaphoresis, chills, HEAD: Denies acute: headache, photophobia Eyes: Denies acute: Double vision, vision loss, eye pain, eye discharge. EARS: Denies acute: tinnitus, hearing loss, ear discharge, ear pain, THROAT: Denies acute: sore throat, swelling, difficulty swallowing , pain with swallowing, change in voice. NECK: Denies acute: neck pain, neck swelling, stiff neck. HEART: Denies acute : chest pain, palpitations, LUNGS: Denies acute: wheezing, cough, hemoptysis ABDOMEN: Denies acute: abdominal pain, Nausea, Vomiting, diarrhea, melena , hematemesis, hematochezia SKIN: Denies acute: rash, redness, lesions, itchiness. EXTREMITIES: Denies acute: calf pain, numbness, tingling, weakness, denies pain in extremity. Denies acute: Low back pain. Neuro: Denies acute: focal neurological deficit, motor or sensory focal neurological deficit, tremors, seizure like activity, confusion, change in mental status, loss of bowel or bladder function, cauda equina like symptoms. : Denies acute: dysuria, hematuria, flank pain, increase in urinary frequency. PSYCH: Denies acute: hallucination, suicidal ideation, homicidal ideation. PHYSICAL EXAM: General: ----[id number]----acute distress, awake and alert. Head: normocephalic, atraumatic. Neck: supple, trachea is midline, no swelling. Throat: Normal phonation. Eyes:, no erythema, no purulent discharge, no proptosis, no icterus. Heart: regular rate, regular rhythm, no significant murmur appreciated. Lungs: no apparent respiratory distress, Able to speak in full sentences. No wheezing, no rhonchi, no crackles. No stridors Clear to auscultation bilaterally. Abdomen: non tender to palpation, non distended, soft, no guarding, no rebound, + bowel sounds. Neuro: Awake, Alert, oriented to name, self, situation, follows commands GCS=15. Speech is normal. Skin: no petechia, no purpura, no cyanosis, non-pale, not jaundice. Lower extremities: --3/4 b/l - Pitting edema no deformity, no focal swelling, no calf TTP. Makes eye contact. moves all four extremities. Face: no apparent facial droop. Ambulating in the ED independently. ED COURSE: Chief Complaint: General Weakness Time Seen by MD: 18:30 Primary Care Provider: DENIES Reviewed notes: Nurses Notes, Allergies Information Source: Patient Past Medical History PAST MEDICAL HISTORY: Anemia, CHF, CKF, DM, ESRD, High Lipids, HTN Surgical History: Denies all surgeries Family History Family History: Reviewed,noncontributory to illness Social History Smoker: Non-Smoker Alcohol: Denies ETOH Use Drugs: Denies Drug Use Lives In: Home Was a procedure done? Was a procedure done?: No Differential Dx Differential Diagnosis: Other (DDx include ACS, unstable angina, anxiety, PE, pneumothroax, neoplasm, cardiac ischemia, COPD, asthma, CHF, pleural effusion, tobacco abuse, pneumonia, hypoxia, hypercapnia, anemia., infection/sepsis., pulmonary edema. Asthma, Cardiac tamponade, infection.) X-Ray, Labs, Meds, VS Vital Signs Date Time Temp Pulse Resp B/P (MAP) Pulse Ox O2 Delivery O2 Flow Rate FiO2 02/14/25 21:00 60 14 182/78 (112) 98 02/14/25 19:23 162/67 02/14/25 19:10 98.4 61 14 162/67 (98) 98 98.4 02/14/25 19:10 Room Air* 0 21 02/14/25 18:45 69 02/14/25 18:37 98.7 74 16 181/76 (111) 98 98.7 Lab Test 02/14/25 19:55 02/14/25 18:51 02/14/25 18:42 Range/Units Troponin I High Sensitivity 37 42 </=54 ng/L White Blood Count 6.5 4.4-10.8 10^3/uL Red Blood Count 2.86 L 4.5-5.90 10^6/uL Hemoglobin 9.2 L 13.5-17.5 g/dL Hematocrit 27.6 L 41.0-53.0 % Mean Corpuscular Volume 96.5 80.0-100.0 fL Mean Corpuscular Hemoglobin 32.3 H 28.0-32.0 pg Mean Corpuscular Hemoglobin Concent 33.5 32.0-36.0 g/dL Red Cell Distribution Width 15.0 H 11.8-14.3 % Platelet Count 168 140-450 10^3/uL Mean Platelet Volume 8.3 6.9-10.8 fL Neutrophils (%) (Auto) 72.6 37.0-80.0 % Lymphocytes (%) (Auto) 17.5 10.0-50.0 % Monocytes (%) (Auto) 6.5 0.0-12.0 % Eosinophils (%) (Auto) 2.7 0.0-7.0 % Basophils (%) (Auto) 0.7 0.0-2.0 % Neutrophils # (Auto) 4.7 1.6-8.6 10 ^3/uL Lymphocytes # (Auto) 1.1 0.4-5.4 10 ^3/uL Monocytes # (Auto) 0.4 0-1.3 10 ^3/uL Eosinophils # (Auto) 0.2 0-0.8 10 ^3/uL Basophils # (Auto) 0 0-0.2 10 ^3/uL Nucleated Red Blood Cells 0.0 % Sodium Level 142 136-145 mmol/L Potassium Level 4.7 3.5-5.1 mmol/L Chloride Level 110 H 98-107 mmol/L Carbon Dioxide Level 20 20-31 mmol/L Anion Gap 12 5-15 Blood Urea Nitrogen 75 H 9-23 mg/dL Creatinine 6.44 H 0.700-1.30 mg/dL Glomerular Filtration Rate Calc 9 >90 mL/min BUN/Creatinine Ratio 11.6 10.0-20.0 Serum Glucose 103 74-106 mg/dL Lactic Acid Level 0.6 0.4-2.0 mmol/L Calcium Level 8.9 8.7-10.4 mg/dL Phosphorus Level 7.4 H 2.4-5.1 mg/dL Total Bilirubin 0.4 0.2-1.0 mg/dL Aspartate Amino Transferase (AST) 18 13-40 U/L Alanine Aminotransferase (ALT) 12 7-40 U/L Alkaline Phosphatase 115 46-116 U/L B-Type Natriuretic Peptide 985.66 0-100 pg/mL Total Protein 6.5 5.7-8.2 g/dL Albumin 3.9 3.2-4.8 g/dL Thyroid Stimulating Hormone (TSH) 2.93 0.55-4.78 uIU/mL POC Glucose 96 70-106 mg/dl Current Medications Medications (Trade) Dose Ordered Sig/Scott Route Start Time Stop Time Status Last Admin Furosemide (Lasix Injection) 80 mg ONCE ONCE IV 02/14/25 18:45 02/14/25 18:46 DC 02/14/25 19:23 [place] [id number] Ph: [phone] DIAGNOSTIC IMAGING Diagnostic Imaging Report : [id number] Signed PATIENT: HILTON COLEMAN AACCT: [id number] UNIT: [id number] : 12/08/1954 LOC: ER ROOM / BED: / AGE / SEX: 70 / M ADM STATUS: REG ER SERVICE 38 ORDERING PHYSICIAN: SHANTE SCHULZ DO PROCEDURE(s): CXRP - CHEST PORTABLE REASON: weak, dizzy, sob, leg edema, missed HD ORDER NUMBER(s): [id number], ACCESSION NUMBER(s): [id number] CHEST RADIOGRAPH Indication: weak, dizzy, sob, leg edema, missed HD Technique: Single frontal view of the chest was obtained Comparison: XY CHEST PORTABLE on DOS: 11/25/24, XY CHEST PORTABLE on DOS: 08/06/24, XY CHEST PORTABLE on DOS: 01/03/24 FINDINGS: Lines and Tubes: Hemodialysis catheter from the right internal jugular vein with the tip at the cavoatrial junction or within the right atrium. Lungs: No focal consolidation. Pleura: No effusion. No pneumothorax. Cardiomediastinal contours: Unremarkable Bones: No acute osseous abnormality. IMPRESSION: 1. Right internal jugular catheter in place in the right atrium or cavoatrial junction. 2. No significant cardiopulmonary findings from 11/25/2024. ATED BY: XOCHITL ELLIOTT Jr., DO DICTATED DATE/TIME: 02/14/251918 SIGNED BY: XOCHITL ELLIOTT Jr., SIGNED DATE/TIME: 02/14/251918 CC: Time of 1ST Reevaluation: 00:54 Reevaluation 1ST: Improved Patient Education/Counseling: Diagnosis, Treatment Family Education/Counseling: Other Comments Patient presented with the above HPI.-dyspnea weakness dizziness volume overload-----workup was initiated. patient was found with the above mentioned diagnosis. the following medications were ordered: please refer to order lists of meds and tests obtained by myself Dr. Schulz. Patient ED course and VS have been stabilized. Patient has been reassessed in the ED and remained in a stable condition. Pertinent incidental findings were discussed with the patient and/or family. Patient/family voices understanding and is agreeable with plan. Patient has been observed in the ED adequate length of time to insure improvement/stability. Escalation of care considered: Consideration of escalation to observation or admission Patient was given Lasix. Patient was ADMITTED to the medicine team for further evaluation and treatment of their presentation. All the reports of any imaging studies that were ordered by myself were reviewed by myself. Departure 1 Departure Time of Disposition: 18:42 Impression: Primary Impression: Missed dialysis Additional Impressions: End-stage renal disease on hemodialysis Dyspnea Disposition: ADMITTED INPATIENT Admit to: Tele Condition: Guarded Discharged With: Self Critical Care Note Critical Care Time?: Yes (35 min-critical care time only) Heart Score Heart Score: Heart Score Response (Comments) Value History Slightly Suspicious 0 EKG Normal 0 Age >65 2 Risk Factors 1 or 2 risk factors 1 Troponin Normal limit 0 Total 3 SHANTE SCHULZ DO February 14, 2025 18:43
[2025-02-14 19:12] LABS: Basophils # (auto) 0 10 ^3/uL (0-0.2); Basophils % (auto) 0.7 % (0.0-2.0); Eosinophils # (auto) 0.2 10 ^3/uL (0-0.8); Eosinophils % (auto) 2.7 % (0.0-7.0); Hematocrit 27.6 % (41.0-53.0); Hemoglobin 9.2 g/dL (13.5-17.5); Lymphocytes # (auto) 1.1 10 ^3/uL (0.4-5.4); Lymphocytes % (auto) 17.5 % (10.0-50.0); Mean Corpuscular Hemoglobin 32.3 pg (28.0-32.0); Mean Corpuscular Hgb Conc. 33.5 g/dL (32.0-36.0); Mean Corpuscular Volume 96.5 fL (80.0-100.0); Monocytes # (auto) 0.4 10 ^3/uL (0-1.3); Monocytes % (auto) 6.5 % (0.0-12.0); Neutrophils # (auto) 4.7 10 ^3/uL (1.6-8.6); Neutrophils % (auto) 72.6 % (37.0-80.0); Platelet Count (auto) 168 10^3/uL (140-450); Red Blood Cells 2.86 10^6/uL (4.5-5.90); White Blood Cell 6.5 10^3/uL (4.4-10.8)
--- NOTE | 2025-02-14 19:22 | DVH ---
CHEST RADIOGRAPH Indication: weak, dizzy, sob, leg edema, missed HD Technique: Single frontal view of the chest was obtained Comparison: XY CHEST PORTABLE on DOS: 11/25/24, XY CHEST PORTABLE on DOS: 08/06/24, XY CHEST PORTABLE o n DOS: 01/03/24 FINDINGS: Lines and Tubes: Hemodialysis catheter from the right internal jugular vein with the tip at the cavoa trial junction or within the right atrium. Lungs: No focal consolidation. Pleura: No effusion. No pneumothorax. Cardiomediastinal contours: Unremarkable Bones: No acute osseous abnormality. IMPRESSION: 1. Right internal jugular catheter in place in the right atrium or cavoatrial junction. 2. No significant cardiopulmonary findings from 11/25/2024.
[2025-02-14] MEDS: FUROSEMIDE 100 MG/10ML VIAL IV ONE (19:23)
[2025-02-14 19:31] LABS: Alanine Aminotransferase 12 U/L (7-40); Albumin 3.9 g/dL (3.2-4.8); Alkaline Phosphatase 115 U/L (46-116); Anion Gap 12 (5-15); Aspartate Aminotransferase 18 U/L (13-40); BUN/Creatinine Ratio 11.6 (10.0-20.0); Bilirubin, Total 0.4 mg/dL (0.2-1.0); Blood Urea Nitrogen 75 mg/dL (9-23); Calcium 8.9 mg/dL (8.7-10.4); Carbon Dioxide 20 mmol/L (20-31); Chloride 110 mmol/L (98-107); Glucose 103 mg/dL (74-106); Potassium 4.7 mmol/L (3.5-5.1); Sodium 142 mmol/L (136-145); Total Protein 6.5 g/dL (5.7-8.2)
[2025-02-14] MEDS ORDERED: ACETAMINOPHEN 325 MG TAB PO PRN (22:00)
[2025-02-14] MEDS ORDERED: DOCUSATE SOD 100 MG CAP PO PRN (22:00)
[2025-02-14] MEDS ORDERED: ONDANSETRON HCL 4 MG/2 ML VIAL IV PRN (22:00)
[2025-02-14] MEDS ORDERED: NITROGLYCERIN 0.4 MG SL TAB SL PRN (22:00)
[2025-02-14] MEDS: FUROSEMIDE 40 MG/4 ML VIAL IV ONE (22:07)
[2025-02-14] MEDS: SODIUM CHLOR 0.9% PF (SALINE LOCK) 10ML VIAL/SYR IV SCH (22:07)
[2025-02-14] MEDS: METOPROLOL TARTRATE 50 MG TAB PO SCH (22:20)
[2025-02-14] MEDS: hydrALAZINE HCL 25 MG TAB PO SCH (22:20)
[2025-02-14] MEDS: PANTOPRAZOLE 40 MG TAB PO ONE (22:21)
[2025-02-14] MEDS: ATORVASTATIN 20 MG TAB PO SCH (22:21)
--- NOTE | 2025-02-14 22:57 | DVHHP2 ---
History of Present Illness History of Present Illness Patient is 70 years old male with past medical history of hypertension, diabetes mellitus type 2, ESRD on hemodialysis-has a dialysis catheter on the right side of the chest, CHF, hyperlipidemia, anemia came with a complaint of shortness of breaths. As per patient he has been having shortness of breath started today morning. Patient also reported he has some pressure-like chest pain with the shortness of breaths. Also feeling dizzy and weak but no passing out. Patient also reported his leg swelling got worse today. Patient missed his dialysis after last 1 had on Tuesday due to insurance issue. Patient also reported he ran out of Lasix and could not bite. Patient's. Was LVEF was 55% on 08/07/2024. Patient denied any fever, acute joint redness, sick contact, diarrhea, change in vision or dysarthria. Initial lab workup revealed anemia with a hemoglobin 9.2, RDW 15, serum creatinine 6. Four 5. BNP 986. Troponin I with a normal limit. UDS positive for cannabinoids.. Doppler study of the lower extremity negative for DVT. Bilateral inguinal lymphadenopa Past Medical History hypertension, diabetes mellitus type 2, ESRD on hemodialysis, CHF, hyperl ipidemia, anemia Past Surgical History Has a dialysis catheter in the right side of the chest Family History Both mom and dad had diabetes mellitus Past Social History Lives in a rental room, use marijuana, denies alcoholism or smoking Review of Systems Review of Systems Allergy- NKDA Patient was seen today at the bedside. Cardiovascular- deny acute chest pain or shortness of breath or cough or palpitation Respiratory denies cough or short of breath or wheezing Gastrointestinal- denies any rectal bleeding, nausea or vomiting Neurological- denies acute dysarthria, dysphagia, change in vision Psychiatry- denies depression or SI or HI Skin- denies acute rash or purpura Allergies: Coded Allergies: NO KNOWN ALLERGIES (Unverified , 05/07/18) Medications Current Medications Medications Dose Ordered Sig/Scott Route Start Time Stop Time Status Last Admin Dose Admin Sodium Chloride 10 ml Q8HR IV 02/14/25 22:00 02/14/25 22:07 10 ML Ondansetron HCl 4 mg Q4HP PRN IV 02/14/25 22:00 Docusate Sodium 100 mg BIDPRN PRN PO 02/14/25 22:00 Enoxaparin Sodium 30 mg DAILY SC 02/15/25 10:00 Acetaminophen 650 mg Q6HP PRN PO 02/14/25 22:00 Nitroglycerin 0.4 mg Q5MINP PRN SL 02/14/25 22:00 Atorvastatin Calcium 20 mg HS PO 02/14/25 22:00 02/14/25 22:21 20 MG Hydralazine HCl 25 mg TID PO 02/14/25 22:00 02/14/25 22:20 25 MG Metoprolol Tartrate 50 mg BID PO 02/14/25 22:00 02/14/25 22:20 50 MG Ferrous Sulfate 325 mg DAILY PO 02/15/25 10:00 Pantoprazole Sodium 40 mg DAILY@0600 PO 02/15/25 06:00 Furosemide 40 mg BIDD IV 02/15/25 06:00 Nifedipine 60 mg DAILY PO 02/14/25 23:00 UNV Exam Vital Signs Vital Signs Date Time Temp Pulse Resp B/P (MAP) Pulse Ox O2 Delivery O2 Flow Rate FiO2 02/14/25 22:20 61 192/86 02/14/25 22:00 14 98 02/14/25 19:10 98.4 98.4 02/14/25 19:10 Room Air* 0 21 Exam General examination- awake, alert, oriented HEENT- PEERLA, no acute nasal discharge Cardiovascular- S1-S2 audible, rate and rhythm regular, no murmur Respiratory- CTAB, no wheeze or rhonchi Gastrointestinal-nontender, bowel sound+. Nondistended Musculoskeletal-no acute joint swelling or tenderness or redness Lower extremity- bilateral leg edema+++ Neurological- cranial nerves intact, no acute dysarthria or dysphagia Psychiatry- denies depression or SI or HI Skin- no acute rash or purpura Labs/Xrays Labs Test 02/14/25 22:23 02/14/25 18:51 02/14/25 18:42 Range/Units White Blood Count 6.5 4.4-10.8 10^3/uL Red Blood Count 2.86 L 4.5-5.90 10^6/uL Hemoglobin 9.2 L 13.5-17.5 g/dL Hematocrit 27.6 L 41.0-53.0 % Mean Corpuscular Volume 96.5 80.0-100.0 fL Mean Corpuscular Hemoglobin 32.3 H 28.0-32.0 pg Mean Corpuscular Hemoglobin Concent 33.5 32.0-36.0 g/dL Red Cell Distribution Width 15.0 H 11.8-14.3 % Platelet Count 168 140-450 10^3/uL Mean Platelet Volume 8.3 6.9-10.8 fL Neutrophils (%) (Auto) 72.6 37.0-80.0 % Lymphocytes (%) (Auto) 17.5 10.0-50.0 % Monocytes (%) (Auto) 6.5 0.0-12.0 % Eosinophils (%) (Auto) 2.7 0.0-7.0 % Basophils (%) (Auto) 0.7 0.0-2.0 % Neutrophils # (Auto) 4.7 1.6-8.6 10 ^3/uL Lymphocytes # (Auto) 1.1 0.4-5.4 10 ^3/uL Monocytes # (Auto) 0.4 0-1.3 10 ^3/uL Eosinophils # (Auto) 0.2 0-0.8 10 ^3/uL Basophils # (Auto) 0 0-0.2 10 ^3/uL Nucleated Red Blood Cells 0.0 % Sodium Level 142 136-145 mmol/L Potassium Level 4.7 3.5-5.1 mmol/L Chloride Level 110 H 98-107 mmol/L Carbon Dioxide Level 20 20-31 mmol/L Anion Gap 12 5-15 Blood Urea Nitrogen 75 H 9-23 mg/dL Creatinine 6.44 H 0.700-1.30 mg/dL Glomerular Filtration Rate Calc 9 >90 mL/min BUN/Creatinine Ratio 11.6 10.0-20.0 Serum Glucose 103 74-106 mg/dL Lactic Acid Level 0.6 0.4-2.0 mmol/L Calcium Level 8.9 8.7-10.4 mg/dL Phosphorus Level 7.4 H 2.4-5.1 mg/dL Total Bilirubin 0.4 0.2-1.0 mg/dL Aspartate Amino Transferase (AST) 18 13-40 U/L Alanine Aminotransferase (ALT) 12 7-40 U/L Alkaline Phosphatase 115 46-116 U/L B-Type Natriuretic Peptide 985.66 0-100 pg/mL Total Protein 6.5 5.7-8.2 g/dL Albumin 3.9 3.2-4.8 g/dL Thyroid Stimulating Hormone (TSH) 2.93 0.55-4.78 uIU/mL POC Glucose 96 70-106 mg/dl Assessment/Plan Assessment/Plan Assessment and plan Acute fluid overload likely due to ESRD/acute on chronic heart failure Acute on chronic heart failure systolic versus diastolic Bilateral leg edema likely due to heart failure/ESRD ESRD Moderate anemia likely anemia of chronic disease Hypertensive urgency Diabetes mellitus type 2 Hyperlipidemia Bilateral inguinal lymphadenopathy UDS positive for cannabinoids Doppler study of the lower extremity negative for DVT. Bilateral inguinal lymphadenopathy Plan Ordered Doppler study of the lower extremity to rule out DVT Ordered echo 2D Ordered Lasix 40 mg b.i.d. Resumed home medication metoprolol, nifedipine ER 60 mg Ordered nephrology consult Ordered iron panel Diabetic and renal diet Goals of care, Code status ; discussed with >15 minutes PUD prophylaxis: Pantoprazole DVT prophylaxis: Lovenox Plan discussed with Dr. Figueroa , nursing staff, Total time spent on patient evaluation, chart review, assessment and plan, discussion discussion >35 minutes Plan discussed with: Patient, Other (RN) My Orders Orders - CAITLIN ROMERO RESIDENT Procedure Category Date Status Time Admit ADMIT 02/14/25 Transmitted 21:53 Sodium Chloride Lock PHA 02/14/25 In Process (Saline Lock Ns) 22:00 Ondansetron Hcl PHA 02/14/25 In Process (Zofran) 22:00 Docusate Sodium PHA 02/14/25 In Process Capsule (Colace 22:00 Complete Blood Count LAB 02/15/25 Verified 04:00 Comprehensive LAB 02/15/25 Verified Metabolic Panel 04:00 Enoxaparin Sodium PHA 02/15/25 In Process (Lovenox) 10:00 Acetaminophen Tablet PHA 02/14/25 In Process (Tylenol Tablet) 22:00 Nitroglycerin PHA 02/14/25 In Process Sublingual (Ntrostat 22:00 Notify Of Changes LIZ 02/14/25 In Process From [facility] 21:53 Crimper Operator For LIZ 02/14/25 In Process 24 Hours 21:53 Renal DIET 02/15/25 Transmitted Standard(2gna,3gk,Lopho) Breakfast *Dr. Mahesh Krishna CONS 02/14/25 Transmitted -[place] 21:56 Drug Screen LAB 02/14/25 Logged 21:57 Atorvastatin (Lipitor) PHA 02/14/25 In Process 22:00 Hydralazine Hcl PHA 02/14/25 In Process Tablet (Apresoline 22:00 Metoprolol Tartrate PHA 02/14/25 In Process Tablet (Lopressor Ta 22:00 Ferrous Sulfate Tablet PHA 02/15/25 In Process 10:00 Pantoprazole Tablet PHA 02/15/25 In Process (Protonix Tablet) 06:00 Furosemide Injection PHA 02/15/25 In Process (Lasix Injection) 06:00 Hydralazine Injection PHA 02/14/25 Logged (Apresoline Inject 23:00 Nifedipine Er PHA 02/14/25 Logged (Procardia Xl 23:00 Date of Service: February 14, 2025 Billing Provider: BRENDAN FIGUEROA MD Common Visit Codes: 69075-DACUOME INP/OBS CARE (HIGH) Secondary Visit Codes: 62036-OPMYMIVW CARE PLAN 30 MINUTES CAITLIN ROMERO RESIDENT February 14, 2025 22:57
[2025-02-14] MEDS: NIFEdipine ER 30 MG TAB PO SCH (23:11)
[2025-02-14] MEDS: hydrALAZINE HCL 20 MG/ML VL IV ONE (23:12)
[2025-02-15 01:27] LABS: Urine Bacteria None Seen /hpf (None Seen)
[2025-02-15 01:37] LABS: Urine Blood 1+ /uL (Negative); Urine Clarity Clear (Clear); Urine Color Colorless (Yellow); Urine Protein, UAD 2+ (Negative); Urine Specific Gravity 1.011 (1.001-1.035); Urine Squamous Epithelial Cell FEW /hpf (<5); Urine Urobilinogen Normal (Negative); Urine WBC 2 /HPF (0-3); Urine pH 6.5 (5.0-9.0)
[2025-02-15 02:07] LABS: Amphetamine Screen, Urine Neg (NEGATIVE); Barbiturate Scree,Urine Neg (NEGATIVE); Benzodiazephine Screen, Urine Neg (NEGATIVE); Cannabinoid Screen, Urine Pos (NEGATIVE); Cocaine Screen, Urine Neg (NEGATIVE); Opiate Scree,Urine Neg (NEGATIVE); Phencyclidine Screen, Urine Neg (NEGATIVE)
--- NOTE | 2025-02-15 03:24 | DVH ---
Examination: BLDVT CLINICAL INDICATION: to rule out VTE COMPARISON: None. TECHNIQUE: Using real-time ultrasonic imaging and color Doppler the deep venous system of both lower extremities was studied from the level of the common femoral veins to the posterior tibial veins. FINDINGS: Ultrasound examination of bilateral common femoral veins, bilateral deep femoral veins, th e proximal, middle and distal segments of bilateral superficial femoral veins, bilateral popliteal ve ins, and bilateral posterior tibial veins reveal normal phasicity and compression and augmentation. No thrombus was visualized. Enlarged lymphnodes seen in bilateral groin largest measuring 48 mm on right and 44 mm on left. Bilateral lower limb edema is seen IMPRESSION: 1. There is no evidence of superficial or deep venous thrombosis in bilateral lower extremity venous systems. 2. Enlarged lymphnodes seen in bilateral groin. 3. Bilateral lower limb edema is seen. Electronically Signed 02/15/2025 03:22 Gasper Dickerson
[2025-02-15] MEDS: FUROSEMIDE 40 MG/4 ML VIAL IV SCH (06:00)
[2025-02-15] MEDS: PANTOPRAZOLE 40 MG TAB PO SCH (06:00)
[2025-02-15 06:24] LABS: Basophils # (auto) 0 10 ^3/uL (0-0.2); Basophils % (auto) 0.4 % (0.0-2.0); Eosinophils # (auto) 0.1 10 ^3/uL (0-0.8); Eosinophils % (auto) 1.7 % (0.0-7.0); Hematocrit 27.8 % (41.0-53.0); Hemoglobin 9.4 g/dL (13.5-17.5); Lymphocytes % (auto) 11.4 % (10.0-50.0); Mean Corpuscular Hemoglobin 32.6 pg (28.0-32.0); Mean Corpuscular Hgb Conc. 33.7 g/dL (32.0-36.0); Mean Corpuscular Volume 96.7 fL (80.0-100.0); Monocytes # (auto) 0.5 10 ^3/uL (0-1.3); Neutrophils % (auto) 80.5 % (37.0-80.0); Platelet Count (auto) 159 10^3/uL (140-450); Red Blood Cells 2.88 10^6/uL (4.5-5.90); Red Cell Distribution Width 14.7 % (11.8-14.3); White Blood Cell 8.7 10^3/uL (4.4-10.8)
[2025-02-15] MEDS: FUROSEMIDE 40 MG/4 ML VIAL IV ONE (06:35)
[2025-02-15] MEDS: hydrALAZINE HCL 20 MG/ML VL IV ONE (06:35)
[2025-02-15 06:44] LABS: Albumin 3.7 g/dL (3.2-4.8); Alkaline Phosphatase 85 U/L (46-116); Anion Gap 15 (5-15); Aspartate Aminotransferase 18 U/L (13-40); Folate (Folic Acid) 8.83 ng/mL (>5.38); Glucose 93 mg/dL (74-106); Magnesium 2.2 mg/dL (1.6-2.6); Potassium 4.2 mmol/L (3.5-5.1); Sodium 141 mmol/L (136-145); Total Protein 6.1 g/dL (5.7-8.2)
[2025-02-15 06:45] LABS: Bilirubin, Total 0.4 mg/dL (0.2-1.0)
[2025-02-15 06:51] LABS: Alanine Aminotransferase 9 U/L (7-40); Blood Urea Nitrogen 80 mg/dL (9-23); Calcium 8.6 mg/dL (8.7-10.4); Carbon Dioxide 19 mmol/L (20-31); Chloride 107 mmol/L (98-107)
[2025-02-15 06:54] LABS: INR 1.04 (0.9-1.15); Partial Thromboplastin Time 32.6 SEC (24.5-34.5)
[2025-02-15 07:45] VITALS: PULSE 64; RESP 13; O2SAT 99
[2025-02-15 08:43] LABS: % Iron Saturation 24.4 % (20-55)
--- NOTE | 2025-02-15 08:51 | DVHCONRES ---
Date Seen: February 15, 2025 Resident Creating Document: VALARIE DONNELLY RESIDENT Referring Physician Dr Madden History of Present Illness This is a 70-year-old male with PMHx ESRD on hemodialysis with in the [facility] Tuesday/Tuesday/Tuesday, diabetes mellitus type 2 for more than 10 years not on medications, chronic heart failure with a preserved ejection fraction, anemia of chronic kidney disease, hyperlipidemia, asthma not on inhalers who presented to the ER with a chief complaint of generalized weakness, shortness of breaths on exertion and lower extremity edema. Patient reports that his last hemodialysis session was on 02/08 and he was told by the dialysis center to go to the ER in case if he needs anymore dialysis sessions. He reports that he makes urine but has been feeling shortness of breaths on exertion, lower extremity gradually worsening edema and worsening fatigue for the past week. Denies PND or orthopnea. Denies cough/chest pain/palpitation/nausea/vomiting/constipation/diarrhea. On arrival to the ER, patient was requiring 1 L NC supplementation, blood pressure 181/76 mmHg. BUN/creatinine 80/6.6, GFR 8 Past medical history: ESRD on hemodialysis with in the [facility] Tuesday/Tuesday/Tuesday, diabetes mellitus type 2 for more than 10 years not on medications, chronic heart failure with a preserved ejection fraction, anemia of chronic kidney disease, hyperlipidemia, asthma not on inhalers Past surgical history: None Home medication: Does not remember Social history: Smokes marijuana occasionally, denies drinking, reports remote history of cocaine/methamphetamine use Patient seen and examined in the ER. Hemodialysis pending. Family History: Diabetes during Diabetes mellitus G8 MOTHER G8 FATHER Allergies: Coded Allergies: NO KNOWN ALLERGIES (Unverified , 05/07/18) Home Meds Active Scripts Atorvastatin Calcium (ATORVASTATIN CALCIUM) 20 Mg Tab, 1 TAB PO DAILY, #30 TAB 5 Refills Prov:VINITA RICHARDS MD 11/28/24 Hydralazine HCl (Hydralazine HCl) 25 Mg Tab, 25 MG PO TID, #90 TAB 3 Refills Prov:VINITA RICHARDS MD 11/28/24 Metoprolol Succinate (Metoprolol Succinate Er) 50 Mg Tab, 1 TAB PO BID, #60 TAB 5 Refills Prov:VINITA RICHARDS MD 11/28/24 Nifedipine (Nifedipine Er) 60 Mg Tab, 1 TAB PO DAILY, #30 TAB 5 Refills Prov:VINITA RICHARDS MD 11/28/24 Nifedipine (Nifedipine Er) 30 Mg Tab, 1 TAB PO DAILY for 30 Days, #30 TAB 3 Refills Prov:GLORIA LEYVA NP 08/09/24 Atorvastatin Calcium (ATORVASTATIN CALCIUM) 20 Mg Tab, 20 MG PO HS for 30 Days, #30 TAB 3 Refills Prov:UMA GARNICA MD 12/23/23 Metoprolol Tartrate (LOPRESSOR TABLET) 50 Mg Tb, 50 MG PO BID for 30 Days, #60 TAB 3 Refills Prov:UMA GARNICA MD 12/23/23 Reported Medications Ferrous Sulfate (Ferosul) 325 Mg Tab, 1 TAB PO DAILY 12/20/23 Current Medications Current Medications Medications (Trade) Dose Ordered Sig/Scott Route PRN Reason Start Time Stop Time Status Last Admin Sodium Chloride (Saline Lock Ns) 10 ml Q8HR IV 02/14/25 22:00 02/15/25 06:00 Ondansetron HCl (Zofran) 4 mg Q4HP PRN IV NAUSEA / VOMITING 02/14/25 22:00 Docusate Sodium (Colace Capsule) 100 mg BIDPRN PRN PO FOR CONSTIPATION 02/14/25 22:00 Enoxaparin Sodium (Lovenox) 30 mg DAILY SC 02/15/25 10:00 Acetaminophen (Tylenol Tablet) 650 mg Q6HP PRN PO PAIN SCALE 1-3 OR TEMP>100.4 02/14/25 22:00 Nitroglycerin (Ntrostat Sublingual) 0.4 mg Q5MINP PRN SL FOR CHEST PAIN 02/14/25 22:00 Atorvastatin Calcium (Lipitor) 20 mg HS PO 02/14/25 22:00 02/14/25 22:21 Hydralazine HCl (Apresoline Tablet) 25 mg TID PO 02/14/25 22:00 02/15/25 06:00 Metoprolol Tartrate (Lopressor Tablet) 50 mg BID PO 02/14/25 22:00 02/14/25 22:20 Nifedipine (Procardia Xl (Time-Release)) 30 mg DAILY PO 02/15/25 10:00 02/14/25 22:53 DC Ferrous Sulfate 325 mg DAILY PO 02/15/25 10:00 Pantoprazole Sodium (Protonix Tablet) 40 mg DAILY@0600 PO 02/15/25 06:00 02/15/25 06:00 Furosemide (Lasix Injection) 40 mg BIDD IV 02/15/25 06:00 02/15/25 06:00 Nifedipine (Procardia Xl (Time-Release)) 60 mg DAILY PO 02/14/25 23:00 02/14/25 23:11 Epoetin Rolf-epbx (Retacrit) 10,000 unit MWF SC 02/15/25 10:00 Calcium Acetate (Phoslo Capsule) 1,334 mg TIDWMEALS PO 02/15/25 08:00 Review of Systems Eyes: No Pain, No Vision change, No Conjunctivae inflammation, No Eyelid inflammation, No Other, No Redness ENT: No Ear pain, No Ear discharge, No Nose pain, No Nose discharge, No Nose congestion, No Mouth pain, No Mouth swelling, No Throat pain, No Throat swelling, No Other Cardiovascular: No Chest Pain, No Palpitations, No Orthopnea, No PND, reports lower extremity edema, No Lt Headedness, No Other Respiratory: No Cough, No Dry, reports shortness of breaths, No SOB with exertion, No Wheezing, No Hemoptysis, No Pleuritic Pain, No Sputum, No Other Gastrointestinal: No Nausea, No Vomiting, No Abdominal Pain, No Diarrhea, No Constipation, No Melena, No Hematochezia, No Other Genitourinary: No Dysuria, No Frequency, No Incontinence, No Hematuria, No Retention, No Other Musculoskeletal: No other, No neck pain, No shoulder pain, No arm pain, No back pain, No hand pain, No leg pain, No foot pain Skin: No Rash, No Lesions, No Jaundice, No Bruising, No Other Vital Signs Vital Signs Date Time Temp Pulse Resp B/P (MAP) Pulse Ox O2 Delivery O2 Flow Rate FiO2 02/15/25 08:00 68 02/15/25 07:45 97.3 13 127/65 (85) 99 97.3 02/15/25 07:45 Nasal Cannula* 1 24 Physical Exam Obese male patient lying in the bed in ER, no acute distress General: Obese, afebrile, palor, mucosae are moist Cardiovascular: Regular S1 and S2. No murmurs, gallops or rubs. No JVD elevation. 2+ pitting pedal edema bilaterally Respiratory: Bibasilar crackles heard on auscultation, saturating 97 on room air Abdomen: Soft, nontender, nondistended, normoactive bowel sounds, no rebound tenderness, no organomegaly, no masses Genitourinary: Deferred MSK/skin: Mobilizes 4 limbs. Skin is dry and warm Neurological: No motor, no sensitive deficits, normal speech. Pupils are isocoric and reactive. Psych/Mental Status: A/Ox3 Labs/Diagnostic Data Labs Test 02/15/25 05:47 02/15/25 00:50 02/14/25 22:23 02/14/25 18:51 Range/Units White Blood Count 8.7 # 4.4-10.8 10^3/uL Red Blood Count 2.88 L 4.5-5.90 10^6/uL Hemoglobin 9.4 L 13.5-17.5 g/dL Hematocrit 27.8 L 41.0-53.0 % Mean Corpuscular Volume 96.7 80.0-100.0 fL Mean Corpuscular Hemoglobin 32.6 H 28.0-32.0 pg Mean Corpuscular Hemoglobin Concent 33.7 32.0-36.0 g/dL Red Cell Distribution Width 14.7 H 11.8-14.3 % Platelet Count 159 140-450 10^3/uL Mean Platelet Volume 8.2 6.9-10.8 fL Neutrophils (%) (Auto) 80.5 H 37.0-80.0 % Lymphocytes (%) (Auto) 11.4 10.0-50.0 % Monocytes (%) (Auto) 6.0 0.0-12.0 % Eosinophils (%) (Auto) 1.7 0.0-7.0 % Basophils (%) (Auto) 0.4 0.0-2.0 % Neutrophils # (Auto) 7.0 1.6-8.6 10 ^3/uL Lymphocytes # (Auto) 1.0 0.4-5.4 10 ^3/uL Monocytes # (Auto) 0.5 0-1.3 10 ^3/uL Eosinophils # (Auto) 0.1 0-0.8 10 ^3/uL Basophils # (Auto) 0 0-0.2 10 ^3/uL Nucleated Red Blood Cells 0.0 % Prothrombin Time 11.0 9.3-11.8 sec Prothrombin Time INR 1.04 0.9-1.15 Activated Partial Thromboplast Time 32.6 24.5-34.5 SEC Sodium Level 141 136-145 mmol/L Potassium Level 4.2 3.5-5.1 mmol/L Chloride Level 107 98-107 mmol/L Carbon Dioxide Level 19 L 20-31 mmol/L Anion Gap 15 5-15 Blood Urea Nitrogen 80 *H 9-23 mg/dL Creatinine 6.68 H 0.700-1.30 mg/dL Glomerular Filtration Rate Calc 8 >90 mL/min BUN/Creatinine Ratio 12.0 10.0-20.0 Serum Glucose 93 74-106 mg/dL Hemoglobin A1c 5.0 <5.7 % A1C Calcium Level 8.6 L 8.7-10.4 mg/dL Magnesium Level 2.2 1.6-2.6 mg/dL Iron Level 58 L 65-175 ug/dL Total Iron Binding Capacity 238 L 250-425 ug/dL Percent Iron Saturation 24.4 20-55 % Total Bilirubin 0.4 0.2-1.0 mg/dL Aspartate Amino Transferase (AST) 18 13-40 U/L Alanine Aminotransferase (ALT) 9 7-40 U/L Alkaline Phosphatase 85 46-116 U/L Total Protein 6.1 5.7-8.2 g/dL Albumin 3.7 3.2-4.8 g/dL Vitamin B12 Level 229 211-911 pg/mL Vitamin D 25-Hydroxy 35.8 30.0-100 ng/mL Folic Acid 8.83 >5.38 ng/mL Urine Color Colorless Yellow Urine Clarity Clear Clear Urine pH 6.5 5.0-9.0 Urine Specific Kyle 1.011 1.001-1.035 Urine Protein 2+ H Negative Urine Ketones Negative Negative Urine Blood 1+ H Negative /uL Urine Nitrite Negative Negative Urine Bilirubin Negative Negative Urine Urobilinogen Normal Negative mg/dL Urine Leukocyte Esterase Negative Negative /uL Urine RBC 16 0 - 3 /hpf Urine Microscopic WBC 2 0-3 /HPF Urine Squamous Epithelial Cells Few <5 /hpf Urine Bacteria None seen None Seen /hpf Urine Glucose Trace Normal mg/dL Urine Opiates Screen Neg NEGATIVE Urine Fentanyl Screen Neg NEGATIVE Urine Barbiturates Screen Neg NEGATIVE Urine Phencyclidine Screen Neg NEGATIVE Urine Amphetamines Screen Neg NEGATIVE Urine Benzodiazepines Screen Neg NEGATIVE Urine Cocaine Screen Neg NEGATIVE Urine Cannabinoids Screen Pos NEGATIVE Troponin I High Sensitivity 41 </=54 ng/L Lactic Acid Level 0.6 0.4-2.0 mmol/L Phosphorus Level 7.4 H 2.4-5.1 mg/dL B-Type Natriuretic Peptide 985.66 0-100 pg/mL Thyroid Stimulating Hormone (TSH) 2.93 0.55-4.78 uIU/mL Test 02/14/25 18:42 Range/Units POC Glucose 96 70-106 mg/dl Assessment ESRD on hemodialysis M/W/Fr - last HD 02/08 Hypertensive crisis Diabetes mellitus type 2 for more than 10 years Chronic congestive heart failure with preserved ejection fraction Anemia of chronic kidney disease Hyperphosphatemia Hyperlipidemia History of asthma History of polysubstance use dependence Plan: Hemodialysis scheduled for today. Continue metoprolol 50 mg b.i.d., nifedipine 60 mg daily for adequate BP control Lasix 80mg on non dialysis days Continue strict I&Os and fluid restriction Iron panel consistent with anemia of chronic kidney disease Continue calcium acetate 1334 mg TID with meals Replenish vitamin-D and B12 Epogen 80529 units SC with dialysis Renal diet Plan discussed with patient in which all questions have been answered Case discussed with Dr. Gipson Plan discussed with: Patient VALARIE DONNELLY RESIDENT February 15, 2025 08:51
[2025-02-15] MEDS: SODIUM CHL 0.9% 1000 ML BAG XX ONE (09:13)
[2025-02-15] MEDS: CALCIUM ACETATE 667 MG CAP PO SCH (09:41)
[2025-02-15] MEDS ORDERED: NIFEdipine ER 30 MG TAB PO SCH (10:00)
[2025-02-15] MEDS: FERROUS SULFATE 325mg EC TAB PO SCH (10:34)
[2025-02-15 10:35] LABS: COVID19 ANTIGEN SOFIA FIA NEGATIVE (NEGATIVE); Rapid Influenza A Negative (Negative); Rapid Influenza B Negative (Negative)
[2025-02-15] MEDS: ENOXAPARIN SOD 30 MG/0.3 ML SYRINGE SC SCH (10:35)
[2025-02-15] MEDS: EPOETIN ALFA-EPBX 10,000 UNIT/1ML VIAL SC SCH (10:36)
[2025-02-15 11:08] LABS: Hepatitis A Ab IgM Negative; Hepatitis B Core IgM Negative (Negative); Hepatitis B Surface Antigen Negative (Negative); Hepatitis C Antibody Negative (Negative)
[2025-02-15] MEDS: ERGOCALCIFEROL 50,000 UNIT(1.25MG) CAP PO SCH (11:30)
--- NOTE | 2025-02-15 15:49 | DVHPNRES ---
Progress Note Date Seen: February 15, 2025 Resident Creating Document: MILA HOYT RESIDENT Has the PT tested + for MRSA If YES, has PT been informed?: No Medical Necessity Reason Pt with a Central, PICC or Fol: No Medical Necessity Reason History of Present Illness Patient is 70 years old male with past medical history of hypertension, diabetes mellitus type 2, ESRD on hemodialysis-has a dialysis catheter on the right side of the chest, CHF, hyperlipidemia, anemia came with a complaint of shortness of breaths. As per patient he has been having shortness of breath started today morning. Patient also reported he has some pressure-like chest pain with the shortness of breaths. Also feeling dizzy and weak but no passing out. Patient also reported his leg swelling got worse today. Patient missed his dialysis after last 1 had on Tuesday due to insurance issue. Patient also reported he ran out of [email or web address] and could not bite. Patient's. Was LVEF was 55% on 08/07/2024. Patient denied any fever, acute joint redness, sick contact, diarrhea, change in vision or dysarthria. Initial lab workup revealed anemia with a hemoglobin 9.2, RDW 15, serum creatinine 6. Four 5. BNP 986. Troponin I with a normal limit. UDS positive for cannabinoids.. Doppler study of the lower extremity negative for DVT. Bilateral inguinal lymphadenopa Past Medical History: hypertension, diabetes mellitus type 2, ESRD on hemodialysis, CHF, hyperlipidemia, anemia Past Surgical History: Has a dialysis catheter in the right side of the chest Family History: Both mom and dad had diabetes mellitus Past Social History:Lives in a rental room, use marijuana, denies alcoholism or smoking 02/15 Patient is a 70-year-old male with a history of diabetes, hypertension, CHF, end-stage renal disease on hemodialysis presented to the ED because he was unable to get his dialysis due to insurance reasons. According to the patient he has been having shortness of breath that started yesterday morning. Patient also reported pressure-like chest pain. He also felt dizzy and weak and but did not pass out. Patient also reported pain in his left knee whenever he gets fluid overloaded. His last dialysis was on Tuesday. Currently presented to the ED for evaluation in the possible to receive dialysis. He denies fever and chills. . Initial lab workup revealed anemia with a hemoglobin 9.2, RDW 15, serum creatinine 6.44 BNP 986. Troponin I with a normal limit. UDS positive for cannabinoids. Doppler study of the lower extremity negative for DVT. Chest x- ray showed 1. Right internal jugular catheter in place in the right atrium or cavoatrial junction. No significant cardiopulmonary findings from 11/25/2024. Echo pending Subjective Review of Systems Constitutional: Denies fever no chills no feeling of malaise HEENT: Denies headache, ear pain, ear discharges, conjunctivitis, nasal discharge throat pain Cardiovascular: Denies chest pain, palpitation, orthopnea, PND, or pedal edema Respiratory: Denies shortness of breath, cough cough, sputum production, hemoptysis, GI: Denies abdominal pain, nausea, vomiting, diarrhea, hematemesis, hematochezia, : Denies frequency, urgency, hematuria, Endocrine: Denies unintentional weight gain or weight loss, feeling of hot flashes, Neftaly: Denies easy bruising, bleeding disorders, epistaxis Musculoskeletal: Denies joint pains, muscle aches Psych: No evidence of depression, miguel, suicidal ideation Objective vital signs Vital Sign Date Time Temp Pulse Resp B/P (MAP) Pulse Ox O2 Delivery O2 Flow Rate FiO2 02/15/25 12:47 55 135/73 02/15/25 10:00 12 97 02/15/25 07:45 97.3 97.3 02/15/25 07:45 Nasal Cannula* 1 24 medications Current Medications Medications Dose Ordered Sig/Scott Route Start Time Stop Time Status Last Admin Dose Admin Sodium Chloride 10 ml Q8HR IV 02/14/25 22:00 02/15/25 06:00 10 ML Ondansetron HCl 4 mg Q4HP PRN IV 02/14/25 22:00 Docusate Sodium 100 mg BIDPRN PRN PO 02/14/25 22:00 Enoxaparin Sodium 30 mg DAILY SC 02/15/25 10:00 02/15/25 10:35 30 MG Acetaminophen 650 mg Q6HP PRN PO 02/14/25 22:00 Nitroglycerin 0.4 mg Q5MINP PRN SL 02/14/25 22:00 Atorvastatin Calcium 20 mg HS PO 02/14/25 22:00 02/14/25 22:21 20 MG Hydralazine HCl 25 mg TID PO 02/14/25 22:00 02/15/25 06:00 25 MG Metoprolol Tartrate 50 mg BID PO 02/14/25 22:00 02/15/25 10:35 50 MG Ferrous Sulfate 325 mg DAILY PO 02/15/25 10:00 02/15/25 10:34 325 MG Pantoprazole Sodium 40 mg DAILY@0600 PO 02/15/25 06:00 02/15/25 06:00 40 MG Nifedipine 60 mg DAILY PO 02/14/25 23:00 02/15/25 10:34 60 MG Epoetin Rolf-epbx 10,000 unit MWF SC 02/15/25 10:00 02/15/25 10:36 10,000 UNIT Calcium Acetate 1,334 mg TIDWMEALS PO 02/15/25 08:00 02/15/25 09:41 1,334 MG Ergocalciferol 50,000 unit Q7D PO 02/15/25 11:30 UNV Furosemide 80 mg DAILY IV 02/16/25 10:00 Examination General Appearance: Alert, Oriented X3, Cooperative, No acute distress HEENT: Atraumatic, PERRLA, EOMI, Mucous membrane moist/pink Respiratory: Clear to auscultation, Normal air movement Cardiovascular: Regular rate, Normal S1, Normal S2, No murmurs, no chest wall tenderness Abdominal: NO distention, no tenderness, bowel sounds present, no scars noted Extremities: No clubbing, No cyanosis, No edema, Normal pulses, No tenderness/swelling Skin: No rashes, No breakdown, No significant lesion Neuro: Normal gait, Normal speech, Strength at 5/5 X4 ext, Normal tone, Sensation intact, Cranial nerves 3-12 NL, Reflexes 2+ Psych/Mental Status: Mental status NL, Mood NL laboratory and microbiology Laboratory Tests 02/15/25 05:47 Test 02/15/25 05:47 Range/Units Serum Glucose 93 74-106 mg/dL Problem List/Assessment/Plan Problem List/Assessment/Plan ASSESSMENT Fluid overload secondary to missed hemodialysis ESRD on hemodialysis M/W/Fr - last HD 02/08 Hypertensive urgency Diabetes mellitus type 2 for more than 10 years Acute on chronic exacerbation HFpEF Anemia of chronic kidney disease Hyperphosphatemia Hyperlipidemia History of asthma History of polysubstance use dependence Hypertensive urgency Diabetes mellitus type 2 Hyperlipidemia Bilateral inguinal lymphadenopathy Obesity grade 1, BMI 30.9 Plan Hemodialysis scheduled for today per nephrology Continue metoprolol 50 mg b.i.d., nifedipine 60 mg daily for adequate BP control Lasix 80mg on non dialysis days Continue strict I&Os and fluid restriction Iron panel consistent with anemia of chronic kidney disease Continue calcium acetate 1334 mg TID with meals Replenish vitamin-D and B12 Epogen 94815 units SC with dialysis Goal of care discussed for more than 17 minutes: Full code Case and plan discussed with Dr. Tam Plan discussed with: Patient Date of Service: February 15, 2025 Billing Provider: DALI TAM MD Common Visit Codes: [id number] INP/OBS CARE(HIGH) MILA HOYT RESIDENT February 15, 2025 15:49 DALI TAM MD February 15, 2025 19:06
[2025-02-15 16:13] VITALS: PULSE 64; RESP 20; O2SAT 98
[2025-02-15 17:00] VITALS: BP 144/69; PULSE 64; RESP 20; TEMP 97.6; O2SAT 98
--- NOTE | 2025-02-15 18:15 | DVHSR ---
APPROVED REPORT EXAM: Two-dimensional and M-mode echocardiogram with Doppler and color Doppler. Blood Pressure: 139/71 mmHg INDICATION CHF RISK FACTORS Height: 64, Weight: 180 DIMENSIONS LVDd4.8 (3.8-5.7cm)LA (2D)4.6 (1.9-4.0cm)Aortic Root4.1 (2.0-3.7cm) LVDs3.4 (2.5-4.0cm)LA (MM) (1.9-4.0cm)Aortic Cusp Exc1.6 (1.5-2.0cm) EF (%) 57.0 (55-70%)Rt. Atrium4.9 (1.9-4.0cm)Asc. Aorta cm IVSd1.5 (0.7-1.1cm)RV (D) (1.8-2.4cm) PWd1.8 (0.7-1.1cm) Mitral Valve MitralMitral Stenosis E wave0.92m/sMV Mean GR.mmHg A wave1.06m/sMV Peak GR.51mmHg E/A ratio0.92D MVAcm2 DECEL [id number] 1/2 [id number] IVRTmsDop MVA1.74cm2 Aortic Valve Aortic ValveAortic Stenosis V10.92m/Wandy Mean GR.4mmHg V21.56m/Wandy Peak GR.10mmHg LVOT Diameter2.2 (1.8-2.4cm)Doppler AVA2.24cm2 Pulmonic Valve V20.82m/s Tricuspid Valve TR Velocity2.06m/s [id number] Conclusion lvef 65% moderate LVH normal lv function normal rv function no severe valve abnormalities noted
[2025-02-15 20:00] VITALS: PULSE 61
--- NOTE | 2025-02-15 20:30 | ECG ---
[facility] Test Date: 2025-02-14 Test Time: 18:45:23 Pat Name: HILTON COLEMAN Department: ER Room: [facility]5T A Gender: M [facility] Liaison: ER : 1954-12-08 Requested By: SHANTE SCHULZ Order Number: [id number] Reading MD: Sebastian Li Measurements Intervals [place] Rate: 69 P: 69 VA: 205 QRS: 33 QRSD: 96 T: 63 QT: 433 QTc: 464 Interpretive Statements Sinus rhythm ST elevation, consider anterior injury Baseline wander in lead(s) V6 Electronically Signed On 02-17-2025 22:13:42 PDT by Sebastian Li Please click the below link to view image of tracing.
[2025-02-15 21:00] VITALS: BP 119/60; PULSE 61; RESP 17; TEMP 97.8; O2SAT 100
[2025-02-16 05:00] VITALS: BP 123/58; PULSE 61; RESP 18; TEMP 98.3; O2SAT 98
[2025-02-16 08:00] VITALS: PULSE 67
[2025-02-16 08:07] LABS: Anion Gap 9 (5-15); Carbon Dioxide 27 mmol/L (20-31); Chloride 105 mmol/L (98-107); Potassium 3.6 mmol/L (3.5-5.1); Sodium 141 mmol/L (136-145)
[2025-02-16 08:08] LABS: Calcium 9.3 mg/dL (8.7-10.4)
[2025-02-16 08:13] LABS: BUN/Creatinine Ratio 8.1 (10.0-20.0); Glucose 90 mg/dL (74-106)
[2025-02-16 08:17] LABS: Blood Urea Nitrogen 39 mg/dL (9-23); Phosphorus 5.3 mg/dL (2.4-5.1)
[2025-02-16 08:20] LABS: Basophils # (auto) 0 10 ^3/uL (0-0.2); Basophils % (auto) 0.7 % (0.0-2.0); Eosinophils # (auto) 0.1 10 ^3/uL (0-0.8); Eosinophils % (auto) 1.7 % (0.0-7.0); Hematocrit 30.3 % (41.0-53.0); Hemoglobin 10.3 g/dL (13.5-17.5); Lymphocytes # (auto) 1.2 10 ^3/uL (0.4-5.4); Lymphocytes % (auto) 21.1 % (10.0-50.0); Mean Corpuscular Hemoglobin 32.7 pg (28.0-32.0); Mean Corpuscular Hgb Conc. 33.9 g/dL (32.0-36.0); Mean Corpuscular Volume 96.3 fL (80.0-100.0); Monocytes # (auto) 0.4 10 ^3/uL (0-1.3); Monocytes % (auto) 7.2 % (0.0-12.0); Neutrophils # (auto) 4.1 10 ^3/uL (1.6-8.6); Neutrophils % (auto) 69.3 % (37.0-80.0); Nucleated Red Blood Cells % 0.1 %; Platelet Count (auto) 152 10^3/uL (140-450); Red Blood Cells 3.15 10^6/uL (4.5-5.90); Red Cell Distribution Width 14.7 % (11.8-14.3); White Blood Cell 5.8 10^3/uL (4.4-10.8)
[2025-02-16 08:31] VITALS: BP 137/65; PULSE 64; RESP 18; TEMP 98.2; O2SAT 100
[2025-02-16] MEDS: FUROSEMIDE 100 MG/10ML VIAL IV SCH (09:23)
--- NOTE | 2025-02-16 10:29 | DVHPN2 ---
Progress Note Date Seen: February 16, 2025 Has the PT tested + for MRSA If YES, has PT been informed?: No Medical Necessity Reason Pt with a Central, PICC or Fol: No Subjective Patient reports: Feels better Review of Systems: Deferred Objective vital signs Vital Sign Date Time Temp Pulse Resp B/P (MAP) Pulse Ox O2 Delivery O2 Flow Rate FiO2 02/16/25 09:24 64 137/65 02/16/25 08:31 98.2 18 100 98.2 02/15/25 20:00 Room Air* 0 21 Total Intake and Output 02/15/25 02/15/25 02/16/25 15:00 23:00 07:00 Intake Total 200 ml 180 ml Balance 200 ml 180 ml medications Current Medications Medications Dose Ordered Sig/Scott Route Start Time Stop Time Status Last Admin Dose Admin Sodium Chloride 10 ml Q8HR IV 02/14/25 22:00 02/16/25 05:42 10 ML Ondansetron HCl 4 mg Q4HP PRN IV 02/14/25 22:00 Docusate Sodium 100 mg BIDPRN PRN PO 02/14/25 22:00 Enoxaparin Sodium 30 mg DAILY SC 02/15/25 10:00 02/16/25 09:27 30 MG Acetaminophen 650 mg Q6HP PRN PO 02/14/25 22:00 Nitroglycerin 0.4 mg Q5MINP PRN SL 02/14/25 22:00 Atorvastatin Calcium 20 mg HS PO 02/14/25 22:00 02/15/25 21:28 20 MG Hydralazine HCl 25 mg TID PO 02/14/25 22:00 02/16/25 05:43 25 MG Metoprolol Tartrate 50 mg BID PO 02/14/25 22:00 02/16/25 09:24 50 MG Ferrous Sulfate 325 mg DAILY PO 02/15/25 10:00 02/16/25 09:23 325 MG Pantoprazole Sodium 40 mg DAILY@0600 PO 02/15/25 06:00 02/16/25 05:42 40 MG Nifedipine 60 mg DAILY PO 02/14/25 23:00 02/15/25 10:34 60 MG Epoetin Rolf-epbx 10,000 unit MWF SC 02/15/25 10:00 02/15/25 10:36 10,000 UNIT Calcium Acetate 1,334 mg TIDWMEALS PO 02/15/25 08:00 02/16/25 09:05 1,334 MG Ergocalciferol 50,000 unit Q7D PO 02/15/25 11:30 Furosemide 80 mg DAILY IV 02/16/25 10:00 02/16/25 09:23 80 MG Examination: GENERAL:Normal, CVS:Normal laboratory and microbiology Laboratory Tests 02/16/25 07:24 Test 02/16/25 07:24 Range/Units Serum Glucose 90 74-106 mg/dL Problem List/Assessment/Plan Problem List/Assessment/Plan 71-year-old male past medical history of end-stage renal disease on hemodialysis presented to the hospital after missed dialysis End-stage renal disease Hypertension Hypervolemia Anemia due to chronic kidney disease History of substance abuse Diabetes Status post hemodialysis treatment yesterday tolerated well, clinically euvolemic Recommend convert to diuretics p.o. for outpatient Patient has a hemodialysis chair time on Tuesday. From a nephrology standpoint patient can be discharged to resume outpatient dialysis Plan discussed with: Patient RADHA NUÑEZ MD February 16, 2025 10:29
[2025-02-16 12:43] VITALS: BP 143/59; PULSE 58; RESP 18; TEMP 97.9; O2SAT 95
[2025-02-16 13:22] VITALS: BP 143/59; PULSE 58; RESP 18; TEMP 97.9; O2SAT 95
--- NOTE | 2025-02-18 20:00 | DVHDSRES ---
Discharge Summary Date of Admission Resident Creating Document: MILA HOYT RESIDENT February 14, 2025 at 21:53 Date of Discharge: February 16, 2025 Admitting Diagnosis fluid overload Labs/Diagnostic Data: PATIENT: HILTON COLEMAN AACCT: [id number] UNIT: [id number] : 12/08/1954 LOC: OVERFLOW ROOM / BED: [address] [place] [address] / AGE / SEX: 70 / M ADM STATUS: ADM IN SERVICE 0139 ORDERING PHYSICIAN: CAITLIN ROMERO PROCEDURE(s): BLDVT - BiLat Lower DVT REASON: Bilateral leg swelling ORDER NUMBER(s): [id number], ACCESSION NUMBER(s): [id number] Examination: BLDVT CLINICAL INDICATION: to rule out VTE COMPARISON: None. TECHNIQUE: Using real-time ultrasonic imaging and color Doppler the deep venous system of both lower extremities was studied from the level of the common femoral veins to the posterior tibial veins. FINDINGS: Ultrasound examination of bilateral common femoral veins, bilateral deep femoral veins, the proximal, middle and distal segments of bilateral superficial femoral veins, bilateral popliteal veins, and bilateral posterior tibial veins reveal normal phasicity and compression and augmentation. No thrombus was visualized. Enlarged lymphnodes seen in bilateral groin largest measuring 48 mm on right and 44 mm on left. Bilateral lower limb edema is seen IMPRESSION: 1. There is no evidence of superficial or deep venous thrombosis in bilateral lower extremity venous systems. 2. Enlarged lymphnodes seen in bilateral groin. 3. Bilateral lower limb edema is seen. Electronically Signed 02/15/2025 03:22 Gasper Dickerson ATED BY: JULIAN GOOD MD DICTATED DATE/TIME: 02/15/25 0322 PATIENT: HILTON COLEMAN AACCT: [id number] UNIT: [id number] : 12/08/1954 LOC: ER ROOM / BED: / AGE / SEX: 70 / M ADM STATUS: REG ER SERVICE 1839 ORDERING PHYSICIAN: SHANTE SCHULZ DO PROCEDURE(s): CXRP - CHEST PORTABLE REASON: weak, dizzy, sob, leg edema, missed HD ORDER NUMBER(s): [id number], ACCESSION NUMBER(s): [id number] CHEST RADIOGRAPH Indication: weak, dizzy, sob, leg edema, missed HD Technique: Single frontal view of the chest was obtained Comparison: XY CHEST PORTABLE on DOS: 11/25/24, XY CHEST PORTABLE on DOS: 08/06/24, XY CHEST PORTABLE on DOS: 01/03/24 FINDINGS: Lines and Tubes: Hemodialysis catheter from the right internal jugular vein with the tip at the cavoatrial junction or within the right atrium. Lungs: No focal consolidation. Pleura: No effusion. No pneumothorax. Cardiomediastinal contours: Unremarkable Bones: No acute osseous abnormality. IMPRESSION: 1. Right internal jugular catheter in place in the right atrium or cavoatrial junction. 2. No significant cardiopulmonary findings from 11/25/2024. ATED BY: XOCHITL ELLIOTT Jr. DO DICTATED DATE/TIME: 02/14/251918 Laboratory Results Test 02/16/25 07:24 02/15/25 10:08 02/15/25 05:47 02/15/25 00:50 White Blood Count 5.8 10^3/uL (4.4-10.8) Red Blood Count 3.15 10^6/uL (4.5-5.90) Hemoglobin 10.3 g/dL (13.5-17.5) Hematocrit 30.3 % (41.0-53.0) Mean Corpuscular Volume 96.3 fL (80.0-100.0) Mean Corpuscular Hemoglobin 32.7 pg (28.0-32.0) Mean Corpuscular Hemoglobin Concent 33.9 g/dL (32.0-36.0) Red Cell Distribution Width 14.7 % (11.8-14.3) Platelet Count 152 10^3/uL (140-450) Mean Platelet Volume 8.3 fL (6.9-10.8) Neutrophils (%) (Auto) 69.3 % (37.0-80.0) Lymphocytes (%) (Auto) 21.1 % (10.0-50.0) Monocytes (%) (Auto) 7.2 % (0.0-12.0) Eosinophils (%) (Auto) 1.7 % (0.0-7.0) Basophils (%) (Auto) 0.7 % (0.0-2.0) Neutrophils # (Auto) 4.1 10 ^3/uL (1.6-8.6) Lymphocytes # (Auto) 1.2 10 ^3/uL (0.4-5.4) Monocytes # (Auto) 0.4 10 ^3/uL (0-1.3) Eosinophils # (Auto) 0.1 10 ^3/uL (0-0.8) Basophils # (Auto) 0 10 ^3/uL (0-0.2) Nucleated Red Blood Cells 0.1 % Sodium Level 141 mmol/L (136-145) Potassium Level 3.6 mmol/L (3.5-5.1) Chloride Level 105 mmol/L (98-107) Carbon Dioxide Level 27 mmol/L (20-31) Anion Gap 9 (5-15) Blood Urea Nitrogen 39 mg/dL (9-23) Creatinine 4.79 mg/dL (0.700-1.30) Glomerular Filtration Rate Calc 13 mL/min (>90) BUN/Creatinine Ratio 8.1 (10.0-20.0) Serum Glucose 90 mg/dL (74-106) Calcium Level 9.3 mg/dL (8.7-10.4) Phosphorus Level 5.3 mg/dL (2.4-5.1) Magnesium Level 2.0 mg/dL (1.6-2.6) Influenza Type A Antigen Negative (Negative) Influenza Type B Antigen Negative (Negative) SARS-CoV-2 Antigen (Rapid) Negative (NEGATIVE) Prothrombin Time 11.0 sec (9.3-11.8) Prothrombin Time INR 1.04 (0.9-1.15) Activated Partial Thromboplast Time 32.6 SEC (24.5-34.5) Hemoglobin A1c 5.0 % A1C (<5.7) Iron Level 58 ug/dL (65-175) Total Iron Binding Capacity 238 ug/dL (250-425) Percent Iron Saturation 24.4 % (20-55) Ferritin 154.1 ng/mL (22-322) Total Bilirubin 0.4 mg/dL (0.2-1.0) Aspartate Amino Transferase (AST) 18 U/L (13-40) Alanine Aminotransferase (ALT) 9 U/L (7-40) Alkaline Phosphatase 85 U/L (46-116) Total Protein 6.1 g/dL (5.7-8.2) Albumin 3.7 g/dL (3.2-4.8) Vitamin B12 Level 229 pg/mL (211-911) Vitamin D 25-Hydroxy 35.8 ng/mL (30.0-100) Folic Acid 8.83 ng/mL (>5.38) Parathyroid Hormone (Intact) 297.7 pg/mL (18.4-80.1) Hepatitis A IgM Antibody Negative Hepatitis B Surface Antigen Negative (Negative) Hepatitis B Core IgM Antibody Negative (Negative) Hepatitis C Antibody Negative (Negative) Urine Color Colorless (Yellow) Urine Clarity Clear (Clear) Urine pH 6.5 (5.0-9.0) Urine Specific [place] 1.011 (1.001-1.035) Urine Protein 2+ (Negative) Urine Ketones Negative (Negative) Urine Blood 1+ /uL (Negative) Urine Nitrite Negative (Negative) Urine Bilirubin Negative (Negative) Urine Urobilinogen Normal mg/dL (Negative) Urine Leukocyte Esterase Negative /uL (Negative) Urine RBC 16 /hpf (0 - 3) Urine Microscopic WBC 2 /HPF (0-3) Urine Squamous Epithelial Cells Few /hpf (<5) Urine Bacteria None seen /hpf (None Seen) Urine Glucose Trace mg/dL (Normal) Urine Opiates Screen Neg (NEGATIVE) Urine Fentanyl Screen Neg (NEGATIVE) Urine Barbiturates Screen Neg (NEGATIVE) Urine Phencyclidine Screen Neg (NEGATIVE) Urine Amphetamines Screen Neg (NEGATIVE) Urine Benzodiazepines Screen Neg (NEGATIVE) Urine Cocaine Screen Neg (NEGATIVE) Urine Cannabinoids Screen Pos (NEGATIVE) Test 02/14/25 22:23 02/14/25 18:51 02/14/25 18:42 Troponin I High Sensitivity 41 ng/L (</=54) Lactic Acid Level 0.6 mmol/L (0.4-2.0) B-Type Natriuretic Peptide 985.66 pg/mL (0-100) Thyroid Stimulating Hormone (TSH) 2.93 uIU/mL (0.55-4.78) POC Glucose 96 mg/dl (70-106) Other Laboratory Tests 02/16/25 07:24 Brief Hx & Hospital Course: History of Present Illness Patient is 70 years old male with past medical history of hypertension, diabetes mellitus type 2, ESRD on hemodialysis-has a dialysis catheter on the right side of the chest, CHF, hyperlipidemia, anemia came with a complaint of shortness of breaths. As per patient he has been having shortness of breath started today morning. Patient also reported he has some pressure-like chest pain with the shortness of breaths. Also feeling dizzy and weak but no passing out. Patient also reported his leg swelling got worse today. Patient missed his dialysis after last 1 had on Tuesday due to insurance issue. Patient also reported he ran out of [employer] and could not bite. Patient's. Was LVEF was 55% on 08/07/2024. Patient denied any fever, acute joint redness, sick contact, diarrhea, change in vision or dysarthria. Initial lab workup revealed anemia with a hemoglobin 9.2, RDW 15, serum creatinine 6. Four 5. BNP 986. Troponin I with a normal limit. UDS positive for cannabinoids.. Doppler study of the lower extremity negative for DVT. Bilateral inguinal lymphadenopa Past Medical History: hypertension, diabetes mellitus type 2, ESRD on hemodialysis, CHF, hyperlipidemia, anemia Past Surgical History: Has a dialysis catheter in the right side of the chest Family History: Both mom and dad had diabetes mellitus Past Social History:Lives in a rental room, use marijuana, denies alcoholism or smoking Brief Hospital course Patient is a 70-year-old male with a history of diabetes, hypertension, CHF, end-stage renal disease on hemodialysis presented to the ED because he was unable to get his dialysis due to insurance reasons. According to the patient he has been having shortness of breath that started yesterday morning. Patient also reported pressure-like chest pain. He also felt dizzy and weak and but did not pass out. Patient also reported pain in his left knee whenever he gets fluid overloaded. His last dialysis was on Tuesday. He denies fever and chills. Initial lab workup revealed anemia with a hemoglobin 9.2, RDW 15, serum creatinine 6.44 BNP 986. Troponin I with a normal limit. UDS positive for cannabinoids. Doppler study of the lower extremity negative for DVT. Chest x- ray showed 1. Right internal jugular catheter in place in the right atrium or cavoatrial junction. No significant cardiopulmonary findings from 11/25/2024. Echo showed EF 57%. Patient was seen by the etl manager who arranged for HD for the patient. Patient received dialysis and was euvolemia prior to discharge. Patient is doing well and stable for discharge. Review of Systems Constitutional: Denies fever no chills no feeling of malaise HEENT: Denies headache, ear pain, ear discharges, conjunctivitis, nasal discharge throat pain Cardiovascular: Denies chest pain, palpitation, orthopnea, PND, or pedal edema Respiratory: Denies shortness of breath, cough cough, sputum production, hemoptysis, GI: Denies abdominal pain, nausea, vomiting, diarrhea, hematemesis, hematochezia, : Denies frequency, urgency, hematuria, Endocrine: Denies unintentional weight gain or weight loss, feeling of hot flashes, Neftaly: Denies easy bruising, bleeding disorders, epistaxis Musculoskeletal: Denies joint pains, muscle aches Psych: No evidence of depression, miguel, suicidal ideation Examination General Appearance: Alert, Oriented X3, Cooperative, No acute distress HEENT: Atraumatic, PERRLA, EOMI, Mucous membrane moist/pink Respiratory: Clear to auscultation, Normal air movement Cardiovascular: Regular rate, Normal S1, Normal S2, No murmurs, no chest wall tenderness Abdominal: NO distention, no tenderness, bowel sounds present, no scars noted Extremities: No clubbing, No cyanosis, No edema, Normal pulses, No tenderness/swelling Skin: No rashes, No breakdown, No significant lesion Neuro: Normal gait, Normal speech, Strength at 5/5 X4 ext, Normal tone, Sensation intact, Cranial nerves 3-12 NL, Reflexes 2+ Psych/Mental Status: Mental status NL, Mood NL Diagnoses Fluid overload secondary to missed hemodialysis ESRD on hemodialysis // - last HD 02/08 Hypertensive urgency Diabetes mellitus type 2 for more than 10 years Acute on chronic exacerbation HFpEF Anemia of chronic kidney disease Hyperphosphatemia Hyperlipidemia History of asthma History of polysubstance use dependence Hypertensive urgency Diabetes mellitus type 2 Hyperlipidemia Bilateral inguinal lymphadenopathy Obesity grade 1, BMI 30.9 Discharge plan Stable for discharge follow with the insurance company to resolved the insurance issues follow up PCP Follow up the discharge clinic in a week Discharge plan discussed with Dr. Tam Consults/Reason for consult Nephrology: fluid overload Condition at Discharge: Good Final Diagnosis/Problems List Fluid overload secondary to missed hemodialysis ESRD on hemodialysis // - last HD 02/08 Hypertensive urgency Diabetes mellitus type 2 for more than 10 years Acute on chronic exacerbation HFpEF Anemia of chronic kidney disease Hyperphosphatemia Hyperlipidemia History of asthma History of polysubstance use dependence Hypertensive urgency Diabetes mellitus type 2 Hyperlipidemia Bilateral inguinal lymphadenopathy Obesity grade 1, BMI 30.9 Discharge Disposition: Home Discharge Instruct/Medications Diet: Renal Activity: No Restrictions, As Tolerated Follow Up/Referral: pcp in 7 days Medications: home medications Discharge Statement: "Patient was advised to return to the ER or call 911 if any headaches, dizziness, shortness of breath, chest pain, abdominal pain, bleeding, fevers, or worsening of medical condition. Patient was counseled about treatment plan, medications, possible side effects, patientverbalized understanding. All questions were answered to the best of my ability. This discharge took greater then 30 minutes in planning, reviewing documentation, counseling the patient, and discussing with other team members." ASSESSMENT ASSESSMENT Assessment ESRD on HD fluid overload pulmonary edema MILA HOYT RESIDENT Feb 18, 2025 20:00
== END 2025-02-16 13:48 | disposition home or self-care (01) | DRG 291 ==
LOC: ER 18:25 → OVERFLOW 21:53 → TELE-WESTW 02-15 16:00
PROVIDERS: ADMIT Hospitalist; ATTEND Hospitalist
DX: I13.2 Hypertensive heart and chronic kidney disease with heart failure and with stage 5 chronic kidney disease, or end stage renal disease (principal); I50.33 Acute on chronic diastolic (congestive) heart failure; N18.6 End stage renal disease; E11.22 Type 2 diabetes mellitus with diabetic chronic kidney disease; D63.1 Anemia in chronic kidney disease; I16.0 Hypertensive urgency; E78.5 Hyperlipidemia, unspecified; R59.0 Localized enlarged lymph nodes; E83.39 Other disorders of phosphorus metabolism; E66.811 Obesity, class 1; Z91.158 Patient's noncompliance with renal dialysis for other reason; Z83.3 Family history of diabetes mellitus; Z99.2 Dependence on renal dialysis; Z68.30 Body mass index [BMI] 30.0-30.9, adult; Z79.899 Other long term (current) drug therapy
CPT/HCPCS: 36415; 71045; 80048; 80053; 80074; 80307; 81001; 82306; 82607; 82728; 82746; 82962; 83036; 83540; 83550; 83605; 83735; 83880; 83970; 84100; 84443; 84484; 85025; 85610; 85730; 86850; 86900; 86901; 87081; 87426; 87804; 93005; 93306; 93970; 96374; 96375; 99291; G0378

== ENCOUNTER 2025-02-23 15:33 | Inpatient (IN) | payer OTHER, MEDICAID ==
[~2025-02-23] VITALS: Ht 162.6 cm; Wt 76.2 kg
--- NOTE | 2025-02-23 16:31 | ED.PDOC ---
History of Present Illness HPI Comments 70 y/o M, with PMHx of anemia, CHF, CKF, DM, ESRD on dialysis, HTN, and HLD presents to the ED for CC of generalized weakness. Patient states, he has been experiencing symptoms or generalized weakness d/t not receiving dialysis for [id number]. Patient reports, that he went to dialysis center x3days ago and was turned away d/t lack of insurance coverage Patient denies fatigue, weakness, nausea, vomiting, or diarrhea. No other symptoms or modifying factors present at this time. Chief Complaint: General Weakness Time Seen by MD: 16:00 Primary Care Provider: n/a Reviewed Notes: Nurses Notes, Medications, Allergies Allergies: Coded Allergies: NO KNOWN ALLERGIES (Unverified , 05/07/18) Home Meds Active Scripts Atorvastatin Calcium (ATORVASTATIN CALCIUM) 20 Mg Tab, 1 TAB PO DAILY, #30 TAB 5 Refills Prov:VINITA RICHARDS MD 11/28/24 Hydralazine HCl (Hydralazine HCl) 25 Mg Tab, 25 MG PO TID, #90 TAB 3 Refills Prov:VINITA RICHARDS MD 11/28/24 Metoprolol Succinate (Metoprolol Succinate Er) 50 Mg Tab, 1 TAB PO BID, #60 TAB 5 Refills Prov:VINITA RICHARDS MD 11/28/24 Nifedipine (Nifedipine Er) 60 Mg Tab, 1 TAB PO DAILY, #30 TAB 5 Refills Prov:VINITA RICHARDS MD 11/28/24 Nifedipine (Nifedipine Er) 30 Mg Tab, 1 TAB PO DAILY for 30 Days, #30 TAB 3 Refills Prov:GLORIA LEYVA NP 08/09/24 Atorvastatin Calcium (ATORVASTATIN CALCIUM) 20 Mg Tab, 20 MG PO HS for 30 Days, #30 TAB 3 Refills Prov:UMA GARNICA MD 12/23/23 Metoprolol Tartrate (LOPRESSOR TABLET) 50 Mg Tb, 50 MG PO BID for 30 Days, #60 TAB 3 Refills Prov:UMA GARNICA MD 12/23/23 Reported Medications Ferrous Sulfate (Ferosul) 325 Mg Tab, 1 TAB PO DAILY 12/20/23 Information Source: Patient Mode of Arrival: Ambulatory Severity: Moderate Timing: Weeks Duration: Since onset Prehospital treatment: None Past Medical History PAST MEDICAL HISTORY: Anemia, CHF, CKF, DM, ESRD, High Lipids, HTN Surgical History: Denies all surgeries Family History Family History: Reviewed,noncontributory to illness Social History Smoker: Non-Smoker Alcohol: Denies ETOH Use Drugs: Denies Drug Use Lives In: Home Constitutional: reports: fatigue, weakness; denies: chills, diaphoresis, fever, malaise, sweats, others EENTM: denies: blurred vision, double vision, ear bleeding, ear discharge, ear drainage, ear pain, ear ringing, eye pain, eye redness, hearing loss, mouth pain, mouth swelling, nasal discharge, nose bleeding, nose congestion, nose pain, photophobia, tearing, throat pain, throat swelling, voice changes, others Respiratory: denies: cough, hemoptysis, orthopnea, SOB at rest, shortness of breath, SOB with excertion, stridor, wheezing, others Cardiovascular: denies: chest pain, dizzy spells, diaphoresis, Dyspnea on exertion, edema, irregular heart beat, left arm pain, lightheadedness, palpitations, PND, syncope, others Gastrointestinal: denies: abdomen distended, abdominal pain, blood streaked bowels, constipated, diarrhea, dysphagia, difficulty swallowing, hematemesis, melena, nausea, poor appetite, poor fluid intake, rectal bleeding, rectal pain, vomiting, others Genitourinary: denies: burning, dysuria, flank pain, frequency, hematuria, incontinence, penile discharge, penile sore, pain, testicle pain, testicle swelling, urgency, others Neurological: denies: dizziness, fainting, headache, left sided numbness, left sided weakness, numbness, paresthesia, pre-existing deficit, right sided numbness, right sided weakness, seizure, speech problems, tingling, tremors, weakness, others Musculoskeletal: denies: back pain, gout, joint pain, joint swelling, muscle pain, muscle stiffness, neck pain, others Integumetry: denies: bruises, change in color, change in hair/nails, dryness, laceration, lesions, lumps, rash, wounds, others Allergic/Immunocompromised: denies: Difficulty Healing, Frequent Infections, Hives, Itching, others Hematologic/Lymphatic: denies: anemia, blood clots, easy bleeding, easy bruising, swollen glands, others Endocrine: denies: excessive hunger, excessive sweating, excessive thirst, excessive urination, flushing, intolerance to cold, intolerance to heat, unexplained weight gain, unexplained weight loss, others Psychiatric: denies: anxiety, bipolar disorder, depression, hopeless, panic disorder, schizophrenia, sleepless, suicidal, others All Other Systems: Reviewed and Negative ( PER HPI) Physical Exam General Appearance: Moderate Distress (Due to generalized weakness. Patient appears to be in poor overall health.), Normal HEENT: Normal ENT Inspection, Pharynx Normal, TMs Normal Neck: Full Range of Motion, Non-Tender, Normal, Normal Inspection Respiratory: Chest Non-Tender, Lungs Clear, No Accessory Muscle Use, No Respiratory Distress, Normal Breath Sounds Cardiovascular: No Edema, No JVD, No Murmur, No Gallop, Normal Peripheral Pulses, Regular Rate/Rhythm Breast Exam: Deferred Gastrointestinal: No Organomegaly, Non Tender, No Pulsatile Mass, Normal Bowel Sounds, Soft Genitalia: Deferred Pelvic: Deferred Rectal: Deferred Extremities: No calf tenderness, Normal capillary refill, Normal inspection, Normal range of motion, Non-tender, No pedal edema Neurologic: Alert, No Motor Deficits, Normal Affect, Normal Mood, No Sensory Deficits Cerebellar Function: Normal Reflexes: Normal Skin: Dry, Normal Color, Warm Lymphatic: No Adenopathy Was a procedure done? Was a procedure done?: No Differential Dx Considerations may include: fluid overload, electrolyte imbalance, acute CHF exacerbation, end-stage renal disease on dialysis X-Ray, Labs, Meds, VS Vital Signs Date Time Temp Pulse Resp B/P (MAP) Pulse Ox O2 Delivery O2 Flow Rate FiO2 02/23/25 15:42 98.7 64 20 139/70 (93) 96 98.7 Lab Test 02/23/25 16:28 02/23/25 15:46 Range/Units White Blood Count 7.1 4.4-10.8 10^3/uL Red Blood Count 3.18 L 4.5-5.90 10^6/uL Hemoglobin 10.3 L 13.5-17.5 g/dL Hematocrit 30.3 L 41.0-53.0 % Mean Corpuscular Volume 95.6 80.0-100.0 fL Mean Corpuscular Hemoglobin 32.3 H 28.0-32.0 pg Mean Corpuscular Hemoglobin Concent 33.8 32.0-36.0 g/dL Red Cell Distribution Width 14.3 11.8-14.3 % Platelet Count 201 140-450 10^3/uL Mean Platelet Volume 8.2 6.9-10.8 fL Neutrophils (%) (Auto) 74.4 37.0-80.0 % Lymphocytes (%) (Auto) 16.6 10.0-50.0 % Monocytes (%) (Auto) 6.1 0.0-12.0 % Eosinophils (%) (Auto) 2.0 0.0-7.0 % Basophils (%) (Auto) 0.9 0.0-2.0 % Neutrophils # (Auto) 5.3 1.6-8.6 10 ^3/uL Lymphocytes # (Auto) 1.2 0.4-5.4 10 ^3/uL Monocytes # (Auto) 0.4 0-1.3 10 ^3/uL Eosinophils # (Auto) 0.1 0-0.8 10 ^3/uL Basophils # (Auto) 0.1 0-0.2 10 ^3/uL Nucleated Red Blood Cells 0.0 % Sodium Level 142 136-145 mmol/L Potassium Level 4.7 3.5-5.1 mmol/L Chloride Level 107 98-107 mmol/L Carbon Dioxide Level 22 20-31 mmol/L Anion Gap 13 5-15 Blood Urea Nitrogen 84 *H 9-23 mg/dL Creatinine 7.31 H 0.700-1.30 mg/dL Glomerular Filtration Rate Calc 8 >90 mL/min BUN/Creatinine Ratio 11.5 10.0-20.0 Serum Glucose 115 H 74-106 mg/dL Calcium Level 9.0 8.7-10.4 mg/dL Total Bilirubin 0.5 0.2-1.0 mg/dL Aspartate Amino Transferase (AST) 17 13-40 U/L Alanine Aminotransferase (ALT) < 9 7-40 U/L Alkaline Phosphatase 83 46-116 U/L Troponin I High Sensitivity 43 </=54 ng/L B-Type Natriuretic Peptide 1307.93 0-100 pg/mL Total Protein 6.8 5.7-8.2 g/dL Albumin 4.0 3.2-4.8 g/dL POC Glucose 117 H 70-106 mg/dl [facility] [address] [facility] [address] Ph: [phone] DIAGNOSTIC IMAGING Diagnostic Imaging Report : [id number] Signed PATIENT: HILTON COLEMAN AACCT: [id number] UNIT: [id number] : 12/08/1954 LOC: ER ROOM / BED: / AGE / SEX: 70 / M ADM STATUS: REG ER SERVICE 1616 ORDERING PHYSICIAN: ANTHONY BANG PAC PROCEDURE(s): CXRP - CHEST PORTABLE REASON: Chest pain ORDER NUMBER(s): [id number], ACCESSION NUMBER(s): [id number] EXAM: XY CHEST PORTABLE TECHNIQUE: Single frontal chest radiograph CLINICAL HISTORY: Chest pain COMPARISON: XY CHEST PORTABLE on DOS: 02/14/25, XY CHEST PORTABLE on DOS: 11/25/24, XY CHEST PORTABLE on DOS: 08/06/24 Findings/Impression: Frontal chest radiograph demonstrates no acute osseous or superficial soft tissue abnormalities. Tunneled right-sided HD catheter terminates near the superior cavoatrial junction. The trachea is midline. The cardiac silhouette and mediastinum are within normal limits. No pneumothorax, pleural effusions, or consolidations. ATED BY: PHYLLIS ALVARADO DO DICTATED DATE/TIME: 02/23/251723 SIGNED BY: PHYLLIS ALVARADO DO SIGNED DATE/TIME: 02/23/251723 CC: X-Ray, Labs, Meds, VS Comment All studies performed the ED were evaluated by me personally. Laboratories studies revealed a anemia, a significant acute CHF exacerbation as well as confirmation of the acute on chronic renal injury resulting in end-stage renal disease. Patient will be admitted for dialysis and fluid management. Time of 1ST Reevaluation: 17:38 Reevaluation 1ST: Improved Consultation: PCP Patient Education/Counseling: Diagnosis, Treatment Family Education/Counseling: Diagnosis, Treatment, No Family Present Departure 1 Departure Time of Disposition: 17:39 Impression: Primary Impression: End-stage renal disease on hemodialysis Additional Impressions: Acute exacerbation of CHF (congestive heart failure) Anemia Disposition: ADMITTED INPATIENT Condition: Fair Discharged With: Self Critical Care Note Critical Care Time?: No Stability Stability form required: No Heart Score Heart Score: Heart Score Response (Comments) Value History Slightly Suspicious 0 EKG Repolarization Disturb 1 Age >65 2 Risk Factors 1 or 2 risk factors 1 Troponin Normal limit 0 Total 4 I personally scribed for ANTHONY BANG PAC ([email or web address]) on 02/23/25 at 16:31. Electronically submitted by Korina Rausch ([email or web address]). I personally scribed for ANTHONY BANG PAC ([email or web address]) on 02/23/25 at 16:41. E lectronically submitted by Korina Rausch ([email or web address]). I personally scribed for HOLA AVELAR MD ([email or web address]) on 02/23/25 at 17 :46. Electronically submitted by Korina Rausch ([email or web address]). ANTHONY BANG PAC Feb 23, 2025 16:31 HOLA AVELAR MD Feb 23, 2025 17:46
[2025-02-23 17:10] LABS: Basophils # (auto) 0.1 10 ^3/uL (0-0.2); Basophils % (auto) 0.9 % (0.0-2.0); Eosinophils # (auto) 0.1 10 ^3/uL (0-0.8); Hematocrit 30.3 % (41.0-53.0); Hemoglobin 10.3 g/dL (13.5-17.5); Lymphocytes # (auto) 1.2 10 ^3/uL (0.4-5.4); Lymphocytes % (auto) 16.6 % (10.0-50.0); Mean Corpuscular Hemoglobin 32.3 pg (28.0-32.0); Mean Corpuscular Hgb Conc. 33.8 g/dL (32.0-36.0); Mean Corpuscular Volume 95.6 fL (80.0-100.0); Monocytes # (auto) 0.4 10 ^3/uL (0-1.3); Monocytes % (auto) 6.1 % (0.0-12.0); Neutrophils # (auto) 5.3 10 ^3/uL (1.6-8.6); Neutrophils % (auto) 74.4 % (37.0-80.0); Platelet Count (auto) 201 10^3/uL (140-450); Red Blood Cells 3.18 10^6/uL (4.5-5.90); Red Cell Distribution Width 14.3 % (11.8-14.3); White Blood Cell 7.1 10^3/uL (4.4-10.8)
[2025-02-23 17:20] LABS: Alkaline Phosphatase 83 U/L (46-116); Anion Gap 13 (5-15); Aspartate Aminotransferase 17 U/L (13-40); BUN/Creatinine Ratio 11.5 (10.0-20.0); Bilirubin, Total 0.5 mg/dL (0.2-1.0); Carbon Dioxide 22 mmol/L (20-31); Potassium 4.7 mmol/L (3.5-5.1); Sodium 142 mmol/L (136-145); Total Protein 6.8 g/dL (5.7-8.2)
[2025-02-23 17:23] LABS: Alanine Aminotransferase < 9 U/L (7-40); Chloride 107 mmol/L (98-107); Glucose 115 mg/dL (74-106)
[2025-02-23 17:25] LABS: Blood Urea Nitrogen 84 mg/dL (9-23)
--- NOTE | 2025-02-23 17:26 | DVH ---
EXAM: XY CHEST PORTABLE TECHNIQUE: Single frontal chest radiograph CLINICAL HISTORY: Chest pain COMPARISON: XY CHEST PORTABLE on DOS: 02/14/25, XY CHEST PORTABLE on DOS: 11/25/24, XY CHEST PORTABLE on DOS: 08/06/24 Findings/Impression: Frontal chest radiograph demonstrates no acute osseous or superficial soft tissue abnormalities. Tunn eled right-sided HD catheter terminates near the superior cavoatrial junction. The trachea is midline. The cardiac silhouette and mediastinum are within normal limits. No pneumothorax, pleural effusions, or consolidations.
--- NOTE | 2025-02-23 17:50 | ED.PDOC ---
History of Present Illness HPI Comments 70 y/o M, with PMHx of anemia, CHF, CKF, DM, ESRD on dialysis, HTN, and HLD presents to the ED for CC of generalized weakness. Patient states, he has been experiencing symptoms or generalized weakness d/t not receiving dialysis for [id number]. Patient reports, that he went to dialysis center x3days ago and was turned away d/t lack of insurance coverage Patient denies fatigue, weakness, nausea, vomiting, or diarrhea. No other symptoms or modifying factors present at this time. Chief Complaint: General Weakness Time Seen by MD: 16:00 Primary Care Provider: n/a Reviewed Notes: Nurses Notes, Medications, Allergies Allergies: Coded Allergies: NO KNOWN ALLERGIES (Unverified , 05/07/18) Home Meds Active Scripts Atorvastatin Calcium (ATORVASTATIN CALCIUM) 20 Mg Tab, 1 TAB PO DAILY, #30 TAB 5 Refills Prov:VINITA RICHARDS MD 11/28/24 Hydralazine HCl (Hydralazine HCl) 25 Mg Tab, 25 MG PO TID, #90 TAB 3 Refills Prov:VINITA RICHARDS MD 11/28/24 Metoprolol Succinate (Metoprolol Succinate Er) 50 Mg Tab, 1 TAB PO BID, #60 TAB 5 Refills Prov:VINITA RICHARDS MD 11/28/24 Nifedipine (Nifedipine Er) 60 Mg Tab, 1 TAB PO DAILY, #30 TAB 5 Refills Prov:VINITA RICHARDS MD 11/28/24 Nifedipine (Nifedipine Er) 30 Mg Tab, 1 TAB PO DAILY for 30 Days, #30 TAB 3 Refills Prov:GLORIA LEYVA NP 08/09/24 Atorvastatin Calcium (ATORVASTATIN CALCIUM) 20 Mg Tab, 20 MG PO HS for 30 Days, #30 TAB 3 Refills Prov:UMA GARNICA MD 12/23/23 Metoprolol Tartrate (LOPRESSOR TABLET) 50 Mg Tb, 50 MG PO BID for 30 Days, #60 TAB 3 Refills Prov:UMA GARNICA MD 12/23/23 Reported Medications Ferrous Sulfate (Ferosul) 325 Mg Tab, 1 TAB PO DAILY 12/20/23 Information Source: Patient Mode of Arrival: Ambulatory Severity: Moderate Timing: Weeks Duration: Since onset Prehospital treatment: None Past Medical History PAST MEDICAL HISTORY: Anemia, CHF, CKF, DM, ESRD, High Lipids, HTN Surgical History: Denies all surgeries Family History Family History: Reviewed,noncontributory to illness Social History Smoker: Non-Smoker Alcohol: Denies ETOH Use Drugs: Denies Drug Use Lives In: Home Constitutional: reports: fatigue, weakness; denies: chills, diaphoresis, fever, malaise, sweats, others EENTM: denies: blurred vision, double vision, ear bleeding, ear discharge, ear drainage, ear pain, ear ringing, eye pain, eye redness, hearing loss, mouth pain, mouth swelling, nasal discharge, nose bleeding, nose congestion, nose pain, photophobia, tearing, throat pain, throat swelling, voice changes, others Respiratory: denies: cough, hemoptysis, orthopnea, SOB at rest, shortness of breath, SOB with excertion, stridor, wheezing, others Cardiovascular: denies: chest pain, dizzy spells, diaphoresis, Dyspnea on exertion, edema, irregular heart beat, left arm pain, lightheadedness, palpitations, PND, syncope, others Gastrointestinal: denies: abdomen distended, abdominal pain, blood streaked bowels, constipated, diarrhea, dysphagia, difficulty swallowing, hematemesis, melena, nausea, poor appetite, poor fluid intake, rectal bleeding, rectal pain, vomiting, others Genitourinary: denies: burning, dysuria, flank pain, frequency, hematuria, incontinence, penile discharge, penile sore, pain, testicle pain, testicle swelling, urgency, others Neurological: denies: dizziness, fainting, headache, left sided numbness, left sided weakness, numbness, paresthesia, pre-existing deficit, right sided numbness, right sided weakness, seizure, speech problems, tingling, tremors, weakness, others Musculoskeletal: denies: back pain, gout, joint pain, joint swelling, muscle pain, muscle stiffness, neck pain, others Integumetry: denies: bruises, change in color, change in hair/nails, dryness, laceration, lesions, lumps, rash, wounds, others Allergic/Immunocompromised: denies: Difficulty Healing, Frequent Infections, Hives, Itching, others Hematologic/Lymphatic: denies: anemia, blood clots, easy bleeding, easy bruising, swollen glands, others Endocrine: denies: excessive hunger, excessive sweating, excessive thirst, excessive urination, flushing, intolerance to cold, intolerance to heat, unexplained weight gain, unexplained weight loss, others Psychiatric: denies: anxiety, bipolar disorder, depression, hopeless, panic disorder, schizophrenia, sleepless, suicidal, others All Other Systems: Reviewed and Negative Physical Exam General Appearance: No Apparent Distress, Normal HEENT: Normal ENT Inspection, Pharynx Normal Neck: Full Range of Motion, Non-Tender, Normal, Normal Inspection Respiratory: Chest Non-Tender, Lungs Clear, No Accessory Muscle Use, No Respiratory Distress, Normal Breath Sounds Cardiovascular: No Edema, No Murmur, No Gallop, Normal Peripheral Pulses, Regular Rate/Rhythm Breast Exam: Deferred Gastrointestinal: No Organomegaly, Non Tender, No Pulsatile Mass, Normal Bowel Sounds, Soft Genitalia: Deferred Pelvic: Deferred Rectal: Deferred Extremities: No calf tenderness, Normal capillary refill, Normal inspection, Normal range of motion, Non-tender, No pedal edema Musculoskeletal : Apperance: Normal Neurologic: Alert, No Motor Deficits, Normal Affect, Normal Mood, No Sensory Deficits Cerebellar Function: Normal Reflexes: Normal Skin: Dry, Normal Color, Warm Lymphatic: No Adenopathy Was a procedure done? Was a procedure done?: No Differential Dx Considerations may include: fluid overload, electrolyte imbalance, acute CHF exacerbation, end-stage renal disease on dialysis X-Ray, Labs, Meds, VS Vital Signs Date Time Temp Pulse Resp B/P (MAP) Pulse Ox O2 Delivery O2 Flow Rate FiO2 02/23/25 17:46 98.2 60 18 159/76 (103) 95 98.2 02/23/25 17:46 60 18 95 Room Air 02/23/25 15:42 98.7 64 20 139/70 (93) 96 98.7 Lab Test 02/23/25 17:40 02/23/25 16:28 02/23/25 15:46 Range/Units Troponin I High Sensitivity Pending 43 </=54 ng/L White Blood Count 7.1 4.4-10.8 10^3/uL Red Blood Count 3.18 L 4.5-5.90 10^6/uL Hemoglobin 10.3 L 13.5-17.5 g/dL Hematocrit 30.3 L 41.0-53.0 % Mean Corpuscular Volume 95.6 80.0-100.0 fL Mean Corpuscular Hemoglobin 32.3 H 28.0-32.0 pg Mean Corpuscular Hemoglobin Concent 33.8 32.0-36.0 g/dL Red Cell Distribution Width 14.3 11.8-14.3 % Platelet Count 201 140-450 10^3/uL Mean Platelet Volume 8.2 6.9-10.8 fL Neutrophils (%) (Auto) 74.4 37.0-80.0 % Lymphocytes (%) (Auto) 16.6 10.0-50.0 % Monocytes (%) (Auto) 6.1 0.0-12.0 % Eosinophils (%) (Auto) 2.0 0.0-7.0 % Basophils (%) (Auto) 0.9 0.0-2.0 % Neutrophils # (Auto) 5.3 1.6-8.6 10 ^3/uL Lymphocytes # (Auto) 1.2 0.4-5.4 10 ^3/uL Monocytes # (Auto) 0.4 0-1.3 10 ^3/uL Eosinophils # (Auto) 0.1 0-0.8 10 ^3/uL Basophils # (Auto) 0.1 0-0.2 10 ^3/uL Nucleated Red Blood Cells 0.0 % Sodium Level 142 136-145 mmol/L Potassium Level 4.7 3.5-5.1 mmol/L Chloride Level 107 98-107 mmol/L Carbon Dioxide Level 22 20-31 mmol/L Anion Gap 13 5-15 Blood Urea Nitrogen 84 *H 9-23 mg/dL Creatinine 7.31 H 0.700-1.30 mg/dL Glomerular Filtration Rate Calc 8 >90 mL/min BUN/Creatinine Ratio 11.5 10.0-20.0 Serum Glucose 115 H 74-106 mg/dL Calcium Level 9.0 8.7-10.4 mg/dL Total Bilirubin 0.5 0.2-1.0 mg/dL Aspartate Amino Transferase (AST) 17 13-40 U/L Alanine Aminotransferase (ALT) < 9 7-40 U/L Alkaline Phosphatase 83 46-116 U/L B-Type Natriuretic Peptide 1307.93 0-100 pg/mL Total Protein 6.8 5.7-8.2 g/dL Albumin 4.0 3.2-4.8 g/dL POC Glucose 117 H 70-106 mg/dl [facility] [id number] [address] Ph: [phone] DIAGNOSTIC IMAGING Diagnostic Imaging Report : [id number] Signed PATIENT: HILTON COLEMAN AACCT: [id number] UNIT: [id number] : 12/08/1954 LOC: ER ROOM / BED: / AGE / SEX: 70 / M ADM STATUS: REG ER SERVICE 1616 ORDERING PHYSICIAN: ANTHONY BANG PAC PROCEDURE(s): CXRP - CHEST PORTABLE REASON: Chest pain ORDER NUMBER(s): [id number], ACCESSION NUMBER(s): [id number] EXAM: XY CHEST PORTABLE TECHNIQUE: Single frontal chest radiograph CLINICAL HISTORY: Chest pain COMPARISON: XY CHEST PORTABLE on DOS: 02/14/25, XY CHEST PORTABLE on DOS: 11/25/24, XY CHEST PORTABLE on DOS: 08/06/24 Findings/Impression: Frontal chest radiograph demonstrates no acute osseous or superficial soft tissue abnormalities. Tunneled right-sided HD catheter terminates near the superior cavoatrial junction. The trachea is midline. The cardiac silhouette and mediastinum are within normal limits. No pneumothorax, pleural effusions, or consolidations. ATED BY: PHYLLIS ALVARADO DO DICTATED DATE/TIME: 02/23/251723 SIGNED BY: PHYLLIS ALVARADO DO SIGNED DATE/TIME: 02/23/251723 CC: X-Ray, Labs, Meds, VS Comment All studies performed the ED were evaluated by me personally. Laboratories studies revealed a anemia, a significant acute CHF exacerbation as well as confirmation of the chronic end-stage renal disease on dialysis concerns. Patient will be admitted for dialysis and fluid management. Time of 1ST Reevaluation: 18:12 Reevaluation 1ST: Unchanged Consultation: PCP Patient Education/Counseling: Diagnosis, Treatment Family Education/Counseling: Diagnosis, Treatment, No Family Present Departure 1 Departure Time of Disposition: 18:12 Impression: Primary Impression: End-stage renal disease on hemodialysis Additional Impressions: Anemia Acute exacerbation of CHF (congestive heart failure) Disposition: ADMITTED INPATIENT Condition: Fair Discharged With: Self Critical Care Note Critical Care Time?: No Stability Stability form required: No Heart Score Heart Score: Heart Score Response (Comments) Value History N/A 0 EKG N/A 0 Age N/A 0 Risk Factors N/A 0 Troponin N/A 0 Total 0 I personally scribed for ANTHONY BANG PAC (Apttus) on 02/23/25 at 17:50. Electronically submitted by Korina Rausch [email or web address]). I personally scribed for ANTHONY BANG PAC (Apttus) on 02/23/25 at 18:01. Electronically submitted by Korina Rausch ([email or web address]). ANTHONY BANG PAC Feb 23, 2025 17:50
[2025-02-23] MEDS: FUROSEMIDE 100 MG/10ML VIAL IV ONE (20:07)
[2025-02-23] MEDS ORDERED: ACETAMINOPHEN 325 MG TAB PO PRN (21:00)
[2025-02-23] MEDS ORDERED: ONDANSETRON HCL 4 MG/2 ML VIAL IV PRN (21:00)
[2025-02-23] MEDS ORDERED: DOCUSATE SOD 100 MG CAP PO PRN (21:00)
[2025-02-23] MEDS ORDERED: HYDROcodone-ACET 5/325MG TAB PO PRN (21:00)
[2025-02-23] MEDS ORDERED: DEXTROSE (50%) 50ML SYRG IV PRN (21:00)
--- NOTE | 2025-02-23 21:53 | DVHHP2 ---
History of Present Illness Reason for Visit: Generalized weakness History of Present Illness The patient is a 70-year-old male with past medical history of anemia, CHF, end- stage renal disease on hemodialysis, DM, hyperlipidemia, and hypertension who presented to [facility] ED with complaint of generalized weakness. Patient reports he has been feeling generalized weakness for the past 2 days, unable to receive dialysis for 1 week due to lack of insurance coverage. Patient was seen and evaluated in the ED, laboratory data shows WBC 7.1, hemoglobin 10.3, hematocrit 30.3, platelets 201, sodium 142, potassium 4.7, BUN 84, creatinine 7.31, glucose 115, calcium 9.0, BNP 1307.93, blood pressure 193/87 trending down to 147/72, heart rate 60, temperature 98.1 F, O2 saturation 99% on room air. Nephrology will follow the patient, please see medication orders section in the computer. On my assessment, patient denied chest pain, no headache, no diaphoresis, no dizziness, no shortness of breaths, no nausea, no vomiting, no fever, no chills. Patient was admitted for further evaluation and medical management. Past Medical History Anemia, CHF, CKF, DM, ESRD, High Lipids, HTN Past Surgical History Dialysis access Family History Reviewed, noncontributory to the management of this case. Past Social History The patient lives at home, denies smoking, alcohol or illicit drugs abuse. Review of Systems Constitutional: Yes: Weakness, Other (Fatigue); No: Fever, Chills, Sweats, Malaise Eyes: No: Pain, Vision change, Conjunctivae inflammation, Eyelid inflammation, Other, Redness ENT: No: Ear pain, Ear discharge, Nose pain, Nose discharge, Nose congestion, Mouth pain, Mouth swelling, Throat pain, Throat swelling, Other Respiratory: No: Cough, Dry, Shortness of breath, SOB with excertion, Wheezing, Hemoptysis, Pleuritic Pain, Sputum, Wheezing, Other Cardiovascular: No: Chest Pain, Palpitations, Orthopnea, Paroxysmal Noc. Dyspnea, Edema, Lt Headedness, Other Gastrointestinal: No: Nausea, Vomiting, Abdominal Pain, Diarrhea, Constipation, Melena, Hematochezia, Other Genitourinary: No Dysuria, No Frequency, No Incontinence, No Hematuria, No Retention; Other (On hemodialysis) Musculoskeletal: No: other, neck pain, shoulder pain, arm pain, back pain, hand pain, leg pain, foot pain Skin: No: Rash, Lesions, Jaundice, Bruising, Other Neurological: No: Weakness, Numbness, Incoordination, Change in speech, Confusion, Seizures, Other Allergies: Coded Allergies: NO KNOWN ALLERGIES (Unverified , 05/07/18) Medications Current Medications Medications Dose Ordered Sig/Scott Route Start Time Stop Time Status Last Admin Dose Admin Aspirin 81 mg DAILY PO 02/24/25 10:00 Atorvastatin Calcium 20 mg HS PO 02/23/25 22:00 Carvedilol 3.125 mg Q12HR PO 02/23/25 22:00 Amlodipine Besylate 5 mg DAILY PO 02/24/25 10:00 Hydralazine HCl 10 mg Q6HP PRN IV 02/23/25 21:00 Multivit/Ca Carb/ B Cmplx/FA/Prenat 1 tab DAILY PO 02/24/25 10:00 Sevelamer HCl 800 mg TIDWM PO 02/24/25 08:00 Diagnostic Test (Pha) 1 strip ACHS 02/23/25 22:00 Insulin Human Regular ACHS SC 02/23/25 22:00 Dextrose 50 ml UD PRN IV 02/23/25 21:00 Sodium Chloride 10 ml Q8HR IV 02/23/25 22:00 Acetaminophen/ Hydrocodone Bitart 1 tab Q4HP PRN PO 02/23/25 21:00 Ondansetron HCl 4 mg Q4HP PRN IV 02/23/25 21:00 Docusate Sodium 100 mg BIDPRN PRN PO 02/23/25 21:00 Acetaminophen 650 mg Q6HP PRN PO 02/23/25 21:00 Exam Vital Signs Vital Signs Date Time Temp Pulse Resp B/P (MAP) Pulse Ox O2 Delivery O2 Flow Rate FiO2 02/23/25 20:07 193/87 02/23/25 19:58 98.1 60 19 100 98.1 02/23/25 19:58 Room Air General Appearance: Alert, Oriented X3, Cooperative, No acute distress HEENT: Atraumatic, PERRLA, EOMI, Mucous membr. moist/pink Respiratory: Normal air movement Cardiovascular: Regular rate, Normal S1, Normal S2, No murmurs Abdominal: Normal bowel sounds, Soft, No tenderness, No hepatospenomegaly, No masses Extremities: No clubbing, No cyanosis, No edema, Normal pulses, No tenderness/swelling Skin: No rashes, No breakdown, No significant lesion Neuro: Normal speech, Normal tone, Sensation intact, Cranial nerves 3-12 NL, Reflexes 2+, Other (Generalized weakness) Psych/Mental Status: Mental status NL, Mood NL Labs/Xrays Labs Test 02/23/25 19:40 02/23/25 16:28 02/23/25 15:46 Range/Units Troponin I High Sensitivity 46 </=54 ng/L White Blood Count 7.1 4.4-10.8 10^3/uL Red Blood Count 3.18 L 4.5-5.90 10^6/uL Hemoglobin 10.3 L 13.5-17.5 g/dL Hematocrit 30.3 L 41.0-53.0 % Mean Corpuscular Volume 95.6 80.0-100.0 fL Mean Corpuscular Hemoglobin 32.3 H 28.0-32.0 pg Mean Corpuscular Hemoglobin Concent 33.8 32.0-36.0 g/dL Red Cell Distribution Width 14.3 11.8-14.3 % Platelet Count 201 140-450 10^3/uL Mean Platelet Volume 8.2 6.9-10.8 fL Neutrophils (%) (Auto) 74.4 37.0-80.0 % Lymphocytes (%) (Auto) 16.6 10.0-50.0 % Monocytes (%) (Auto) 6.1 0.0-12.0 % Eosinophils (%) (Auto) 2.0 0.0-7.0 % Basophils (%) (Auto) 0.9 0.0-2.0 % Neutrophils # (Auto) 5.3 1.6-8.6 10 ^3/uL Lymphocytes # (Auto) 1.2 0.4-5.4 10 ^3/uL Monocytes # (Auto) 0.4 0-1.3 10 ^3/uL Eosinophils # (Auto) 0.1 0-0.8 10 ^3/uL Basophils # (Auto) 0.1 0-0.2 10 ^3/uL Nucleated Red Blood Cells 0.0 % Sodium Level 142 136-145 mmol/L Potassium Level 4.7 3.5-5.1 mmol/L Chloride Level 107 98-107 mmol/L Carbon Dioxide Level 22 20-31 mmol/L Anion Gap 13 5-15 Blood Urea Nitrogen 84 *H 9-23 mg/dL Creatinine 7.31 H 0.700-1.30 mg/dL Glomerular Filtration Rate Calc 8 >90 mL/min BUN/Creatinine Ratio 11.5 10.0-20.0 Serum Glucose 115 H 74-106 mg/dL Calcium Level 9.0 8.7-10.4 mg/dL Total Bilirubin 0.5 0.2-1.0 mg/dL Aspartate Amino Transferase (AST) 17 13-40 U/L Alanine Aminotransferase (ALT) < 9 7-40 U/L Alkaline Phosphatase 83 46-116 U/L B-Type Natriuretic Peptide 1307.93 0-100 pg/mL Total Protein 6.8 5.7-8.2 g/dL Albumin 4.0 3.2-4.8 g/dL POC Glucose 117 H 70-106 mg/dl PATIENT: HILTON COLEMAN AACCT: [id number] UNIT: [id number] : 12/08/1954 LOC: ER ROOM / BED: / AGE / SEX: 70 / M ADM STATUS: REG ER SERVICE 1616 ORDERING PHYSICIAN: ANTHONY BANG PAC PROCEDURE(s): CXRP - CHEST PORTABLE REASON: Chest pain ORDER NUMBER(s): [id number], ACCESSION NUMBER(s): [id number] EXAM: XY CHEST PORTABLE TECHNIQUE: Single frontal chest radiograph CLINICAL HISTORY: Chest pain COMPARISON: XY CHEST PORTABLE on DOS: 02/14/25, XY CHEST PORTABLE on DOS: 11/25/24, XY CHEST PORTABLE on DOS: 08/06/24 Findings/Impression: Frontal chest radiograph demonstrates no acute osseous or superficial soft tissue abnormalities. Tunneled right-sided HD catheter terminates near the superior cavoatrial junction. The trachea is midline. The cardiac silhouette and mediastinum are within normal limits. No pneumothorax, pleural effusions, or consolidations. Assessment/Plan Assessment/Plan Generalized weakness End-stage renal disease on hemodialysis Anemia, unspecified Hypertensive urgency Acute exacerbation of CHF (congestive heart failure) Plan 1. Admit to telemetry unit 2. Breathing treatment 3. Pain control management 4. Management of fluids and electrolytes 5. Consultation for Nephrology 6. Diagnostic tests chest x-ray 7. DVT prophylaxis-on aspirin 8. Repeat labs CBC, CMP in a.m. 9. Continue with current medical management 10. Treatment plan discussed with patient and RN. Patient verbalized understanding. Plan discussed with: Patient, Other (RN) My Orders Orders - DESTIN PERALTA DNP Procedure Category Date Status Time Aspirin Tablet PHA 02/24/25 In Process 10:00 Atorvastatin (Lipitor) PHA 02/23/25 In Process 22:00 Carvedilol Tablet PHA 02/23/25 In Process (Coreg Tablet) 22:00 Amlodipine Tablet PHA 02/24/25 In Process (Norvasc Tablet) 10:00 Hydralazine Injection PHA 02/23/25 In Process (Apresoline Inject 21:00 *Dr. [facility] CONS 02/23/25 Transmitted -[place] 20:57 B-Complex W/ C & PHA 02/24/25 In Process Folic Tablet 10:00 Sevelamer (Renagel) PHA 02/24/25 In Process 08:00 Glucose Blood PHA 02/23/25 In Process (Accu-Chek Comfort 22:00 Insulin R (Human) PHA 02/23/25 In Process (Insulin R) 22:00 Dextrose 50% Syringe PHA 02/23/25 In Process 21:00 Allergies LIZ 02/23/25 In Process 20:57 Code Status CODE 02/23/25 Transmitted 20:57 Renal DIET 02/24/25 Transmitted Standard(2gna,3gk,Lopho) Breakfast Sodium Chloride Lock PHA 02/23/25 In Process (Saline Lock Ns) 22:00 Oxygen Per Hour RT 02/23/25 Transmitted 20:57 Hydrocodone-Acet PHA 02/23/25 In Process 5/325mg Tab ([place] 21:00 Ondansetron Hcl PHA 02/23/25 In Process (Zofran) 21:00 Docusate Sodium PHA 02/23/25 In Process Capsule (Colace 21:00 Complete Blood Count LAB 02/24/25 Verified 04:00 Comprehensive LAB 02/24/25 Verified Metabolic Panel 04:00 Condition: Serious LIZ 02/23/25 In Process 20:57 Acetaminophen Tablet PHA 02/23/25 In Process (Tylenol Tablet) 21:00 Bedrest With Bathroom LIZ 02/23/25 In Process Privileg 20:57 Maintain Bed Rest LIZ 02/23/25 In Process 20:57 Sequential LIZ 02/23/25 In Process Compression Device Problem List: (1) Generalized weakness (2) End-stage renal disease on hemodialysis (3) Anemia, unspecified (4) Hypertensive urgency (5) Acute exacerbation of CHF (congestive heart failure) Date of Service: Feb 23, 2025 Billing Provider: DESTIN PERALTA DNP Common Visit Codes: [id number] INP/OBS CARE (HIGH) DESTIN PERALTA DNP Feb 23, 2025 21:53
[2025-02-23 21:58] LABS: Urine Bacteria None Seen /hpf (None Seen)
[2025-02-23] MEDS ORDERED: MORPHINE SULFATE INJ 2 MG/ml SYRG IV PRN (22:00)
[2025-02-23] MEDS ORDERED: NITROGLYCERIN 0.4 MG SL TAB SL PRN (22:00)
[2025-02-23] MEDS: InsuLIN REG 1unit/0.01ml Soln (100units/ml) SC SCH (22:00)
[2025-02-23] MEDS: ACCU-CHEK COMFORT CURVE STRIP VI SCH (22:17)
[2025-02-23 22:22] LABS: Urine Blood 2+ /uL (Negative); Urine Clarity Clear (Clear); Urine Color Light-Yellow (Yellow); Urine Protein, UAD 3+ (Negative); Urine Specific Gravity 1.014 (1.001-1.035); Urine Squamous Epithelial Cell None Seen /hpf (<5); Urine Urobilinogen Normal (Negative); Urine WBC 2 /HPF (0-3)
[2025-02-23] MEDS: hydrALAZINE HCL 20 MG/ML VL IV PRN (23:11)
[2025-02-23] MEDS: CARVEDILOL 3.125 MG TAB PO SCH (23:11)
[2025-02-23] MEDS: ATORVASTATIN 20 MG TAB PO SCH (23:11)
[2025-02-23] MEDS: amLODIPine BESYLATE 5 MG TAB PO ONE (23:15)
[2025-02-23] MEDS: SODIUM CHLOR 0.9% PF (SALINE LOCK) 10ML VIAL/SYR IV SCH (23:17)
[2025-02-24] VITALS (7 sets, daily range): BP systolic 129–178; BP diastolic 56–94; PULSE 55–86; RESP 15–20; TEMP 96.8–98.4; O2SAT 96–100
[2025-02-24] MEDS: cloNIDine HCL 0.1 MG TAB PO PRN (01:12)
[2025-02-24 05:16] LABS: Basophils # (auto) 0.1 10 ^3/uL (0-0.2); Basophils % (auto) 0.8 % (0.0-2.0); Eosinophils # (auto) 0.2 10 ^3/uL (0-0.8); Eosinophils % (auto) 2.5 % (0.0-7.0); Hematocrit 29.9 % (41.0-53.0); Hemoglobin 10.2 g/dL (13.5-17.5); Lymphocytes # (auto) 1.4 10 ^3/uL (0.4-5.4); Lymphocytes % (auto) 19.4 % (10.0-50.0); Mean Corpuscular Hemoglobin 32.4 pg (28.0-32.0); Mean Corpuscular Hgb Conc. 33.9 g/dL (32.0-36.0); Mean Corpuscular Volume 95.4 fL (80.0-100.0); Monocytes # (auto) 0.5 10 ^3/uL (0-1.3); Monocytes % (auto) 6.7 % (0.0-12.0); Neutrophils # (auto) 5.1 10 ^3/uL (1.6-8.6); Neutrophils % (auto) 70.6 % (37.0-80.0); Platelet Count (auto) 187 10^3/uL (140-450); Red Blood Cells 3.14 10^6/uL (4.5-5.90); Red Cell Distribution Width 14.3 % (11.8-14.3); White Blood Cell 7.2 10^3/uL (4.4-10.8)
[2025-02-24 05:35] LABS: Albumin 3.8 g/dL (3.2-4.8); Alkaline Phosphatase 80 U/L (46-116); Anion Gap 16 (5-15); Aspartate Aminotransferase 15 U/L (13-40); BUN/Creatinine Ratio 11.7 (10.0-20.0); Calcium 9.5 mg/dL (8.7-10.4); Glucose 103 mg/dL (74-106); Potassium 4.1 mmol/L (3.5-5.1); Sodium 144 mmol/L (136-145); Total Protein 6.4 g/dL (5.7-8.2)
[2025-02-24 05:36] LABS: Bilirubin, Total 0.5 mg/dL (0.2-1.0)
[2025-02-24 05:39] LABS: Alanine Aminotransferase 9 U/L (7-40); Carbon Dioxide 20 mmol/L (20-31); Chloride 108 mmol/L (98-107)
[2025-02-24 05:41] LABS: Blood Urea Nitrogen 83 mg/dL (9-23)
[2025-02-24] MEDS: SEVELAMER 800 MG TAB PO SCH (08:23)
[2025-02-24] MEDS: ASPirin 81 mg TAB PO SCH (09:12)
[2025-02-24] MEDS: B-COMPLEX W/ C & FOLIC ACID(NEPHROVITE TAB) PO SCH (09:17)
[2025-02-24] MEDS: amLODIPine BESYLATE 5 MG TAB PO SCH (09:18)
--- NOTE | 2025-02-24 15:04 | DVHINCON2 ---
Date of service: Feb 24, 2025 Referring Physician Marge Reason for Consultation ESRD on dialysis History of Present Illness Patient is a 70 y/o male with hx of ESRD on HD, CHF, HTN, DM type 2, hyperlipidemia, anemia. Admitted for generalized weakness. Pt states he has not had dialysis in almost 2 weeks. States he is in the process of changing to another dialysis center/company. Tunneled cath in place. On admission labs found to have serum creat 7.11, BUN 83, K+ 4.1. Received nephrology consult for ESRD on dialysis. No edema noted, no dyspnea. Past Medical History ESRD on HD, CHF, HTN, DM type 2, hyperlipidemia, anemia. Allergies: Coded Allergies: NO KNOWN ALLERGIES (Unverified , 05/07/18) Home Meds Active Scripts Atorvastatin Calcium (ATORVASTATIN CALCIUM) 20 Mg Tab, 1 TAB PO DAILY, #30 TAB 5 Refills Prov:VINITA RICHARDS MD 11/28/24 Hydralazine HCl (Hydralazine HCl) 25 Mg Tab, 25 MG PO TID, #90 TAB 3 Refills Prov:VINITA RICHARDS MD 11/28/24 Metoprolol Succinate (Metoprolol Succinate Er) 50 Mg Tab, 1 TAB PO BID, #60 TAB 5 Refills Prov:VINITA RICHARDS MD 11/28/24 Nifedipine (Nifedipine Er) 60 Mg Tab, 1 TAB PO DAILY, #30 TAB 5 Refills Prov:VINITA RICHARDS MD 11/28/24 Nifedipine (Nifedipine Er) 30 Mg Tab, 1 TAB PO DAILY for 30 Days, #30 TAB 3 Refills Prov:GLORIA LEYVA NP 08/09/24 Atorvastatin Calcium (ATORVASTATIN CALCIUM) 20 Mg Tab, 20 MG PO HS for 30 Days, #30 TAB 3 Refills Prov:UMA GARNICA MD 12/23/23 Metoprolol Tartrate (LOPRESSOR TABLET) 50 Mg Tb, 50 MG PO BID for 30 Days, #60 TAB 3 Refills Prov:UMA GARNICA MD 12/23/23 Reported Medications Ferrous Sulfate (Ferosul) 325 Mg Tab, 1 TAB PO DAILY 12/20/23 Current Medications Current Medications Medications (Trade) Dose Ordered Sig/Scott Route PRN Reason Start Time Stop Time Status Last Admin Aspirin 81 mg DAILY PO 02/24/25 10:00 02/24/25 18:22 DC 02/24/25 09:12 Atorvastatin Calcium (Lipitor) 20 mg HS PO 02/23/25 22:00 02/24/25 18:22 DC 02/23/25 23:11 Carvedilol (Coreg Tablet) 3.125 mg Q12HR PO 02/23/25 22:00 02/24/25 18:22 DC 02/24/25 09:18 Amlodipine Besylate (Norvasc Tablet) 5 mg DAILY PO 02/24/25 10:00 02/24/25 18:22 DC 02/24/25 09:18 Hydralazine HCl (Apresoline Injection) 10 mg Q6HP PRN IV SBP>150 02/23/25 21:00 02/24/25 18:22 DC 02/24/25 06:30 Multivit/Ca Carb/ B Cmplx/FA/Prenat (Nephro-Cierra Tablet) 1 tab DAILY PO 02/24/25 10:00 02/24/25 18:22 DC 02/24/25 09:17 Sevelamer HCl (Renagel) 800 mg TIDWM PO 02/24/25 08:00 02/24/25 18:22 DC 02/24/25 12:11 Diagnostic Test (Pha) (Accu-Chek Comfort Curve T) 1 strip ACHS 02/23/25 22:00 02/24/25 18:22 DC 02/24/25 16:44 Insulin Human Regular (InsuLIN R) ACHS SC 02/23/25 22:00 02/24/25 18:22 DC Dextrose 50 ml UD PRN IV Blood Sugar LESS THAN 60 02/23/25 21:00 02/24/25 18:22 DC Sodium Chloride (Saline Lock Ns) 10 ml Q8HR IV 02/23/25 22:00 02/24/25 18:22 DC 02/24/25 14:18 Acetaminophen/ Hydrocodone Bitart (Springs 5/325MG Tab) 1 tab Q4HP PRN PO MODERATE PAIN (4-6 PAIN SCALE) 02/23/25 21:00 02/24/25 18:22 DC Ondansetron HCl (Zofran) 4 mg Q4HP PRN IV NAUSEA / VOMITING 02/23/25 21:00 02/24/25 18:22 DC Docusate Sodium (Colace Capsule) 100 mg BIDPRN PRN PO FOR CONSTIPATION 02/23/25 21:00 02/24/25 18:22 DC Acetaminophen (Tylenol Tablet) 650 mg Q6HP PRN PO PAIN SCALE 1-3 OR TEMP>100.4 02/23/25 21:00 02/24/25 18:22 DC Nitroglycerin (Ntrostat Sublingual) 0.4 mg Q5MINP PRN SL FOR CHEST PAIN 02/23/25 22:00 02/24/25 18:22 DC Morphine Sulfate 2 mg Q30M PRN IV FOR CHEST PAIN 02/23/25 22:00 02/24/25 18:22 DC Clonidine HCl (Catapres Tablet) 0.1 mg Q4HP PRN PO SBP>150 02/24/25 01:00 02/24/25 18:22 DC 02/24/25 01:12 Family History: Diabetes during Diabetes mellitus G8 MOTHER G8 FATHER Review of Systems 10 systems reviewed and negative except as per HPI. H&P Exam Vital Signs/I&O Vital Sign Date Time Temp Pulse Resp B/P (MAP) Pulse Ox O2 Delivery O2 Flow Rate FiO2 02/24/25 16:41 97.8 86 18 163/80 (107) 98 97.8 02/24/25 08:00 Room Air* 0 21 Intake and Output 02/23/25 02/24/25 19:00 07:00 Intake Total 500 ml Balance 500 ml Intake Oral 500 ml # Voids 2 # Bowel Movements 1 Physical Exam Gen: NAD, appears stated age HEENT:PERRLA Lungs: Bilateral air entry, No rales Heart: RRR, normal S1 and S2 Abd: Normoactive bowel sounds, nondistended Ext: No edema Neuro: A&O x4 Labs/Diagnostic Data Labs/Diagnostic Data Laboratory Tests Test 02/24/25 11:06 02/24/25 05:34 02/24/25 04:45 02/23/25 22:16 Range/Units POC Glucose 126 H 113 H 113 H 70-106 mg/dl White Blood Count 7.2 4.4-10.8 10^3/uL Red Blood Count 3.14 L 4.5-5.90 10^6/uL Hemoglobin 10.2 L 13.5-17.5 g/dL Hematocrit 29.9 L 41.0-53.0 % Mean Corpuscular Volume 95.4 80.0-100.0 fL Mean Corpuscular Hemoglobin 32.4 H 28.0-32.0 pg Mean Corpuscular Hemoglobin Concent 33.9 32.0-36.0 g/dL Red Cell Distribution Width 14.3 11.8-14.3 % Platelet Count 187 140-450 10^3/uL Mean Platelet Volume 8.5 6.9-10.8 fL Neutrophils (%) (Auto) 70.6 37.0-80.0 % Lymphocytes (%) (Auto) 19.4 10.0-50.0 % Monocytes (%) (Auto) 6.7 0.0-12.0 % Eosinophils (%) (Auto) 2.5 0.0-7.0 % Basophils (%) (Auto) 0.8 0.0-2.0 % Neutrophils # (Auto) 5.1 1.6-8.6 10 ^3/uL Lymphocytes # (Auto) 1.4 0.4-5.4 10 ^3/uL Monocytes # (Auto) 0.5 0-1.3 10 ^3/uL Eosinophils # (Auto) 0.2 0-0.8 10 ^3/uL Basophils # (Auto) 0.1 0-0.2 10 ^3/uL Nucleated Red Blood Cells 0.0 % Sodium Level 144 136-145 mmol/L Potassium Level 4.1 3.5-5.1 mmol/L Chloride Level 108 H 98-107 mmol/L Carbon Dioxide Level 20 20-31 mmol/L Anion Gap 16 H 5-15 Blood Urea Nitrogen 83 *H 9-23 mg/dL Creatinine 7.11 H 0.700-1.30 mg/dL Glomerular Filtration Rate Calc 8 >90 mL/min BUN/Creatinine Ratio 11.7 10.0-20.0 Serum Glucose 103 74-106 mg/dL Calcium Level 9.5 8.7-10.4 mg/dL Total Bilirubin 0.5 0.2-1.0 mg/dL Aspartate Amino Transferase (AST) 15 13-40 U/L Alanine Aminotransferase (ALT) 9 7-40 U/L Alkaline Phosphatase 80 46-116 U/L Total Protein 6.4 5.7-8.2 g/dL Albumin 3.8 3.2-4.8 g/dL Test 02/23/25 20:00 02/23/25 19:40 02/23/25 17:40 02/23/25 16:28 Range/Units Urine Color Light-yellow Yellow Urine Clarity Clear Clear Urine pH 6.0 5.0-9.0 Urine Specific [place] 1.014 1.001-1.035 Urine Protein 3+ H Negative Urine Ketones Negative Negative Urine Blood 2+ H Negative /uL Urine Nitrite Negative Negative Urine Bilirubin Negative Negative Urine Urobilinogen Normal Negative mg/dL Urine Leukocyte Esterase Negative Negative /uL Urine RBC 58 0 - 3 /hpf Urine Microscopic WBC 2 0-3 /HPF Urine Squamous Epithelial Cells None seen <5 /hpf Urine Bacteria None seen None Seen /hpf Urine Glucose Trace Normal mg/dL Troponin I High Sensitivity 46 9 43 </=54 ng/L White Blood Count 7.1 4.4-10.8 10^3/uL Red Blood Count 3.18 L 4.5-5.90 10^6/uL Hemoglobin 10.3 L 13.5-17.5 g/dL Hematocrit 30.3 L 41.0-53.0 % Mean Corpuscular Volume 95.6 80.0-100.0 fL Mean Corpuscular Hemoglobin 32.3 H 28.0-32.0 pg Mean Corpuscular Hemoglobin Concent 33.8 32.0-36.0 g/dL Red Cell Distribution Width 14.3 11.8-14.3 % Platelet Count 201 140-450 10^3/uL Mean Platelet Volume 8.2 6.9-10.8 fL Neutrophils (%) (Auto) 74.4 37.0-80.0 % Lymphocytes (%) (Auto) 16.6 10.0-50.0 % Monocytes (%) (Auto) 6.1 0.0-12.0 % Eosinophils (%) (Auto) 2.0 0.0-7.0 % Basophils (%) (Auto) 0.9 0.0-2.0 % Neutrophils # (Auto) 5.3 1.6-8.6 10 ^3/uL Lymphocytes # (Auto) 1.2 0.4-5.4 10 ^3/uL Monocytes # (Auto) 0.4 0-1.3 10 ^3/uL Eosinophils # (Auto) 0.1 0-0.8 10 ^3/uL Basophils # (Auto) 0.1 0-0.2 10 ^3/uL Nucleated Red Blood Cells 0.0 % Sodium Level 142 136-145 mmol/L Potassium Level 4.7 3.5-5.1 mmol/L Chloride Level 107 98-107 mmol/L Carbon Dioxide Level 22 20-31 mmol/L Anion Gap 13 5-15 Blood Urea Nitrogen 84 *H 9-23 mg/dL Creatinine 7.31 H 0.700-1.30 mg/dL Glomerular Filtration Rate Calc 8 >90 mL/min BUN/Creatinine Ratio 11.5 10.0-20.0 Serum Glucose 115 H 74-106 mg/dL Calcium Level 9.0 8.7-10.4 mg/dL Total Bilirubin 0.5 0.2-1.0 mg/dL Aspartate Amino Transferase (AST) 17 13-40 U/L Alanine Aminotransferase (ALT) < 9 7-40 U/L Alkaline Phosphatase 83 46-116 U/L B-Type Natriuretic Peptide 1307.93 0-100 pg/mL Total Protein 6.8 5.7-8.2 g/dL Albumin 4.0 3.2-4.8 g/dL Test 02/23/25 15:46 Range/Units POC Glucose 117 H 70-106 mg/dl Plan/Recommendation IMP ESRD on HD- missed several sessions HTN Hx DM type 2 Generalized weakness REC HD today chemistry panel Strict I&Os Pt will need chair time verified prior to discharge Will continue to follow Thank you for the consult Case discussed with Dr. Alejo Aragon Plan discussed with: Patient DINA [employer]ZA [employer] STUNNER Feb 24, 2025 15:03
[2025-02-24] MEDS: SODIUM CHL 0.9% 1000 ML BAG XX ONE (15:45)
--- NOTE | 2025-02-24 18:08 | DVHDS2 ---
Discharge Summary Date of Admission Feb 23, 2025 at 21:52 Date of Discharge: Feb 24, 2025 Labs/Diagnostic Data: Laboratory Results Test 02/24/25 11:06 02/24/25 04:45 02/23/25 20:00 02/23/25 19:40 POC Glucose 126 mg/dl (70-106) White Blood Count 7.2 10^3/uL (4.4-10.8) Red Blood Count 3.14 10^6/uL (4.5-5.90) Hemoglobin 10.2 g/dL (13.5-17.5) Hematocrit 29.9 % (41.0-53.0) Mean Corpuscular Volume 95.4 fL (80.0-100.0) Mean Corpuscular Hemoglobin 32.4 pg (28.0-32.0) Mean Corpuscular Hemoglobin Concent 33.9 g/dL (32.0-36.0) Red Cell Distribution Width 14.3 % (11.8-14.3) Platelet Count 187 10^3/uL (140-450) Mean Platelet Volume 8.5 fL (6.9-10.8) Neutrophils (%) (Auto) 70.6 % (37.0-80.0) Lymphocytes (%) (Auto) 19.4 % (10.0-50.0) Monocytes (%) (Auto) 6.7 % (0.0-12.0) Eosinophils (%) (Auto) 2.5 % (0.0-7.0) Basophils (%) (Auto) 0.8 % (0.0-2.0) Neutrophils # (Auto) 5.1 10 ^3/uL (1.6-8.6) Lymphocytes # (Auto) 1.4 10 ^3/uL (0.4-5.4) Monocytes # (Auto) 0.5 10 ^3/uL (0-1.3) Eosinophils # (Auto) 0.2 10 ^3/uL (0-0.8) Basophils # (Auto) 0.1 10 ^3/uL (0-0.2) Nucleated Red Blood Cells 0.0 % Sodium Level 144 mmol/L (136-145) Potassium Level 4.1 mmol/L (3.5-5.1) Chloride Level 108 mmol/L (98-107) Carbon Dioxide Level 20 mmol/L (20-31) Anion Gap 16 (5-15) Blood Urea Nitrogen 83 mg/dL (9-23) Creatinine 7.11 mg/dL (0.700-1.30) Glomerular Filtration Rate Calc 8 mL/min (>90) BUN/Creatinine Ratio 11.7 (10.0-20.0) Serum Glucose 103 mg/dL (74-106) Calcium Level 9.5 mg/dL (8.7-10.4) Total Bilirubin 0.5 mg/dL (0.2-1.0) Aspartate Amino Transferase (AST) 15 U/L (13-40) Alanine Aminotransferase (ALT) 9 U/L (7-40) Alkaline Phosphatase 80 U/L (46-116) Total Protein 6.4 g/dL (5.7-8.2) Albumin 3.8 g/dL (3.2-4.8) Urine Color Light-yellow (Yellow) Urine Clarity Clear (Clear) Urine pH 6.0 (5.0-9.0) Urine Specific [place] 1.014 (1.001-1.035) Urine Protein 3+ (Negative) Urine Ketones Negative (Negative) Urine Blood 2+ /uL (Negative) Urine Nitrite Negative (Negative) Urine Bilirubin Negative (Negative) Urine Urobilinogen Normal mg/dL (Negative) Urine Leukocyte Esterase Negative /uL (Negative) Urine RBC 58 /hpf (0 - 3) Urine Microscopic WBC 2 /HPF (0-3) Urine Squamous Epithelial Cells None seen /hpf (<5) Urine Bacteria None seen /hpf (None Seen) Urine Glucose Trace mg/dL (Normal) Troponin I High Sensitivity 46 ng/L (</=54) Test 02/23/25 16:28 B-Type Natriuretic Peptide 1307.93 pg/mL (0-100) Other Laboratory Tests 02/24/25 04:45 Brief Hx & Hospital Course: 70-year-old male with a known history of hypertension, dyslipidemia, end-stage renal disease on hemodialysis recently started about two months ago presented to the hospital with as he is missing hemodialysis for last one week. Eventually nephrology was consulted. Patient received hemodialysis. Patient needs a chair time as he is in a transition from a different dialysis team to another dialysis team. Patient was recommended to stay in the hospital for chair time. But patient left against medical advice. Condition at Discharge: Undetermined Final Diagnosis/Problems List 1. Generalized weakness 2. End-stage renal disease on hemodialysis 3. Suspected fluid overload secondary to missed hemodialysis 4. Noncompliance 5. Congestive heart failure not in exacerbation Discharge Disposition: AMA SNF Discharge Will this Physician continue t: No Discharge Statement: "Patient was advised to return to the ER or call 911 if any headaches, dizziness, shortness of breath, chest pain, abdominal pain, bleeding, fevers, or worsening of medical condition. Patient was counseled about treatment plan, medications, possible side effects, patientverbalized understanding. All questions were answered to the best of my ability. This discharge took greater then 30 minutes in planning, reviewing documentation, counseling the patient, and discussing with other team members." ASSESSMENT ASSESSMENT Assessment Date of Service: Feb 24, 2025 Billing Provider: LEWIS ACOSTA MD Common Visit Codes: 99345-IPZ/OBS DISCH DAY >30min LEWIS ACOSTA MD Feb 24, 2025 18:08
== END 2025-02-24 18:05 | disposition left against medical advice (07) | DRG 640 ==
LOC: ER 15:37 → OVERFLOW 21:52 → TELE-WESTW 21:53
PROVIDERS: ADMIT Nurse Practitioner Family; ATTEND Nurse Practitioner Family
PROC: 5A1D70Z Performance of Urinary Filtration, Intermittent, Less than 6 Hours Per Day (ICD-10-PCS; principal; 2025-02-24)
DX: E87.70 Fluid overload, unspecified (principal); N18.6 End stage renal disease; I13.2 Hypertensive heart and chronic kidney disease with heart failure and with stage 5 chronic kidney disease, or end stage renal disease; D64.9 Anemia, unspecified; Z53.29 Procedure and treatment not carried out because of patient's decision for other reasons; I16.0 Hypertensive urgency; I50.9 Heart failure, unspecified; E11.22 Type 2 diabetes mellitus with diabetic chronic kidney disease; E78.5 Hyperlipidemia, unspecified; Z99.2 Dependence on renal dialysis; Z79.899 Other long term (current) drug therapy; Z83.3 Family history of diabetes mellitus; Z91.158 Patient's noncompliance with renal dialysis for other reason
CPT/HCPCS: 36415; 71045; 80053; 81001; 82962; 83880; 84484; 85025; 90935; 96374; 96375; G0378